=== PATIENT | male | born 1950 | race Caucasian/White ===

== ENCOUNTER 2018-10-03 08:20 | Inpatient (IN) ==
--- NOTE | 2018-09-03 09:55 | Anesthesiology Consultation ---
Date of Service September 03, 2018 Assessment & Plan (1) Encounter for pre-operative examination: Chart Review Chart Review: Acceptable Risk for Surgery and Patient seen in Pre Admission Testing Teaching & Discussion Instructed NPO after midnight before surgery, except medications with 15 cc of water. Medication instructions provided according to the PAT guidelines. History Surgery Operation Date: 10/03/18 09:10 Proposed Procedures p Right Total Shoulder Replacement - Lul Jordan, Height/Weight Height: 6 ft 5 in Weight: 131 kg Allergies Allergy/AdvReac Type Severity Reaction Status Date / Time ibuprofen AdvReac Mild NASAL Verified 09/02/18 08:51 STUFFINESS Medications Home Medications Medication Instructions Recorded Confirmed Last Taken acetaminophen [Tylenol Extra 1,000 mg PO BID PRN 09/02/18 09/02/18 Unknown Strength] atorvastatin 20 mg PO QAM 09/02/18 09/02/18 Unknown fluticasone-salmeterol [Advair 1 inh INHALATION BID 09/02/18 09/02/18 Unknown Diskus] losartan-hydrochlorothiazide 1 tab PO QAM 09/02/18 09/02/18 Unknown albuterol sulfate 1 puff INHALATION Q6H PRN 09/03/18 09/03/18 Unknown meloxicam 15 mg PO QAM 09/03/18 09/03/18 Unknown omeprazole 20 mg PO QAM 09/03/18 09/03/18 Unknown Past Medical History Medical History MRSA nasal colonization Pt tested + prior to lumbar surgery several years ago. Infection control made aware. Asthma Albuterol rescue ~ 1x per week GERD (gastroesophageal reflux disease) Gout Hyperlipidemia Hypertension Hyperuricemia PVC (premature ventricular contraction) PER 2015 HOLTER, "RARE" ECTOPY. BIGEMINY NOTED ON MONITOR ONCE-- EVALUATED BY DR YARBROUGH 2015. ECHO WNL. PT ASYMPTOMATIC. Restless legs Past Surgical History Surgical History History of adenoidectomy History of colonoscopy History of discectomy LUMBAR AREA (X3 SURGERIES WITHIN 21 DAYS) WITH REVISIONS DUE TO DURA BEING CUT DURING FIRST SURGERY History of endoscopic sinus surgery History of esophagogastroduodenoscopy (EGD) History of herniorrhaphy UMBILICAL History of tonsillectomy Past Anesthesia History No Hx of Anesthesia Complications and No Family Hx of Anesthesia Complications History of PONV No Motion Sickness Screening History of Motion Sickness: No Social History Smoking Status: Never smoker Do You Dip or Chew Tobacco: No Hx Alcohol Use: Yes Alcohol type: beer alcohol intake frequency: a few times a week Hx Substance Use: No substance use type: does not use Exercise / Class Metabolic Activity II 4-5 Yardwork/Stairs/Walk up hill Review of Systems Pt denies any recent chest pain, shortness of breath, palpitations, cough, fever or URI. Physical Exam Vital Signs BP: 124/75 P: 61 SPO2: 95% RA T: 98.1 R: 16 ENMT Mouth: + small oral opening; no dental restorations, no chipped teeth and no loose teeth Thyromental Distance: > or= 3.5 Finger Breadths (3.5) Mallampati Class: II Neck normal visual inspection and + thick neck; neck extension not limited Respiratory normal respiratory effort Auscultation: lungs clear to auscultation bilaterally Cardiovascular Rate/Rhythm: regular rate and regular rhythm Heart Sounds: no murmur Vessels: no carotid bruit Testing Electrocardiogram Date: 10/23/17 Findings: + SB @ (59) with frequent PVCs. Otherwise normal. Chest X-Ray Date: 09/03/18 Findings: + NAD Stress Test Date: 04/15/15 Resting EF: 55-59% The examination is adequate to evaluate the referral indication. The stress test was terminated due to fatigue No symptoms were noted. The stress EKG response showed no evidence of ischemia. The exercise echocardiographic examination is normal without resting left ventricular wall motion abnormalities or inducible ischemia. Laboratory Results 09/03/18 10:20 09/03/18 10:20 Blood Type O Positive 09/03/18 10:20 Antibody Screen NEGATIVE 09/03/18 10:20 PT 10.7 Seconds (9.0-12.0) 09/03/18 10:20 INR 1.0 (0.9-1.1) 09/03/18 10:20 APTT 29.3 Seconds (21.0-31.0) 09/03/18 10:20
--- NOTE | 2018-09-03 10:16 | PAT Medication Instructions ---
Medication Instructions Date of Service September 03, 2018 Home Medications acetaminophen [Tylenol Extra Strength] 1,000 mg PO BID PRN atorvastatin 20 mg PO QAM fluticasone-salmeterol [Advair Diskus] 1 inh INHALATION BID losartan-hydrochlorothiazide 1 tab PO QAM albuterol sulfate 1 puff INHALATION Q6H PRN meloxicam 15 mg PO QAM omeprazole 20 mg PO QAM ASK your surgeon for instructions meloxicam 15 mg PO QAM DO NOT take the morning of surgery losartan-hydrochlorothiazide 1 tab PO QAM Take morning of surgery With a small sip of water, OTHERWISE NOTHING TO EAT OR DRINK AFTER MIDNIGHT: acetaminophen [Tylenol Extra Strength] 1,000 mg PO BID PRN (if needed, may be taken up to four hours before surgery) atorvastatin 20 mg PO QAM fluticasone-salmeterol [Advair Diskus] 1 inh INHALATION BID albuterol sulfate 1 puff INHALATION Q6H PRN (if needed, and bring with you to the hospital) omeprazole 20 mg PO QAM Take evening before surgery acetaminophen [Tylenol Extra Strength] 1,000 mg PO BID PRN (if needed) fluticasone-salmeterol [Advair Diskus] 1 inh INHALATION BID albuterol sulfate 1 puff INHALATION Q6H PRN (if needed) Other Notes If you have any questions please call us at [phone] or [phone] or [phone] or [phone]
--- NOTE | 2018-09-03 10:45 | XRay Report ---
XR chest Pre-admission PA/Lat CLINICAL HISTORY: pat preoperative evaluation COMPARISON STUDY: 04/15/2016 FINDINGS: Minimal platelike atelectasis left base. Lungs otherwise appear clear. Diaphragms are destiny h. Moderate degenerative change thoracic spine. IMPRESSION: No acute process. The above report was generated using voice recognition software. It may contain grammatical, syntax or spelling errors. Electronically signed by: Christopher Garcia M.D. 09/03/2018 10:44 AM
[2018-09-03 11:05] LABS: Basophils # (auto) 0.03 K/uL (0-0.2); Basophils % (auto) 0.4 %; Eosinophils # (auto) 0.22 K/uL (0-0.5); Eosinophils % (auto) 2.8 %; Hematocrit (blood only) 42.4 % (42-52); Hemoglobin 14.9 g/dL (14.0-18.0); Immature Granulocytes # (auto) 0.01 K/uL (0.00-0.02); Immature Granulocytes % (auto) 0.1 %; Lymphocytes # (auto) 1.84 K/uL (1.2-3.4); Lymphocytes % (auto) 23.7 %; Mean Corpuscular Hgb Conc 35.1 g/dL (32-36); Mean Corpuscular Volume 90.2 fL (80-100); Mean Platelet Volume 11.6 fL (7.4-10.4); Monocytes # (auto) 0.98 K/uL (0.11-0.59); Monocytes % (auto) 12.6 %; Neutrophils % (auto) 60.4 %; Platelet Count 177 K/uL (130-400); RDW Coefficient of Variation 13.4 % (11.5-14.5); RDW Standard Deviation 43.9 fL (36.4-46.3); White Blood Count 7.78 K/uL (4.8-10.8)
[2018-09-03 11:29] LABS: Calcium 9.1 mg/dl (8.5-10.1); Creatinine Clr Calc Pharmacy 92.9 ml/min; Est GFR (African American) 76.2; Est GFR (Non-African American) 65.7; Potassium 3.9 mmol/L (3.5-5.1)
[2018-09-03 12:40] LABS: Partial Thromboplastin Ratio 1.1; Partial Thromboplastin Time 29.3 Seconds (21.0-31.0); Prothrombin Time 10.7 Seconds (9.0-12.0)
--- NOTE | 2018-10-02 15:50 | History & Physical Report ---
Date of Service October 02, 2018 Assessment & Plan (1) Primary osteoarthritis of right shoulder: We will proceed with a right total shoulder arthroplasty. Postoperatively he will be placed in the sling and kept overnight for postoperative medical management. He plans to use energy physical therapy upon discharge. Present on Admission?: Yes History of Present Illness Chief Complaint: Primary osteoarthritis of the right shoulder Primary Care Provider: Melquiades Persaud MD Dax is a pleasant 67-year-old male who is been having a year and a half history of right shoulder pain. X-rays, MRI, and clinical examination have been diagnostic for primary osteoarthritis of the right shoulder. After failing conservative treatment, he is elected proceed with a right total shoulder arthroplasty. Allergies Allergy/AdvReac Type Severity Reaction Status Date / Time ibuprofen AdvReac Mild NASAL Verified 09/02/18 08:51 STUFFINESS Home Medications Home Medications Medication Instructions Recorded Confirmed Type acetaminophen [Tylenol Extra 1,000 mg PO BID PRN 09/02/18 09/02/18 History Strength] atorvastatin 20 mg PO QAM 09/02/18 09/02/18 History fluticasone-salmeterol [Advair 1 inh INHALATION BID 09/02/18 09/02/18 History Diskus] losartan-hydrochlorothiazide 1 tab PO QAM 09/02/18 09/02/18 History albuterol sulfate 1 puff INHALATION Q6H PRN 09/03/18 09/03/18 History meloxicam 15 mg PO QAM 09/03/18 09/03/18 History omeprazole 20 mg PO QAM 09/03/18 09/03/18 History Past Med/Surg History Medical History Asthma Albuterol rescue ~ 1x per week GERD (gastroesophageal reflux disease) Gout Hyperlipidemia Hypertension Hyperuricemia MRSA nasal colonization Pt tested + prior to lumbar surgery several years ago. Infection control made aware. Patient had 2 negative MRSA nasal swabs 09/03/18 and 09/10/18. PVC (premature ventricular contraction) PER 2015 HOLTER, "RARE" ECTOPY. BIGEMINY NOTED ON MONITOR ONCE-- EVALUATED BY DR YARBROUGH 2015. ECHO WNL. PT ASYMPTOMATIC. Restless legs Surgical History History of adenoidectomy History of colonoscopy History of discectomy LUMBAR AREA (X3 SURGERIES WITHIN 21 DAYS) WITH REVISIONS DUE TO DURA BEING CUT DURING FIRST SURGERY History of endoscopic sinus surgery History of esophagogastroduodenoscopy (EGD) History of herniorrhaphy UMBILICAL History of tonsillectomy Social History Current Living Situation: Spouse Feels Safe at Home: Yes Smoking Status: Never smoker Second Hand Exposure: No Hx Alcohol Use: Yes Alcohol type: beer Alcohol Intake Frequency: a few times a week Hx Substance Use: No Beliefs That Will Affect Care: None Preferred Language: Danish Review of Systems All systems reviewed & are unremarkable except as noted in HPI & below Physical Exam 2 Constitutional: WD/WN, vitals as above Eyes: PERRL, conjunctivae normal, anicteric sclerae ENMT: external ear and nose normal, oropharynx normal Neck: trachea midline, no thyromegaly Respiratory: normal respiratory effort Cardiovascular: RRR, no murmur, no edema Gastrointestinal (Abdomen): normal bowel sounds, soft, nontender, no hepatosplenomegaly Musculoskeletal: Physical examination of the right shoulder reveals decreased range of motion and crepitis throughout. There is good strength with full can testing and external rotation. There is tenderness palpation along the anterior glenohumeral joint line. The right upper extremity is neurovascularly intact. Psychiatric: A+Ox3, euthymic affect Results & Data Diagnostic Findings Radiographs of the right shoulder show osteoarthritis of the glenohumeral joint. There is joint space narrowing, osteophyte formation, and [id number] articulation.
[~2018-10-03 08:20] MED LIST: ACETAMINOPHEN 500 MG TAB PO SCH; CEFAZOLIN 3000MG 65 ML IV SCH; FAMOTIDINE 20 MG TAB PO SCH; GABAPENTIN 300 MG PO SCH; LR 15ML/HR IV SCH; LR 60ML/HR IV SCH; MIDAZOLAM HCL 1 MG/ML 2ML VIAL ONE; ROPIVACAINE 0.5% 5 MG/ML 30 ML VIAL ONE; ROPIVACAINE 0.5% HCL/PF 150 MG, BUPIVACAINE 0.5% MPF 30 ML, EPINEPHrine 30MG/30ML (OR U... INFIL SCH; TRANEXAMIC ACID 1,000 MG **IV Intra-op IV SCH; TRANEXAMIC ACID 1,000 MG **IV Pre-op IV SCH; fentaNYL citrate 100 MCG/2 ML VIAL ONE
--- NOTE | 2018-10-03 09:12 | History & Physical Bridge Note ---
Date of Service October 03, 2018 History & Physical Bridge Note I have examined the patient, reviewed the History & Physical and in the interval since the performance of the History & Physical I have noted the following changes of clinical significance: no changes noted
[2018-10-03] MEDS ORDERED: POVIDONE-IODINE OP SOLN 30 ML BTL ONE (09:29)
[2018-10-03] MEDS ORDERED: ORTHO JOINT ANESTHETIC ONE (09:29)
[2018-10-03] MEDS ORDERED: ATROPINE SULFATE 0.1 MG/ML 10ML SYR IV PRN (09:59)
[2018-10-03] MEDS ORDERED: HYDROmorphone INJ 0.5 MG/0.5 ML SYR IV PRN (09:59)
[2018-10-03] MEDS ORDERED: ONDANSETRON INJ 2 MG/ML 2 ML VIAL IV PRN ×2 (09:59→14:15)
[2018-10-03] MEDS ORDERED: fentaNYL citrate 100 MCG/2 ML VIAL IV PRN (09:59)
[2018-10-03] MEDS ORDERED: ePHEDrine sulfate 50 MG/ML AMP IV PRN (09:59)
[2018-10-03] MEDS ORDERED: MIDAZOLAM HCL 1 MG/ML 2ML VIAL ONE (10:25)
[2018-10-03] MEDS ORDERED: ONDANSETRON INJ 2 MG/ML 2 ML VIAL ONE ×2 (10:25→11:22)
[2018-10-03] MEDS ORDERED: fentaNYL citrate 100 MCG/2 ML VIAL ONE ×3 (11:16→12:45)
[2018-10-03] MEDS ORDERED: HYDROmorphone INJ 2 MG/ML SYR/VIAL ONE ×2 (11:17→11:28)
[2018-10-03] MEDS ORDERED: DEXAMETHASONE SOD INJ 4 MG/ML VIAL ONE (11:22)
[2018-10-03] MEDS ORDERED: NEOSTIGMINE METHYLSULFATE 5 MG/5 ML SYR ONE (11:22)
[2018-10-03] MEDS ORDERED: GLYCOPYRROLATE 0.2 MG/ML VIAL ONE (11:22)
[2018-10-03] MEDS ORDERED: PROPOFOL IV EMULSION 10 MG/ML 20 ML VIAL IV ONE (11:22)
[2018-10-03] MEDS ORDERED: LIDOCAINE HCL 2% 2 ML VIAL/AMP(20MG/ML) INFIL ONE (11:22)
[2018-10-03] MEDS ORDERED: ROCURONIUM BROMIDE 10 MG/ML 5 ML VIAL ONE (12:22)
--- NOTE | 2018-10-03 12:29 | Operative Report ---
Post Operative Report Pre & Post Diagnosis Operation Date: 10/03/18 10:40 Pre-Op Diagnosis: Primary Osteoarthritis Right Shoulder Post-Op Diagnosis: Primary Osteoarthritis Right Shoulder Procedure Operation Date: 10/03/18 10:40 Actual Procedures p Right Total Shoulder Replacement(Right) - Lul Jordan DO Surgeon Lul Jordan DO Computer Builder Lul Gamino PAC Estimated Blood Loss 250 Findings Consistent with Post-Op Diagnosis Specimens None Complications none Disposition Disposition: Recovery Room Indications Dax is a pleasant 68-year-old male who presented my office with chronic increasing right shoulder pain. MRI and clinical examination were diagnostic for primary osteoarthritis of the right shoulder. After failing conservative treatment, he elected to proceed with a right total shoulder arthroplasty. Description of Procedure Implants used: I used a Biomet Comprehensive total shoulder arthroplasty system with a size 17 press fit mini humeral stem, a size 50 x 21 eccentric humeral head, and a large size glenoid with a Regenerex peg. The glenoid was cemented in place with Palacos G cement. The patient arrived at [facility] for the above procedure. There were seen in the preoperative holding area and the operative extremity was identified and signed. They were given a preoperative antibiotic and an interscalene nerve block. They were taken back to the operating room, laid on table in supine position, and put under general anesthesia. They were then put into the beachchair position. The shoulder was then prepped and draped in sterile fashion. A timeout was done and the patient in the operative extremity was properly identified. A deltopectoral approach was used. Dissection was taken down through the fascia and the deltoid was retracted laterally and the conjoined tendon was retracted medially. The anterior shoulder was exposed. The long head of the biceps tendon was tenodesed to the upper border of the pectoralis major. The subscapularis was then released off the lesser tuberosity with a centimeter of cuff tissue remaining. The inferior capsule was released and the humeral head was dislocated. The rotator cuff was inspected and intact. A canal finding reamer was sent down the center of the humeral canal. Sequential reaming up to a size 17 reamer was done. Offset reamer a proximal humeral resection guide was placed. The proximal humerus was resected at 135 of inclination and 30 of retroversion. Inferior osteophytes were then removed and the glenoid was exposed. Time was spent doing an appropriate labral release. A [employer] signature guide was then attached onto the anterior rim of the glenoid. A 3.2 mm Steinmann pin was then placed in the total shoulder arthroplasty hole. The glenoid was then reamed with a propeller reamer. The central post cutter was then used to prepare for the central boss. The cannulated peripheral peg drill guide was then placed and 3 peg holes were drilled. The final size large glenoid was then cemented in place with Palacos G cement. Surrounding soft tissues were then injected with 100 cc of an orthopedic pain control cocktail. Once cement had dried the proximal humerus was once again exposed. Sequential broaching of the humerus up to a size 17 broach was done. Off that broach a size 50 x 21 eccentric humeral head was trialed. The shoulder was then reduced , brought through a full range of motion and felt to be stable. The shoulder was then dislocated and the broach was removed. The final size 17 mini humeral stem implant was then impacted into place. A size 50 x 21 eccentric humeral head was then impacted onto the humeral stem. The shoulder was then reduced and once again brought through a full range of motion and felt to be stable. The subscapularis was then tenodesed back to the lesser tuberosity with transosseous FiberWire sutures and side to side sutures with the arm in 45 of external rotation. 2 sutures were placed in the lateral rotator interval. The wound was then irrigated with 3 L of normal saline solution with bacitracin. Hemostasis was obtained. The skin was then closed with 2-0 Vicryl, 3-0V lock suture, and edie. A soft dressing was placed as well as a regular arm sling. The patient was then extubated and transferred to a hospital bed. There were taken to the postanesthesia care unit in stable condition. The tolerated the procedure well. I attest to the content of the Intraoperative Record and any orders documented therein. Any exceptions are noted below.
--- NOTE | 2018-10-03 13:21 | XRay Report ---
XR shoulder RT min 2V routine CLINICAL HISTORY: Post shoulder surgery COMPARISON: Right shoulder radiographs and CT of the right shoulder September 03, 2018. FINDINGS: Alignment of the right shoulder arthroplasty is anatomic. There is no fracture or unexpect ed radiopaque foreign body. There are skin edie. IMPRESSION: Expected findings following right shoulder arthroplasty. Electronically signed by: Jose Alberto Hoang M.D. 10/03/2018 1:20 PM
--- NOTE | 2018-10-03 13:58 | Anesthesiology Progress Note ---
Date of Service October 03, 2018 Anesthesia Post Procedure Vital Signs Vital Signs: Temp Pulse Pulse Resp BP Pulse Ox 10/03/18 13:40 36.3 C L 59 L 21 150/94 H 94 10/03/18 13:30 56 L 12 150/84 H 96 10/03/18 13:20 60 14 161/88 H 98 10/03/18 13:10 61 18 177/94 H 98 10/03/18 13:04 36.1 C L 67 12 173/92 H 98 10/03/18 09:21 36.5 C 59 L 18 139/87 95 Notes Mental Status: alert / awake / arousable and participated in evaluation Patient Amnestic to Procedure: Yes Nausea / Vomiting: adequately controlled Pain: adequately controlled Airway Patency, RR, SpO2: stable & adequate BP & HR: stable & adequate Hydration State: stable & adequate Anesthetic Complications: no major complications apparent and Pt Satisfied with anesthetic care Notes: I did a preop nerve block and immediately took patient into the OR. He did not have any appreciable sensory or motor loss prior to induction and intubation. He required some intraoperative narcotic but remained hemodynamically stable throughout the procedure. In the PACU, patient had full distal motor (hand) but was unable to fully abduct his operative shoulder (with sling loosened). He stated he had NO pain and felt only pressure around the surgical incision (tested all around bandage). I debated doing a post-op rescue block but given that patient felt numbness at surgical site, his lack of pain and given that he did not desire additional block/numbing medicine, this was not done. Patient meeting discharge criteria and will be transferred to floor in stable condition. Patient agrees with plan.
[2018-10-03] MEDS ORDERED: OXYCODONE HCL IR 5 MG TAB (IMMEDIATE RELEASE) PO PRN (14:15)
[2018-10-03] MEDS ORDERED: POLYETHYLENE (MIRALAX) 17 GM PACK PO PRN (14:15)
[2018-10-03] MEDS ORDERED: ALBUTEROL HFA 8 GM INHALER INH PRN (14:15)
[2018-10-03] MEDS ORDERED: BISACODYL 10 MG SUPP PR PRN (14:15)
[2018-10-03] MEDS ORDERED: NALOXONE HCL 0.4 MG/1 ML VIAL/CARP IV PRN (14:15)
[2018-10-03] MEDS ORDERED: METOCLOPRAMIDE HCL INJ 5 MG/ML 2 ML VIAL IV PRN (14:15)
[2018-10-03] MEDS ORDERED: MoRPHine SULFATE 2 MG/ML CARP IV PRN (14:15)
[2018-10-03] MEDS ORDERED: MAGNESIUM HYDROXIDE SUSP 30 ML UDC PO PRN (14:15)
[2018-10-03] MEDS: POTASSIUM CHLORIDE 10 MEQ in SODIUM CHLORIDE 0.9% 1000ML 1,000 ML IV SCH (15:27)
[2018-10-03] MEDS: LOSARTAN/HCTZ 50/12.5MG TAB PO SCH (15:31)
[2018-10-03] MEDS: KETOROLAC TROMETHAMINE 15 MG/ML VIAL IV SCH ×2 (18:07→23:59)
[2018-10-03] MEDS: CEFAZOLIN 2000MG 2,000 MG/15 ML SYR IV SCH (18:08)
[2018-10-03] MEDS: ERYTHROMYCIN OP OINT 5 MG/GM 3.5 GM TUBE OPL SCH ×2 (18:08→20:58)
[2018-10-03] MEDS: DOCUSATE SODIUM 100 MG CAP PO SCH (20:58)
[2018-10-03] MEDS: ACETAMINOPHEN 500 MG TAB PO SCH (20:59)
[2018-10-03] MEDS ORDERED: SENNA 8.6 MG TAB PO SCH (21:00)
[2018-10-03] MEDS: FLUTICASONE/SALMETEROL 250/50 (ADVAIR) 14 PUFF/1 INHALER INH SCH (21:00)
[2018-10-04] MEDS: POTASSIUM CHLORIDE 10 MEQ in SODIUM CHLORIDE 0.9% 1000ML 1,000 ML IV SCH (02:03)
[2018-10-04] MEDS: CEFAZOLIN 2000MG 2,000 MG/15 ML SYR IV SCH (02:03)
[2018-10-04] MEDS: ACETAMINOPHEN 500 MG TAB PO SCH (05:50)
[2018-10-04 05:51] LABS: Basophils # (auto) 0.01 K/uL (0-0.2); Basophils % (auto) 0.1 %; Hematocrit (blood only) 35.8 % (42-52); Hemoglobin 12.4 g/dL (14.0-18.0); Immature Granulocytes # (auto) 0.03 K/uL (0.00-0.02); Immature Granulocytes % (auto) 0.2 %; Lymphocytes # (auto) 1.23 K/uL (1.2-3.4); Lymphocytes % (auto) 8.4 %; Mean Corpuscular Hgb Conc 34.6 g/dL (32-36); Mean Corpuscular Volume 89.9 fL (80-100); Mean Platelet Volume 11.5 fL (7.4-10.4); Monocytes # (auto) 1.55 K/uL (0.11-0.59); Monocytes % (auto) 10.6 %; Neutrophils # (auto) 11.74 K/uL (1.4-6.5); Neutrophils % (auto) 80.7 %; Platelet Count 155 K/uL (130-400); RDW Coefficient of Variation 13.5 % (11.5-14.5); RDW Standard Deviation 44.4 fL (36.4-46.3); Red Blood Count 3.98 M/uL (4.7-6.1); White Blood Count 14.56 K/uL (4.8-10.8)
[2018-10-04] MEDS: KETOROLAC TROMETHAMINE 15 MG/ML VIAL IV SCH (05:51)
[2018-10-04 06:25] LABS: BUN Creatinine Ratio 19.4 (10-20); Calcium 8.2 mg/dl (8.5-10.1); Creatinine Clr Calc Pharmacy 83.2 ml/min; Est GFR (Non-African American) 57.8; Potassium 3.9 mmol/L (3.5-5.1)
[2018-10-04] MEDS: ERYTHROMYCIN OP OINT 5 MG/GM 3.5 GM TUBE OPL SCH (08:24)
[2018-10-04] MEDS: LOSARTAN/HCTZ 50/12.5MG TAB PO SCH (08:24)
[2018-10-04] MEDS: DOCUSATE SODIUM 100 MG CAP PO SCH (08:24)
[2018-10-04] MEDS: FLUTICASONE/SALMETEROL 250/50 (ADVAIR) 14 PUFF/1 INHALER INH SCH (08:26)
--- NOTE | 2018-10-04 08:50 | Orthopedic Progress Note ---
Date of Service October 04, 2018 Assessment & Plan (1) Primary osteoarthritis of right shoulder: Overall he is doing very well. Is not having much pain in the right shoulder. He will be seen by physical therapy this morning. He can be discharged to home later this morning. He will get energy physical therapy. He will follow-up with orthopedics in 2 weeks. Present on Admission?: Yes Subjective Dax was seen and examined at bedside this morning. Overall he is doing very well. He is not having too much pain in the right shoulder. He was able to get some sleep last night. He has no complaints. Physical Exam 2 Vital Signs (Past 24 Hours): Last Vital Signs Temp 36.7 C 10/04/18 08:41 Pulse 62 10/04/18 08:41 Resp 18 10/04/18 08:41 BP 132/77 10/04/18 08:41 Pulse Ox 94 10/04/18 08:41 Musculoskeletal: On physical examination of the right shoulder, the dressing is clean and dry. His radial, median, and ulnar nerves are all checked and intact his wrist. He is wearing a sling as instructed. His axillary nerve was not checked yet. Results & Data Laboratory Results H & H 09/03/18 10/04/18 Range/Units 10:20 05:30 Hgb 14.9 12.4 L (14.0-18.0) g/dL Hct 42.4 35.8 L (42-52) % Coagulation 09/03/18 Range/Units 10:20 INR 1.0 (0.9-1.1) Diagnostic Findings Postoperative x-rays of the right shoulder show the prosthesis to be in anatomic alignment without any evidence of fracture, dislocation, or loosening.
--- NOTE | 2018-10-04 08:51 | Discharge Summary ---
Date of Service October 04, 2018 Admission HPI Per Admitting Provider Dax is a pleasant 67-year-old male who is been having a year and a half history of right shoulder pain. X-rays, MRI, and clinical examination have been diagnostic for primary osteoarthritis of the right shoulder. After failing conservative treatment, he is elected proceed with a right total shoulder arthroplasty. Specialty Data Orthopedic H & H 09/03/18 10/04/18 Range/Units 10:20 05:30 Hgb 14.9 12.4 L (14.0-18.0) g/dL Hct 42.4 35.8 L (42-52) % Coagulation 09/03/18 Range/Units 10:20 INR 1.0 (0.9-1.1) Discharge Data Consultations 10/03/18 14:15 Consult Case Management - Discharge Planning Routine Procedures Performed Operation Date: 10/03/18 10:40 Actual Procedures p Right Total Shoulder Replacement(Right) - Lul Jordan DO [facility] Course (1) Primary osteoarthritis of right shoulder: On October 03, 2018 Dax arrived at [facility] and underwent a right total shoulder arthroplasty without complication. He had a general anesthetic and a right interscalene nerve block. Postoperatively he was placed in an arm sling and discharged to general orthopedic floors. His hospital course was uneventful. On postop day #1 his H&H was stable and his pain was well controlled. He was able to participate well with physical therapy. He was discharged home with energy physical therapy. He will follow- up with orthopedics in 2 weeks.
[2018-10-04] MEDS ORDERED: PANTOprazole 40 MG TAB PO SCH (09:00)
[2018-10-04] MEDS ORDERED: ATORVASTATIN 20 MG TAB PO SCH (09:00)
--- NOTE | 2018-10-04 10:13 | Anesthesiology Progress Note ---
Date of Service October 04, 2018 Anesthesia Post Procedure Vital Signs Vital Signs: Temp Pulse Resp BP Pulse Ox 10/04/18 08:41 36.7 C 62 18 132/77 94 10/04/18 07:26 36.7 C 62 18 132/77 94 10/04/18 03:29 36.6 C 80 16 113/68 92 10/03/18 23:00 36.6 C 76 16 105/64 92 10/03/18 17:12 36.3 C L 73 18 142/91 H 94 10/03/18 16:03 36.3 C L 63 18 129/83 91 10/03/18 15:07 34.8 C L 68 16 136/85 92 10/03/18 14:43 63 18 145/91 H 97 10/03/18 14:25 36.5 C 60 16 147/94 H 95 10/03/18 13:55 57 L 12 146/85 H 92 10/03/18 13:40 36.3 C L 59 L 21 150/94 H 94 10/03/18 13:30 56 L 12 150/84 H 96 10/03/18 13:20 60 14 161/88 H 98 10/03/18 13:10 61 18 177/94 H 98 10/03/18 13:04 36.1 C L 67 12 173/92 H 98 Pain Intensity Right Shoulder: Pain Intensity: 1 Notes Mental Status: alert / awake / arousable Patient Amnestic to Procedure: Yes Nausea / Vomiting: adequately controlled Pain: adequately controlled Airway Patency, RR, SpO2: stable & adequate BP & HR: stable & adequate Hydration State: stable & adequate Anesthetic Complications: no major complications apparent
== END 2018-10-04 10:35 | disposition home or self-care (01) | DRG 483 ==
LOC: ASU 08:20 → 3E 12:34

== ENCOUNTER 2022-01-28 19:57 | Inpatient (IN) ==
[2022-01-28 20:28] LABS: Basophils # (auto) 0.04 K/uL (0-0.2); Basophils % (auto) 0.2 %; Eosinophils # (auto) 0.24 K/uL (0-0.5); Eosinophils % (auto) 1.4 %; Hematocrit (blood only) 40.8 % (42-52); Hemoglobin 13.5 g/dL (14.0-18.0); Immature Granulocytes # (auto) 0.04 K/uL (0.00-0.02); Immature Granulocytes % (auto) 0.2 %; Lymphocytes # (auto) 1.44 K/uL (1.2-3.4); Lymphocytes % (auto) 8.2 %; Mean Corpuscular Hemoglobin 30.4 pg (25-34); Mean Corpuscular Hgb Conc 33.1 g/dL (32-36); Mean Corpuscular Volume 91.9 fL (80-100); Monocytes # (auto) 2.33 K/uL (0.11-0.59); Monocytes % (auto) 13.3 %; Neutrophils # (auto) 13.39 K/uL (1.4-6.5); Neutrophils % (auto) 76.7 %; Platelet Count 280 K/uL (130-400); RDW Coefficient of Variation 13.3 % (11.5-14.5); RDW Standard Deviation 44.3 fL (36.4-46.3); Red Blood Count 4.44 M/uL (4.7-6.1); White Blood Count 17.48 K/uL (4.8-10.8)
[2022-01-28 20:43] LABS: Albumin Globulin Ratio 1.3 (0.9-2); Albumin Level 4.3 gm/dl (3.4-5.0); BUN Creatinine Ratio 20.7 (10-20); Bilirubin,Total 0.7 mg/dl (0.2-1.0); Calcium 9.5 mg/dl (8.5-10.1); Creatinine Clr Calc Pharmacy 84.7 ml/min; Est GFR (African American) 72.5 ml/min; Est GFR (Non-African American) 62.6 ml/min; Globulin 3.4 gm/dl (2.5-4.0); Total Protein 7.7 gm/dl (6.0-8.3)
[2022-01-28] MEDS ORDERED: ACETAMINOPHEN 500 MG TAB PO STA (21:19)
[2022-01-28] MEDS ORDERED: SODIUM CHLORIDE 0.9% 1000ML 500 ML IV ONE (22:26)
[2022-01-28] MEDS ORDERED: SODIUM CHLORIDE 0.9% 1000ML 1,000 ML IV SCH (22:30)
[2022-01-28] MEDS ORDERED: CEFEPIME 2,000 MG/20 ML VIAL IV STA (22:31)
[2022-01-28] MEDS ORDERED: VANCOMYCIN HCL 2,500 MG in SODIUM CHLORIDE 0.9% 500 ML IV ONE (22:31)
[2022-01-28] MEDS ORDERED: VANCOMYCIN CONSULT ACTIVE PRN (22:31)
[2022-01-29 00:19] LABS: Influenza A virus by PCR Negative (Neg); Influenza B virus by PCR Negative (Neg); RSV by PCR Negative (Neg); SARS CoV2 RNA(COVID-19) InHosp NEGATIVE (Negative)
[2022-01-29] MEDS: HYDROmorphone INJ 0.5 MG/0.5 ML SYR IV PRN ×2 (01:13→03:38)
[2022-01-29] MEDS ORDERED: ONDANSETRON INJ 2 MG/ML 2 ML VIAL IV PRN ×2 (02:52→16:24)
[2022-01-29] MEDS ORDERED: ALBUTEROL HFA 8 GM INHALER INH PRN (02:52)
[2022-01-29] MEDS ORDERED: PANTOprazole 40 MG TAB PO PRN (03:00)
[2022-01-29] MEDS: SODIUM CHLORIDE 0.9% 1000ML 1,000 ML IV SCH ×2 (05:33→22:04)
--- NOTE | 2022-01-29 06:43 | History & Physical Report ---
Date of Service January 29, 2022 Assessment & Plan (1) Status post left hip replacement: His incision actually does not look too bad. However, given the elevated sed rate and CRP, as well as the elevated white count, also considering the fact that he is having increased incisional pain and he was dealing with fevers yesterday, I think it is worth being aggressive with the hip and washout a possible small infected hematoma. He will be n.p.o. after midnight. We will plan to do the I&D tomorrow. History of Present Illness Chief Complaint: Possible superficial infection of the left hip. Primary Care Provider: Melquiades Persaud MD Dax is a pleasant 71-year-old male who I did a left anterior hip replacement on 3 weeks ago. He was initially doing very well. He came by our office last week and had edie removed. He then adds an episode where he had some bloody discharge while in the shower from the inferior aspect of his incision. After that he began having some incisional pain and discomfort. Yesterday, he began having fevers and chills. He came to the emergency room with his . His white count as well as a sed rate and CRP were elevated. His incision looked fully closed. I decided to admit him to the hospital for possible superficial I&D of the left hip the following day. Allergies Allergy/AdvReac Type Severity Reaction Status Date / Time ibuprofen AdvReac Mild NASAL Verified 01/28/22 21:51 STUFFINESS Home Medications Medication Instructions Recorded Confirmed Type losartan 50 mg-hydrochlorothiazide 1 tab PO QAM 09/02/18 01/28/22 History 12.5 mg tablet albuterol sulfate 90 mcg/actuation 1 puff INHALATION Q6H PRN 09/03/18 01/28/22 History aerosol inhaler omeprazole 20 mg capsule,delayed 20 mg PO QAM PRN 09/03/18 01/28/22 History release meloxicam 15 mg tablet 15 mg PO QAM 11/17/21 01/28/22 History oxycodone-acetaminophen 5 mg-325 1 tab PO Q6H PRN #30 tab 01/03/22 01/28/22 Rx mg tablet (Percocet) aspirin 81 mg tablet,delayed 81 mg PO BID #84 tab 01/05/22 01/28/22 Rx release (Adult Aspirin Regimen) atorvastatin 40 mg tablet 40 mg PO DAILY 01/28/22 01/28/22 History Past Med/Surg History Medical History Asthma Very well controlled > rare res inh use GERD (gastroesophageal reflux disease) Well controlled and stable Gout No recent issues Hyperlipidemia Hypertension 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 BIGEMINY NOTED ON MONITOR ONCE-- EVALUATED BY DR YARBROUGH 2014. ECHO WNL. PT ASYMPTOMATIC. Restless legs Stable Surgical History History of adenoidectomy History of cataract surgery RIGHT AND LEFT History of colonoscopy History of discectomy LUMBAR AREA (X3 SURGERIES WITHIN 21 DAYS) WITH REVISIONS DUE TO DURA BEING CUT DURING FIRST SURGERY L4-5 History of endoscopic sinus surgery History of esophagogastroduodenoscopy (EGD) History of herniorrhaphy UMBILICAL History of tonsillectomy History of tooth extraction History of total shoulder replacement RIGHT - [facility] Hx of thumb surgery right Social History Smoking Status: Former smoker Second Hand Exposure: No; Do You Dip or Chew Tobacco: No; Hx Alcohol Use: Yes Alcohol type: beer and wine Hx Substance Use: No Preferred Language: Persian Communication Ability: Effective 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 Physical Exam On physical examination of the left hip, the incision is fully closed. There is a little bit of induration in the area. There is a little bit of redness near the incision but there certainly does not appear to be any aggressive infections or signs of large abscess. The wound has not been draining. Constitutional WD/WN, vitals as above Eyes PERRL, conjunctivae normal, anicteric sclerae ENMT external ear and nose normal, oropharynx normal Neck trachea midline, no thyromegaly Respiratory normal respiratory effort Cardiovascular RRR, no murmur, no edema Gastrointestinal (Abdomen) normal bowel sounds, soft, nontender, no hepatosplenomegaly Psychiatric A+Ox3, euthymic affect Results & Data Results & Data Laboratory Results . Diagnostic Findings . PG Care Time/CCT Total # of Minutes Spent Total Time Spent with Patient: Total time spent is greater than 50% in coordination of care (as documented) at patient's floor/unit and/or counseling patient: Coding Level of Care Code 40466 Initial Inpt Care Lvl 2 (57 - DECISION FOR SURGERY) Diagnoses Status post left hip replacement Z96.642
[2022-01-29] MEDS: VANCOMYCIN HCL 1,250 MG in SODIUM CHLORIDE 0.9% 250 ML IV SCH ×2 (07:49→20:52)
[2022-01-29] MEDS: oxyCODONE/ACETAMINOPHEN 5mg/325mg TAB PO PRN ×2 (07:51→21:05)
[2022-01-29] MEDS: ATORVASTATIN 40 MG TAB PO SCH (07:52)
[2022-01-29] MEDS: ASPIRIN 81 MG ECTAB PO SCH ×2 (07:52→20:58)
[2022-01-29] MEDS: LOSARTAN/HCTZ 50/12.5MG TAB PO SCH (07:52)
--- NOTE | 2022-01-29 07:56 | XRay Report ---
XR hip LT min 2V CLINICAL HISTORY: L hip arthoplasty, fever COMPARISON STUDY: Left hip 01/05/2022. FINDINGS: There is a left total hip arthroplasty. The hardware is intact. No fracture or dislocation. No abnormal periprosthetic lucency. Soft tissues are unremarkable. IMPRESSION: Status post left total hip arthroplasty. No significant abnormality identified within th e left hip. ACT 112: Negative or not required by law. Electronically signed by: Aníbal Soares M.D. 01/29/2022 7:55 AM
--- NOTE | 2022-01-29 07:58 | XRay Report ---
XR chest 1V portable HISTORY: fever COMPARISON: Chest 11/22/2021. FINDINGS: The lungs are clear. Cardiac silhouette is normal in size. No pleural effusions. No pneumot horax. There is a right shoulder prosthesis. IMPRESSION: No acute process. ACT 112: Negative or not required by law. Electronically signed by: Aníbal Soares M.D. 01/29/2022 7:57 AM
--- NOTE | 2022-01-29 07:58 | XRay Report ---
XR chest 2V PA/lateral HISTORY: Fever. pre-op COMPARISON: Chest 01/28/2022. FINDINGS: The lungs are clear. Cardiac silhouette is normal in size. No pleural effusions. No pneumot horax. Right shoulder prosthesis. IMPRESSION: No acute process. ACT 112: Negative or not required by law. Electronically signed by: Aníbal Soares M.D. 01/29/2022 7:57 AM
--- NOTE | 2022-01-29 09:31 | Anesthesiology Consultation ---
Date of Service January 29, 2022 Assessment & Plan (1) Encounter for pre-operative examination: Chart Review Chart Review: Acceptable Risk for Surgery and Patient NOT seen in Pre Admission Testing Consults Requested none History Surgery Operation Date: 01/29/22 08:00 Proposed Procedures p Left Hip Superficial Incision and Drainage - Lul Jordan, Height/Weight Height: 6 ft 5 in Weight: 133.7 kg Allergies Allergy/AdvReac Type Severity Reaction Status Date / Time ibuprofen AdvReac Mild NASAL Verified 01/28/22 21:51 STUFFINESS Medications Home Medications Medication Instructions Recorded Confirmed Last Taken losartan 50 mg-hydrochlorothiazide 1 tab PO QAM 09/02/18 01/28/22 01/04/22 08:00 12.5 mg tablet albuterol sulfate 90 mcg/actuation 1 puff INHALATION Q6H PRN 09/03/18 01/28/22 01/05/22 04:30 aerosol inhaler omeprazole 20 mg capsule,delayed 20 mg PO QAM PRN 09/03/18 01/28/22 08/12/19 release meloxicam 15 mg tablet 15 mg PO QAM 11/17/21 01/28/22 12/29/21 08:00 oxycodone-acetaminophen 5 mg-325 1 tab PO Q6H PRN #30 tab 01/03/22 01/28/22 01/04/22 21:00 mg tablet (Percocet) aspirin 81 mg tablet,delayed 81 mg PO BID #84 tab 01/05/22 01/28/22 Unknown release (Adult Aspirin Regimen) atorvastatin 40 mg tablet 40 mg PO DAILY 01/28/22 01/28/22 Unknown Active Medications Generic Name Dose Route Start Last Admin Trade Name Freq PRN Reason Stop Dose Admin Aspirin 81 mg 01/29/22 09:00 01/29/22 07:52 Aspirin 81 Mg Ectab PO 02/28/22 08:59 81 mg BID BIENVENIDO Administration Atorvastatin Calcium 40 mg 01/29/22 09:00 01/29/22 07:52 Atorvastatin 40 Mg Tab PO 02/28/22 08:59 40 mg DAILY BIENVENIDO Administration HCTZ/Losartan Potassium 1 tab 01/29/22 09:00 01/29/22 07:52 Losartan/Hctz 50/12.5mg Tab PO 02/28/22 08:59 1 tab QAM BIENVENIDO Administration Sodium Chloride 1,000 mls @ 80 mls/hr 01/29/22 02:52 01/29/22 05:33 Nss 1000ml IV 02/28/22 02:51 80 mls/hr .[id number] BIENEVNIDO Administration Vancomycin HCl 1,250 mg/ 275 mls @ 200 mls/hr 01/29/22 08:00 01/29/22 09:25 Sodium Chloride IV 02/05/22 07:59 Infused Q12H BIENVENIDO Infusion Oxycodone/Acetaminophen 1 tab 01/29/22 02:52 01/29/22 07:51 Oxycodone/Acetaminophen 5mg/325mg Tab PO 02/12/22 02:51 1 tab Q6H PRN Administration pain Past Medical History Medical History Asthma Very well controlled > rare res inh use GERD (gastroesophageal reflux disease) Well controlled and stable Gout No recent issues Hyperlipidemia Hypertension 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 BIGEMINY NOTED ON MONITOR ONCE-- EVALUATED BY DR YARBROUGH 2015. ECHO WNL. PT ASYMPTOMATIC. Restless legs Stable Past Surgical History Surgical History History of adenoidectomy History of cataract surgery RIGHT AND LEFT History of colonoscopy History of discectomy LUMBAR AREA (X3 SURGERIES WITHIN 21 DAYS) WITH REVISIONS DUE TO DURA BEING CUT DURING FIRST SURGERY L4-5 History of endoscopic sinus surgery History of esophagogastroduodenoscopy (EGD) History of herniorrhaphy UMBILICAL History of tonsillectomy History of tooth extraction History of total shoulder replacement RIGHT - [facility] Hx of thumb surgery right Social History Smoking Status: Former smoker tobacco type: cigarettes Do You Dip or Chew Tobacco: No Hx Alcohol Use: Yes Alcohol type: beer and wine alcohol intake frequency: a few times a week Hx Substance Use: No substance use type: does not use Physical Exam Vital Signs Last Vital Signs Temp 99.9 F H 01/29/22 07:18 Pulse 87 01/29/22 07:18 Resp 16 01/29/22 07:18 BP 135/69 01/29/22 07:18 Pulse Ox 95 01/29/22 07:18 Testing Laboratory Results 01/28/22 20:16 Electrocardiogram Date: 01/29/22 Findings: + NSR @ Chest X-Ray Date: 01/29/22 Findings: + NAD
[2022-01-29 09:51] LABS: Creatinine Clr Calc Pharmacy 118.8 ml/min; Est GFR (African American) 100.9 ml/min; Est GFR (Non-African American) 87.1 ml/min
--- NOTE | 2022-01-29 12:29 | Pharmacy Report ---
Pharmacy Vanc AUC Short Note - Date of Service January 29, 2022 - Assessment & Plan Assessment 71 year old M receiving empiric vancomycin for treatment of possible superficial infection of left hip. Patient did have left anterior hip replacement ~3 weeks ago. Patient to have I&D today. Pertinent microbiologic data includes: blood cultures x 2 pending. Patient with leukocytosis and fevers. SCr decreased to 0.85 mg/dL today from 1.16 mg/dL, but baseline appears to be near 1.1 mg/dL. Plan Vancomycin * AUC/GARY is the preferred PK/PD target for vancomycin * AUC guided dosing is effective and associated with decreased risk of nephrotoxicity compared to traditional trough targets * Loading dose of 2500 mg IV x 1 (~20 mg/kg) * Current maintenance dose of 1250 mg IV q12h is predicted to achieve target AUC/GARY of 400-600 mg/L.hr and may be associated with a 11 % risk of nephrotoxicity * Will order trough/random level once at steady-state, or sooner if uncertainty in renal function Pharmacy will continue to follow and will adjust dose/frequency as necessary. Thank you.
[2022-01-29] MEDS ORDERED: MIDAZOLAM HCL 1 MG/ML 2ML VIAL ONE (13:36)
[2022-01-29] MEDS ORDERED: PROPOFOL IV EMULSION 10 MG/ML 20 ML VIAL IV ONE (13:36)
[2022-01-29] MEDS ORDERED: LIDOCAINE 2% 2 ML VIAL/AMP(20MG/ML) INFIL ONE (13:36)
[2022-01-29] MEDS ORDERED: fentaNYL citrate 100 MCG/2 ML VIAL ONE ×4 (13:36→16:17)
[2022-01-29] MEDS ORDERED: ACETAMINOPHEN 1000 MG/100 ML IV IV ONE (14:25)
[2022-01-29] MEDS ORDERED: DAKIN'S SOLN 0.25% HALF STRENGTH 473ML BTL EXT ONE (15:15)
--- NOTE | 2022-01-29 15:45 | Operative Report ---
PG Post Operative Report Pre & Post Diagnosis Operation Date: 01/29/22 08:00 Pre-Op Diagnosis: Superficial infected left hip replacement Post-Op Diagnosis: Deep periprosthetic joint infection left hip I identified the patient and participated in the time-out.: Yes Procedure Operation Date: 01/29/22 08:00 Actual Procedures p irrigation and debridement of deep infection of the left hip with femoral head and acetabular polyethylene exchange (Left) - Lul Jordan DO Surgeon Lul Jordan DO Irradiated Fuel Handler Lul Gamino PAC Estimated Blood Loss 200 Findings Consistent with Post-Op Diagnosis Specimens 2 cultures Complications none Disposition Disposition: Recovery Room Indications Dax is a pleasant 71-year-old male who underwent a left anterior hip replacement 3 weeks ago. He initially did well. He then had some bloody drainage at the inferior aspect of his incision. That only lasted for a few hours and then it closed. After that time he began having pain in his left hip. He began having fever and chills. He came to the emergency room last night. I admitted to my service for irrigation debridement of the left hip the following day. Description of Procedure On January 29, 2022 Dax was brought down from his hospital room to the preoperative holding area. The operative extremity identified and signed. He had already received some vancomycin. He was taken back the operating room and laid on the table in supine position. He was put under general anesthesia. The left leg was brought out to a purist leg positioner. The left hip was then prepped and draped in sterile fashion. A timeout was done. The patient and the operative extremity was properly identified. The previous anterior incision was opened back up. Initially I did not see any signs of infection. I extended the incision a little bit distally and there was a very large amount of purulent discharge. Unfortunately it tracked straight down to the hip joint. 2 swab cultures were taken. At this point I decided to open up the entire hip and do modular component exchange. The fascia was opened back up and the rectus was retracted medially and the tensor fascia was retracted laterally. The capsule was easily identified and the previous Vicryl sutures were removed. 3 L of normal saline solution was irrigated throughout the hip joint to remove the gross infection. The hip was then dislocated and th e femoral head was then removed. The acetabulum was then exposed. The acetabular liner was then removed. Time was then spent doing a debridement of all surrounding soft tissues. Once I was happy with the debridement the components were scrubbed with a chlorhexidine scrub brush. I then did a 3- minute Betadine lavage. That was followed by irrigation with 3 L of normal saline solution by pulse lavage. I then once again scrubbed the complements with a chlorhexidine scrub brush. I then did a 3-minute lavage with Dakin solution. That was followed by an additional irrigation with 3 L of normal saline solution by pulse lavage. The drapes were then changed. Cautery tips, suctions, and pulse lavage were completely changed. All surgical gloves were changed. I then used a clean table. The acetabulum was then exposed. A new polyethylene insert was snapped into place. The femoral neck was then exposed and a new femoral head was impacted into place. The hip was then reduced. The wound was once again irrigated with normal saline solution. Hemostasis was obtained. The capsule was closed with #0 PDS suture. 2 Hemovac drains were placed. The fascia was then closed with #0 PDS suture. Skin was closed with 2- 0 Vicryl and edie. He was then placed in a Silverlon dressing. He was then extubated and transferred to a hospital bed. He was taken to the postanesthesia care unit in stable condition. He tolerated the procedure well. Lul Gamino PA-C, was present for the entire procedure. He was critical for patient positioning, prepping, draping, retraction exposure, wound closure and application of sterile dressing. I attest to the content of the Intraoperative Record and any orders documented therein. Any exceptions are noted below.
[2022-01-29] MEDS ORDERED: ONDANSETRON INJ 2 MG/ML 2 ML VIAL ONE (16:17)
[2022-01-29] MEDS: fentaNYL citrate 100 MCG/2 ML VIAL IV PRN ×4 (16:19→16:34)
[2022-01-29] MEDS ORDERED: ePHEDrine sulfate 50 MG/ML AMP IV PRN (16:24)
[2022-01-29] MEDS ORDERED: ATROPINE SULFATE 0.1 MG/ML 10ML SYR IV PRN (16:24)
--- NOTE | 2022-01-29 16:44 | Anesthesiology Progress Note ---
Date of Service January 29, 2022 Anesthesia Post Procedure Vital Signs Vital Signs: Temp Pulse Pulse Resp BP BP Pulse Ox 01/29/22 16:35 91 H 17 110/71 98 01/29/22 16:25 91 H 18 111/69 98 01/29/22 16:15 93 H 18 127/74 99 01/29/22 16:09 100.0 F H 96 H 18 134/70 99 01/29/22 11:51 99.0 F 88 18 146/73 H 97 01/29/22 07:18 99.9 F H 87 16 135/69 95 01/29/22 02:40 98.4 F 87 16 150/78 H 98 01/29/22 01:30 79 16 94 01/29/22 01:20 79 15 94 01/29/22 01:10 84 18 93 01/29/22 01:00 87 80 15 150/80 H 93 01/29/22 00:50 83 21 01/29/22 00:40 83 20 01/29/22 00:30 81 22 97 01/29/22 00:20 87 20 01/29/22 00:10 90 17 01/29/22 00:00 82 23 01/28/22 23:50 83 21 01/28/22 23:40 89 24 01/28/22 23:30 86 19 01/28/22 23:20 89 29 H 95 01/28/22 23:10 85 30 H 95 01/28/22 23:00 100.4 F H 86 38 H 96 01/28/22 22:50 90 26 H 01/28/22 22:40 88 28 H 01/28/22 22:20 95 H 25 H 94 01/28/22 22:10 101 H 26 H 94 01/28/22 22:00 111 H 19 94 01/28/22 21:50 112 H 28 H 95 01/28/22 21:45 102 H 28 H 93 01/28/22 20:01 100.2 F H 108 H 20 146/80 H 98 Pain Intensity Left Hip: Pain Intensity: 4 Transfer of Care Handoff Completed per policy Notes Mental Status: alert / awake / arousable and participated in evaluation Patient Amnestic to Procedure: Yes Nausea / Vomiting: adequately controlled Pain: adequately controlled Airway Patency, RR, SpO2: stable & adequate BP & HR: stable & adequate Hydration State: stable & adequate Anesthetic Complications: no major complications apparent and Pt Satisfied with anesthetic care
[2022-01-29] MEDS ORDERED: HYDROmorphone INJ 0.5 MG/0.5 ML SYR IV PRN (17:28)
[2022-01-29] MEDS ORDERED: NALOXONE HCL 0.4 MG/1 ML VIAL/CARP IV PRN (17:28)
[2022-01-29] MEDS ORDERED: bisacodyL 10 MG SUPP PR PRN (17:28)
[2022-01-29] MEDS ORDERED: METOCLOPRAMIDE HCL INJ 5 MG/ML 2 ML VIAL IV PRN (17:28)
[2022-01-29] MEDS ORDERED: MAGNESIUM HYDROXIDE SUSP 30 ML UDC PO PRN (17:28)
[2022-01-29] MEDS: KETOROLAC TROMETHAMINE 15 MG/ML VIAL IV SCH (19:08)
--- NOTE | 2022-01-29 19:57 | Emergency Department Note ---
Impression & Plan S/P total hip arthroplasty, Fever, Postoperative wound infection of left hip ED Provider Note CHIEF COMPLAINT: Total hip arthroplasty, fever, pain across the back and into the hip. HISTORY OF PRESENT ILLNESS: This 71-year-old male patient presents to the emergency department with complaints of fever, left hip pain and swelling at the proximal thigh. Patient states he had difficulty with this area of the incision after accidentally catching one of the edie with his finger when in the shower. He removed one of the edie during this incident and states that there was a large amount of bloody drainage that "shot out of the side." This happened a few weeks ago. He was seen by orthopedics at that time and has since improved. Patient's fever developed over the last 24 hours. He contacted the orthopedic surgeon and reported to the emergency department for evaluation. 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 She reports she took a temperature of 103 degrees while in the lobby. He was given acetaminophen at that time. REVIEW OF SYSTEMS: A review of systems was performed with positives and pertinent negatives listed in the history of present illness. 10 systems were reviewed and are otherwise negative. ALLERGIES: see below MEDICATIONS: see below PMH: see below SOCIAL HISTORY: see below DDx: Viral syndrome, infected joint replacement, UTI, pharyngitis, pneumonia, influenza, sepsis, bacteremia, as well as other pathologies. PHYSICAL EXAM: Vital signs reviewed. Noted to be slightly febrile General: Well-appearing 71 yo male, in no significant distress. HEENT: No scleral icterus, PERRLA, neck supple. Atraumatic. Cardiovascular: Regular rate and rhythm, no extra sounds. Pulmonary: Clear to auscultation bilaterally, normal work of breathing. Abdomen: Soft, nontender, nondistended, positive bowel sounds. Musculoskeletal: Atraumatic, minimal LLE edema. Left distal hip incision is edematous, indurated and erythematous. The wound is closed without any drainage. Patient does have range of motion of the left hip. Neurologic: Patient awake alert and oriented x 3, speech is clear Skin: Warm, dry, no rash EMERGENCY DEPARTMENT COURSE/MDM: Patient was evaluated and appeared to be in some discomfort. Patient's physical exam is significant for a low-grade fever after Tylenol with a slight tachycardia. Patient was hydrated with normal saline solution. Blood cultures and lactate were obtained. Patient is noted to have a WBC that is elevated, elevated sed rate and CRP. Patient was medicated with IV cefepime and vancomycin. Case was discussed with the orthopedic surgeon, Dr. Jordan who agreed to evaluate the patient for admission and further management. Patient and were made aware of the plan and agreed. MONITORING: An order for cardiac monitoring was placed and the patient is noted to be in a sinus tachycardia at 102 beats per minute. RADIOLOGY: See below EKG: Normal sinus rhythm 82 bpm. QTc is 436. Normal ST segments. No PVC, no PAC. 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 BIGEMINY NOTED ON MONITOR ONCE-- EVALUATED BY DR YARBROUGH 2015. ECHO WNL. PT ASYMPTOMATIC. Restless legs Stable Surgical History History of adenoidectomy History of cataract surgery RIGHT AND LEFT History of colonoscopy History of discectomy LUMBAR AREA (X3 SURGERIES WITHIN 21 DAYS) WITH REVISIONS DUE TO DURA BEING CUT DURING FIRST SURGERY L4-5 History of endoscopic sinus surgery History of esophagogastroduodenoscopy (EGD) History of herniorrhaphy UMBILICAL History of tonsillectomy History of tooth extraction History of total shoulder replacement RIGHT - [facility] Hx of thumb surgery right Social History Smoking Status: Former smoker Second Hand Exposure: No; Hx Alcohol Use: Yes Alcohol type: beer and wine Hx Substance Use: No Preferred Language: Irish Communication Ability: Effective Architectural Associate Required: No Beliefs That Will Affect Care: None marital status: Current Living Situation: Spouse Feels Safe at Home: Yes Assistive Devices: None Allergies Allergies Allergy/AdvReac Type Severity Reaction Status Date / Time ibuprofen AdvReac Mild NASAL Verified 01/28/22 21:51 STUFFINESS Home Meds Home Medications Medication Instructions Recorded Confirmed losartan 50 mg-hydrochlorothiazide 1 tab PO QAM 09/02/18 01/28/22 12.5 mg tablet albuterol sulfate 90 mcg/actuation 1 puff INHALATION Q6H PRN 09/03/18 01/28/22 aerosol inhaler omeprazole 20 mg capsule,delayed 20 mg PO QAM PRN 09/03/18 01/28/22 release meloxicam 15 mg tablet 15 mg PO QAM 11/17/21 01/28/22 atorvastatin 40 mg tablet 40 mg PO DAILY 01/28/22 01/28/22 Previous Rx's Medication Instructions Recorded oxycodone-acetaminophen 5 mg-325 1 tab PO Q6H PRN #30 tab 01/03/22 mg tablet (Percocet) aspirin 81 mg tablet,delayed 81 mg PO BID #84 tab 01/05/22 release (Adult Aspirin Regimen) rifampin 300 mg capsule 300 mg PO Q12H #84 cap 02/02/22 Results & Data (ED) Vital Signs Vital Signs - 24 hr 01/28/22 20:01 01/28/22 21:45 01/28/22 21:50 Temperature 37.9 C H Temperature Source Temporal Artery Scan Pulse Rate 108 H 102 H 112 H Pulse Rate from SpO2 Sensor 102 H 110 H Respiratory Rate 20 28 H 28 H Respiratory Effort / Characteristics Non-Labored Spontaneous Respiratory Depth Normal Blood Pressure 146/80 H Blood Pressure Mean 102 Pulse Oximetry 98 93 95 Oxygen Delivery Method Room Air Sepsis Recent Fever Within 48 Hours Yes Sepsis New/Unexplained Change in Mental Status No Sepsis Action Taken by Nursing No Action Required 01/28/22 22:00 01/28/22 22:10 01/28/22 22:20 Temperature Temperature Source Pulse Rate 111 H 101 H 95 H Pulse Rate from SpO2 Sensor 99 H 102 H 94 H Respiratory Rate 19 26 H 25 H Respiratory Effort / Characteristics Respiratory Depth Blood Pressure Blood Pressure Mean Pulse Oximetry 94 94 94 Oxygen Delivery Method Sepsis Recent Fever Within 48 Hours Sepsis New/Unexplained Change in Mental Status Sepsis Action Taken by Nursing 01/28/22 22:40 01/28/22 22:50 01/28/22 23:00 Temperature 38.0 C H Temperature Source Oral Pulse Rate 88 90 86 Pulse Rate from SpO2 Sensor 81 Respiratory Rate 28 H 26 H 38 H Respiratory Effort / Characteristics Non-Labored Respiratory Depth Normal Blood Pressure Blood Pressure Mean Pulse Oximetry 96 Oxygen Delivery Method Room Air Sepsis Recent Fever Within 48 Hours Sepsis New/Unexplained Change in Mental Status Sepsis Action Taken by Nursing 01/28/22 23:10 01/28/22 23:20 01/28/22 23:30 Temperature Temperature Source Pulse Rate 85 89 86 Pulse Rate from SpO2 Sensor 84 90 Respiratory Rate 30 H 29 H 19 Respiratory Effort / Characteristics Respiratory Depth Blood Pressure Blood Pressure Mean Pulse Oximetry 95 95 Oxygen Delivery Method Sepsis Recent Fever Within 48 Hours Sepsis New/Unexplained Change in Mental Status Sepsis Action Taken by Nursing Laboratory Data Result diagrams: 02/02/22 06:39 02/02/22 06:39 Lab Results 01/28/22 01/28/22 01/28/22 Range/Units 20:16 20:16 20:16 WBC 17.48 H (4.8-10.8) K/uL RBC 4.44 L (4.7-6.1) M/uL Hgb 13.5 L (14.0-18.0) g/dL Hct 40.8 L (42-52) % MCV 91.9 (80-100) fL MCH 30.4 (25-34) pg MCHC 33.1 (32-36) g/dL RDW Std Deviation 44.3 (36.4-46.3) fL RDW Coeff of Melanie 13.3 (11.5-14.5) % Plt Count 280 (130-400) K/uL MPV 11.0 H (7.4-10.4) fL Immature Gran % (Auto) 0.2 % Neut % (Auto) 76.7 % Lymph % (Auto) 8.2 % [place] % (Auto) 13.3 % Eos % (Auto) 1.4 % Baso % (Auto) 0.2 % Neut # (Auto) 13.39 H (1.4-6.5) K/uL Lymph # (Auto) 1.44 (1.2-3.4) K/uL [place] # (Auto) 2.33 H (0.11-0.59) K/uL Eos # (Auto) 0.24 (0-0.5) K/uL Baso # (Auto) 0.04 (0-0.2) K/uL Immature Gran # (Auto) 0.04 H (0.00-0.02) K/uL ESR 67 H (0-20) mm/hr Sodium 137 (136-145) mmol/L Potassium 4.0 (3.5-5.1) mmol/L Chloride 100 (98-107) mmol/L Carbon Dioxide 26 (21-32) mmol/L Anion Gap 11 (3-11) BUN 24 H (6-23) mg/dl Creatinine 1.16 (0.6-1.4) mg/dl Est Cr Clr Drug Dosing 84.7 ml/min Est GFR ( Amer) 72.5 ml/min Est GFR (Non-Af Amer) 62.6 ml/min BUN/Creatinine Ratio 20.7 H (10-20) Glucose 99 (70-99(Fasting)) mg/dl Lactate (0.4-2.0) mmol/L Calcium 9.5 (8.5-10.1) mg/dl Total Bilirubin 0.7 (0.2-1.0) mg/dl AST 15 (13-39) U/L ALT 16 (7-52) U/L Alkaline Phosphatase 148 H (34-104) U/L C-Reactive Protein (0-0.5) mg/dl Total Protein 7.7 (6.0-8.3) gm/dl Albumin 4.3 (3.4-5.0) gm/dl Globulin 3.4 (2.5-4.0) gm/dl Albumin/Globulin Ratio 1.3 (0.9-2) SARS-CoV-2 (PCR) (Negative) Influenza Type A (PCR) (Neg) Influenza Type B (PCR) (Neg) RSV (RT-PCR) (Neg) Bld Cult Staph aureus PCR (Negative) Blood Culture MRSA PCR (Negative) 01/28/22 01/28/22 01/28/22 Range/Units 22:46 22:46 23:07 WBC (4.8-10.8) K/uL RBC (4.7-6.1) M/uL Hgb (14.0-18.0) g/dL Hct (42-52) % MCV (80-100) fL MCH (25-34) pg MCHC (32-36) g/dL RDW Std Deviation (36.4-46.3) fL RDW Coeff of Melanie (11.5-14.5) % Plt Count (130-400) K/uL MPV (7.4-10.4) fL Immature Gran % (Auto) % Neut % (Auto) % Lymph % (Auto) % [place] % (Auto) % Eos % (Auto) % Baso % (Auto) % Neut # (Auto) (1.4-6.5) K/uL Lymph # (Auto) (1.2-3.4) K/uL [place] # (Auto) (0.11-0.59) K/uL Eos # (Auto) (0-0.5) K/uL Baso # (Auto) (0-0.2) K/uL Immature Gran # (Auto) (0.00-0.02) K/uL ESR (0-20) mm/hr Sodium (136-145) mmol/L Potassium (3.5-5.1) mmol/L Chloride (98-107) mmol/L Carbon Dioxide (21-32) mmol/L Anion Gap (3-11) BUN (6-23) mg/dl Creatinine (0.6-1.4) mg/dl Est Cr Clr Drug Dosing ml/min Est GFR ( Amer) ml/min Est GFR (Non-Af Amer) ml/min BUN/Creatinine Ratio (10-20) Glucose (70-99(Fasting)) mg/dl Lactate 1.2 (0.4-2.0) mmol/L Calcium (8.5-10.1) mg/dl Total Bilirubin (0.2-1.0) mg/dl AST (13-39) U/L ALT (7-52) U/L Alkaline Phosphatase (34-104) U/L C-Reactive Protein 4.72 H (0-0.5) mg/dl Total Protein (6.0-8.3) gm/dl Albumin (3.4-5.0) gm/dl Globulin (2.5-4.0) gm/dl Albumin/Globulin Ratio (0.9-2) SARS-CoV-2 (PCR) (Negative) Influenza Type A (PCR) (Neg) Influenza Type B (PCR) (Neg) RSV (RT-PCR) (Neg) Bld Cult Staph aureus PCR Positive A (Negative) Blood Culture MRSA PCR Negative (Negative) 01/28/22 Range/Units 23:30 WBC (4.8-10.8) K/uL RBC (4.7-6.1) M/uL Hgb (14.0-18.0) g/dL Hct (42-52) % MCV (80-100) fL MCH (25-34) pg MCHC (32-36) g/dL RDW Std Deviation (36.4-46.3) fL RDW Coeff of Melanie (11.5-14.5) % Plt Count (130-400) K/uL MPV (7.4-10.4) fL Immature Gran % (Auto) % Neut % (Auto) % Lymph % (Auto) % [place] % (Auto) % Eos % (Auto) % Baso % (Auto) % Neut # (Auto) (1.4-6.5) K/uL Lymph # (Auto) (1.2-3.4) K/uL [place] # (Auto) (0.11-0.59) K/uL Eos # (Auto) (0-0.5) K/uL Baso # (Auto) (0-0.2) K/uL Immature Gran # (Auto) (0.00-0.02) K/uL ESR (0-20) mm/hr Sodium (136-145) mmol/L Potassium (3.5-5.1) mmol/L Chloride (98-107) mmol/L Carbon Dioxide (21-32) mmol/L Anion Gap (3-11) BUN (6-23) mg/dl Creatinine (0.6-1.4) mg/dl Est Cr Clr Drug Dosing ml/min Est GFR ( Amer) ml/min Est GFR (Non-Af Amer) ml/min BUN/Creatinine Ratio (10-20) Glucose (70-99(Fasting)) mg/dl Lactate (0.4-2.0) mmol/L Calcium (8.5-10.1) mg/dl Total Bilirubin (0.2-1.0) mg/dl AST (13-39) U/L ALT (7-52) U/L Alkaline Phosphatase (34-104) U/L C-Reactive Protein (0-0.5) mg/dl Total Protein (6.0-8.3) gm/dl Albumin (3.4-5.0) gm/dl Globulin (2.5-4.0) gm/dl Albumin/Globulin Ratio (0.9-2) SARS-CoV-2 (PCR) NEGATIVE (Negative) Influenza Type A (PCR) Negative (Neg) Influenza Type B (PCR) Negative (Neg) RSV (RT-PCR) Negative (Neg) Bld Cult Staph aureus PCR (Negative) Blood Culture MRSA PCR (Negative) Administered Medications Discontinued Medications Acetaminophen (Acetaminophen 500 Mg Tab) 1,000 mg PO NOW STA Stop: 01/28/22 21:20 Last Admin: 01/28/22 21:23 Dose: 1,000 mg Documented by: [id number] Acetaminophen (Acetaminophen 500 Mg Tab) 1,000 mg PO TID PRN PRN Reason: Pain Stop: 03/03/22 15:34 Last Admin: 02/02/22 06:25 Dose: 1,000 mg Documented by: [id number] Admin: 02/01/22 22:32 Dose: 1,000 mg Documented by: [id number] Admin: 02/01/22 15:42 Dose: 1,000 mg Documented by: [id number] Aspirin (Aspirin 81 Mg Ectab) 81 mg PO BID BIENV[facility]IDO Stop: 02/28/22 08:59 Last Admin: 02/02/22 08:02 Dose: 81 mg Documented by: [id number] Admin: 02/01/22 20:55 Dose: 81 mg Documented by: [id number] Admin: 02/01/22 09:12 Dose: 81 mg Documented by: [id number] Admin: 01/31/22 20:17 Dose: 81 mg Documented by: [id number] Admin: 01/31/22 10:34 Dose: 81 mg Documented by: [id number] Admin: 01/30/22 20:36 Dose: 81 mg Documented by: [id number] Admin: 01/30/22 08:21 Dose: 81 mg Documented by: [id number] Admin: 01/29/22 20:58 Dose: 81 mg Documented by: [id number] Admin: 01/29/22 07:52 Dose: 81 mg Documented by: [id number] Atorvastatin Calcium (Atorvastatin 40 Mg Tab) 40 mg PO DAILY BIENVENIDO Stop: 02/28/22 08:59 Last Admin: 02/02/22 08:03 Dose: 40 mg Documented by: [id number] Admin: 02/01/22 09:12 Dose: 40 mg Documented by: [id number] Admin: 01/31/22 10:34 Dose: 40 mg Documented by: [id number] Admin: 01/30/22 08:20 Dose: 40 mg Documented by: [id number] Admin: 01/29/22 07:52 Dose: 40 mg Documented by: [id number] Docusate Sodium (Docusate Sodium 100 Mg Cap) 100 mg PO BID BIENVENIDO Stop: 02/28/22 20:59 Last Admin: 02/02/22 08:03 Dose: 100 mg Documented by: [id number] Admin: 02/01/22 19:38 Dose: Not Given Documented by: [id number] Admin: 02/01/22 09:12 Dose: 100 mg Documented by: [id number] Admin: 01/31/22 20:17 Dose: 100 mg Documented by: [id number] Admin: 01/31/22 10:33 Dose: 100 mg Documented by: [id number] Admin: 01/30/22 20:36 Dose: 100 mg Documented by: [id number] Admin: 01/30/22 08:25 Dose: 100 mg Documented by: [id number] Admin: 01/29/22 20:59 Dose: 100 mg Documented by: [id number] Fentanyl Citrate (Fentanyl Citrate 100 Mcg/2 Ml Vial) Confirm Administered Dose 100 mcg .ROUTE .STK-MED ONE Stop: 01/29/22 16:18 Last Admin: 01/29/22 17:21 Dose: Not Given Documented by: [id number] Fentanyl Citrate (Fentanyl Citrate 100 Mcg/2 Ml Vial) 25 mcg IV Q5M PRN PRN Reason: PACU Use Only-Pain Stop: 01/30/22 00:24 Last Admin: 01/29/22 16:34 Dose: 25 mcg Documented by: [id number] Admin: 01/29/22 16:29 Dose: 25 mcg Documented by: [id number] Admin: 01/29/22 16:24 Dose: 25 mcg Documented by: [id number] Admin: 01/29/22 16:19 Dose: 25 mcg Documented by: [id number] HCTZ/Losartan Potassium (Losartan/Hctz 50/12.5mg Tab) 1 tab PO QAM [facility]ENIDO Stop: 02/28/22 08:59 Last Admin: 02/02/22 11:10 Dose: 1 tab Documented by: [id number] Admin: 01/29/22 07:52 Dose: 1 tab Documented by: [id number] Hydromorphone HCl (Hydromorphone Inj 0.5 Mg/0.5 Ml Syr) 0.5 mg IV Q1H PRN PRN Reason: Pain Stop: 02/12/22 00:44 Last Admin: 01/29/22 03:38 Dose: 0.5 mg Documented by: [id number] Admin: 01/29/22 01:13 Dose: 0.5 mg Documented by: [id number] Sodium Chloride (Nss 1000ml) 500 mls @ 999 mls/hr IV .Q31M ONE Stop: 01/28/22 22:56 Last Infusion: 01/29/22 04:20 Dose: 0 mls/hr Documented by: [id number] Admin: 01/28/22 22:54 Dose: 999 mls/hr Documented by: [id number] Sodium Chloride (Nss 1000ml) 1,000 mls @ 150 mls/hr IV .Q6H40M [facility]IDO Stop: 02/27/22 22:29 Last Infusion: 01/29/22 04:20 Dose: 0 mls/hr Documented by: [id number] Infusion: 01/29/22 04:20 Dose: 0 mls/hr Documented by: [id number] Admin: 01/29/22 00:12 Dose: 150 mls/hr Documented by: [id number] Vancomycin HCl 2,500 mg/ (Sodium Chloride) 550 mls @ 200 mls/hr IV NOW ONE Stop: 01/29/22 01:15 Last Infusion: 01/29/22 04:19 Dose: 0 mls/hr Documented by: [id number] Admin: 01/28/22 23:45 Dose: 200 mls/hr Documented by: [id number] Cefepime HCl (Maxipime) 2,000 mg in 20 mls @ 5 mls/min IV NOW STA; Protocol Stop: 01/28/22 22:34 Last Admin: 01/28/22 22:55 Dose: 5 mls/min Documented by: [id number] Sodium Chloride (Nss 1000ml) 1,000 mls @ 80 mls/hr IV .[id number] [facility] Stop: 02/28/22 02:51 Last Admin: 01/30/22 01:56 Dose: Not Given Documented by: [id number] Infusion: 01/29/22 22:05 Dose: 0 mls/hr Documented by: [id number] Infusion: 01/29/22 11:00 Dose: 0 mls/hr Documented by: [id number] Admin: 01/29/22 05:33 Dose: 80 mls/hr Documented by: [id number] Vancomycin HCl 1,250 mg/ (Sodium Chloride) 275 mls @ 200 mls/hr IV Q12H [facility] Stop: 02/05/22 07:59 Last Infusion: 01/30/22 09:51 Dose: 0 mls/hr Documented by: [id number] Admin: 01/30/22 08:19 Dose: 200 mls/hr Documented by: [id number] Infusion: 01/30/22 00:10 Dose: 0 mls/hr Documented by: [id number] Admin: 01/29/22 20:52 Dose: 200 mls/hr Documented by: [id number] Infusion: 01/29/22 09:25 Dose: 0 mls/hr Documented by: [id number] Admin: 01/29/22 07:49 Dose: 200 mls/hr Documented by: [id number] Sodium Chloride (Nss 1000ml) 1,000 mls @ 999 mls/hr IV .Q1H1M ONE Stop: 01/29/22 21:16 Last Infusion: 01/29/22 22:04 Dose: 0 mls/hr Documented by: [id number] Admin: 01/29/22 20:20 Dose: 999 mls/hr Documented by: [id number] Sodium Chloride (Nss 1000ml) 1,000 mls @ 125 mls/hr IV .Q8H [facility] Stop: 02/28/22 20:29 Last Admin: 02/01/22 18:20 Dose: Not Given Documented by: [id number] Infusion: 02/01/22 10:11 Dose: 0 mls/hr Documented by: [id number] Infusion: 02/01/22 10:11 Dose: 0 mls/hr Documented by: [id number] Admin: 02/01/22 04:18 Dose: 125 mls/hr Documented by: [id number] Infusion: 02/01/22 04:16 Dose: 125 mls/hr Documented by: [id number] Admin: 01/31/22 20:16 Dose: 125 mls/hr Documented by: [id number] Infusion: 01/31/22 20:16 Dose: 125 mls/hr Documented by: [id number] Admin: 01/31/22 12:16 Dose: 125 mls/hr Documented by: [id number] Infusion: 01/31/22 12:16 Dose: 125 mls/hr Documented by: [id number] Admin: 01/31/22 05:53 Dose: 125 mls/hr Documented by: [id number] Infusion: 01/31/22 05:53 Dose: 125 mls/hr Documented by: [id number] Admin: 01/30/22 23:39 Dose: 125 mls/hr Documented by: [id number] Infusion: 01/30/22 21:20 Dose: 125 mls/hr Documented by: [id number] Admin: 01/30/22 13:20 Dose: 125 mls/hr Documented by: [id number] Infusion: 01/30/22 13:20 Dose: 125 mls/hr Documented by: [id number] Admin: 01/30/22 05:24 Dose: 125 mls/hr Documented by: [id number] Infusion: 01/30/22 05:24 Dose: 125 mls/hr Documented by: [id number] Admin: 01/29/22 22:04 Dose: 125 mls/hr Documented by: [id number] Cefazolin Sodium (Ancef 2000mg) 2,000 mg in 15 mls @ 3.75 mls/min IV Q8 [facility] Stop: 03/13/22 19:59 Last Admin: 02/02/22 14:14 Dose: 3.75 mls/min Documented by: [id number] Admin: 02/02/22 06:25 Dose: 3.75 mls/min Documented by: [id number] Admin: 02/01/22 22:33 Dose: 3.75 mls/min Documented by: [id number] Admin: 02/01/22 14:54 Dose: 3.75 mls/min Documented by: [id number] Admin: 02/01/22 06:07 Dose: 3.75 mls/min Documented by: [id number] Admin: 01/31/22 23:00 Dose: 3.75 mls/min Documented by: [id number] Admin: 01/31/22 15:58 Dose: 3.75 mls/min Documented by: [id number] Admin: 01/31/22 05:45 Dose: 3.75 mls/min Documented by: [id number] Admin: 01/30/22 20:41 Dose: 3.75 mls/min Documented by: [id number] Ketorolac Tromethamine (Ketorolac Tromethamine 15 Mg/Ml Vial) 15 mg IV Q6H [facility] Stop: 01/31/22 12:01 Last Admin: 01/31/22 12:16 Dose: 15 mg Documented by: [id number] Admin: 01/31/22 05:44 Dose: 15 mg Documented by: [id number] Admin: 01/30/22 23:42 Dose: 15 mg Documented by: [id number] Admin: 01/30/22 18:08 Dose: 15 mg Documented by: [id number] Admin: 01/30/22 13:20 Dose: 15 mg Documented by: [id number] Admin: 01/30/22 05:27 Dose: 15 mg Documented by: [id number] Admin: 01/30/22 00:38 Dose: 15 mg Documented by: [id number] Admin: 01/29/22 19:08 Dose: Not Given Documented by: [id number] Multivitamins (Multivitamin Tab) 1 tab PO QAM [facility]O Stop: 03/01/22 08:59 Last Admin: 02/02/22 08:02 Dose: 1 tab Documented by: [id number] Admin: 02/01/22 09:12 Dose: 1 tab Documented by: [id number] Admin: 01/31/22 10:34 Dose: 1 tab Documented by: [id number] Admin: 01/30/22 08:20 Dose: 1 tab Documented by: [id number] Oxycodone/Acetaminophen (Oxycodone/Acetaminophen 5mg/325mg Tab) 1 tab PO Q6H PRN PRN Reason: pain Stop: 02/12/22 02:51 Last Admin: 01/31/22 20:14 Dose: 1 tab Documented by: [id number] Admin: 01/30/22 20:56 Dose: 1 tab Documented by: [id number] Admin: 01/29/22 21:05 Dose: 1 tab Documented by: [id number] Admin: 01/29/22 07:51 Dose: 1 tab Documented by: [id number] Sennosides (Senna 8.6 Mg Tab) 17.2 mg PO HS BI[facility]O Stop: 02/28/22 20:59 Last Admin: 02/01/22 19:38 Dose: Not Given Documented by: [id number] Admin: 01/31/22 20:19 Dose: 17.2 mg Documented by: [id number] Admin: 01/30/22 20:36 Dose: 17.2 mg Documented by: [id number] Admin: 01/29/22 20:59 Dose: 17.2 mg Documented by: [id number] Sodium Hypochlorite (Dakin's Soln 0.25% Half Strength 473ml Btl) 1 appln EXT ONE ONE Stop: 01/29/22 15:16 Last Admin: 01/29/22 15:30 Dose: 1 appln Documented by: [id number] Imaging Data Radiologist's Impression: Hip X-Ray 01/28/22 22:25 XR hip LT min 2V CLINICAL HISTORY: L hip arthoplasty, fever COMPARISON STUDY: Left hip 01/05/2022. FINDINGS: There is a left total hip arthroplasty. The hardware is intact. No fracture or dislocation. No abnormal periprosthetic lucency. Soft tissues are unremarkable. IMPRESSION: Status post left total hip arthroplasty. No significant abnormality identified within the left hip. ACT 112: Negative or not required by law. Electronically signed by: Aníbal Soares M.D. 01/29/2022 7:55 AM Chest X-Ray 01/28/22 23:23 XR chest 1V portable HISTORY: fever COMPARISON: Chest 11/22/2021. FINDINGS: The lungs are clear. Cardiac silhouette is normal in size. No pleural effusions. No pneumothorax. There is a right shoulder prosthesis. IMPRESSION: No acute process. ACT 112: Negative or not required by law. Electronically signed by: Aníbal Soares M.D. 01/29/2022 7:57 AM Blood Pressure Blood Pressure Findings: Elevated blood pressure Blood Pressure Disposition: further management by hospitalist Discharge Plan Visit Data Chief Complaint: Illness Stated Complaint: HIP REPLACEMENT A FEW WEEKS AGO, DR SHANNON SENT ED Provider: Flor Arreguin Discharge Problem: S/P total hip arthroplasty, Fever, Postoperative wound infection of left hip Patient Disposition: Admitted As Inpatient Discharge Instructions Interventions: ED Discharge Assessment Last Done: 01/29/22 02:24 Discharge Problem: S/P total hip arthroplasty Qualifiers: Laterality: left Qualified Code(s): Z96.642 - Presence of left artificial hip joint Fever Qualifiers: Fever type: unspecified Qualified Code(s): R50.9 - Fever, unspecified
[2022-01-29] MEDS ORDERED: SODIUM CHLORIDE 0.9% 1000ML 1,000 ML IV ONE (20:16)
[2022-01-29] MEDS: SENNA 8.6 MG TAB PO SCH (20:59)
[2022-01-29] MEDS: DOCUSATE SODIUM 100 MG CAP PO SCH (20:59)
[2022-01-30] MEDS: KETOROLAC TROMETHAMINE 15 MG/ML VIAL IV SCH ×5 (00:38→23:42)
[2022-01-30] MEDS: SODIUM CHLORIDE 0.9% 1000ML 1,000 ML IV SCH ×4 (01:56→23:39)
--- NOTE | 2022-01-30 02:10 | Consultation Report ---
DATE OF CONSULTATION: 01/29/2022. 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 HISTORY OF PRESENT ILLNESS: This is a 71-year-old male with past medical history significant for hyperlipidemia, asthma mildly persistent, hypertension, frequent PVCs, restless legs syndrome, generalized osteoarthritis, history of pseudomeningocele, who recently about 3 weeks ago had left hip replacement, was having fevers and chills, and also his sed rate and CRP are elevated. 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 Currently, resting comfortably. Denies any chest pain, no shortness of breath, no cough. Has some mild headache. No blurred visions, no nausea, no abdominal pain. Hemodynamically stable. ALLERGIES: IBUPROFEN. PAST MEDICAL HISTORY: As mentioned above. PAST SURGICAL HISTORY: Colonoscopies, decompressed lumbar spinal cord, exploration of maxillary sinus, microdiscectomy, right shoulder surgery, tonsillectomy, umbilical hernia repair. MEDICATIONS: The patient is on albuterol 1 puff inhalation q. 6 hours p.r.n., aspirin 81 mg p.o. b.i.d., atorvastatin 40 mg p.o. daily, losartan/hydrochlorothiazide 100/12.5 mg p.o. daily, meloxicam 15 mg p.o. a.m., omeprazole 20 mg p.o. a.m. p.r.n., oxycodone/acetaminophen 5/325 mg daily q. 6 hours p.r.n. FAMILY HISTORY: Significant for mother has heart disorder. SOCIAL HISTORY: , former smoker, quit in 1974, smoked 1 pack a day for 5 years. Alcohol, occasional beer. No drug use. REVIEW OF SYSTEMS: As per HPI. Rest of the review of systems is negative. PHYSICAL EXAMINATION: GENERAL: The patient is of moderate build, not in acute distress. VITAL SIGNS: Temperature 37.1, pulse 82, respiratory rate 18, blood pressure 120/72, oxygen 98% on room air. HEENT: Pupils equal, round and reactive to light. Atraumatic. NECK: No JVD. CARDIOVASCULAR: S1 and S2 heard. Regular rate and rhythm. No murmur, no gallop. RESPIRATORY SYSTEM: Normal AP diameter. No accessory muscle use. No wheezing, no crackles. ABDOMEN: Soft, bowel sounds present, nontender, no distention. CENTRAL NERVOUS SYSTEM: Alert and oriented. Speech is clear. No facial droop. Insight is good. Obeys simple commands. Moves extremities. EXTREMITIES: Status post left hip I and D, dressing and drain intact. No edema, no erythema seen. LABORATORY DATA: Creatinine 0.8. IMAGING DATA: Chest x-ray, no acute process. ASSESSMENT AND PLAN: This is a 71-year-old male status post left hip periprosthetic joint infection, status post I and D. On iv vancomycin. ID consulted.Management as per orthopedics. 1. Hypertension: Continue his home medication of losartan, hydrochlorothiazide. Will monitor the blood pressure. 2. Hyperlipidemia: Continue statin. 3. Asthma: Currently stable on albuterol p.r.n. 4. Deep venous thrombosis prophylaxis and disposition as per orthopedics. Job ID: [id number] MTDD
--- NOTE | 2022-01-30 06:39 | Orthopedic Progress Note ---
Date of Service January 30, 2022 Assessment & Plan (1) Prosthetic joint infection of left hip: Overall is doing about as well as expected. He is on vancomycin 1250 mg every 12 hours. This is being managed with pharmacy. He does have a positive blood culture with bacteremia and the hospitalist has been consulted for that. He had 175 cc of output into his Hemovac drain. He can be up and weightbearing as tolerated. He is on aspirin for DVT prophylaxis. He will be seen by physical therapy as well. We are currently awaiting hip cultures decide long- term antibiotic regimen. Infectious disease has been consulted. He will likely require 6 weeks of IV antibiotics, followed by oral antibiotics. I would also like to start rifampin per their recommendations. We will continue to follow him closely. Alba Verduzco was seen and examined at bedside this morning. Overall is doing well. He says a lot of the preoperative pain he was having is gone around his hip. He is a little bit of surgical pain. He still has some back pain. He was resting comfortably on his side when I entered the room. He has no new complaints. Review of Systems All systems reviewed & are unremarkable except as noted in HPI & below. Physical Exam On physical examination of the left hip, the dressing is clean and dry and the Hemovac drain is to suction. His leg lengths are equal. Results & Data Results & Data Laboratory Results . Diagnostic Findings . PG Care Time/CCT Total # of Minutes Spent Total Time Spent with Patient: Total time spent is greater than 50% in coordination of care (as documented) at patient's floor/unit and/or counseling patient: Coding Level of Care Code 24357 Post Operative Follow-Up Diagnoses Prosthetic joint infection of left hip T84.52XA
[2022-01-30 08:09] LABS: Hematocrit (blood only) 25.5 % (42-52); Hemoglobin 8.4 g/dL (14.0-18.0); Mean Corpuscular Hemoglobin 31.1 pg (25-34); Mean Corpuscular Hgb Conc 32.9 g/dL (32-36); Mean Corpuscular Volume 94.4 fL (80-100); Mean Platelet Volume 10.8 fL (7.4-10.4); Platelet Count 196 K/uL (130-400); RDW Coefficient of Variation 13.5 % (11.5-14.5); RDW Standard Deviation 46.4 fL (36.4-46.3); White Blood Count 12.69 K/uL (4.8-10.8)
[2022-01-30 08:11] LABS: Basophils # (auto) 0.02 K/uL (0-0.2); Basophils % (auto) 0.2 %; Eosinophils # (auto) 0.27 K/uL (0-0.5); Eosinophils % (auto) 2.1 %; Immature Granulocytes # (auto) 0.03 K/uL (0.00-0.02); Immature Granulocytes % (auto) 0.2 %; Lymphocytes # (auto) 1.11 K/uL (1.2-3.4); Lymphocytes % (auto) 8.7 %; Monocytes # (auto) 1.95 K/uL (0.11-0.59); Monocytes % (auto) 15.4 %; Neutrophils # (auto) 9.31 K/uL (1.4-6.5); Neutrophils % (auto) 73.4 %
[2022-01-30] MEDS: VANCOMYCIN HCL 1,250 MG in SODIUM CHLORIDE 0.9% 250 ML IV SCH (08:19)
[2022-01-30] MEDS: MULTIVITAMIN TAB PO SCH (08:20)
[2022-01-30] MEDS: ATORVASTATIN 40 MG TAB PO SCH (08:20)
[2022-01-30] MEDS: ASPIRIN 81 MG ECTAB PO SCH ×2 (08:21→20:36)
[2022-01-30] MEDS: DOCUSATE SODIUM 100 MG CAP PO SCH ×2 (08:25→20:36)
[2022-01-30 08:37] LABS: BUN Creatinine Ratio 21.2 (10-20); Calcium 7.6 mg/dl (8.5-10.1); Est GFR (African American) 87.8 ml/min; Est GFR (Non-African American) 75.8 ml/min; Potassium 3.6 mmol/L (3.5-5.1)
--- NOTE | 2022-01-30 12:11 | Hospitalist Progress Note ---
Date of Service January 30, 2022 Assessment & Plan (1) Prosthetic joint infection of left hip: (2) Staphylococcus aureus bacteremia: Plan: Periprosthetic infection of left hip s/p I&D yesterday- OR clx with Staph aureus- follow final clx results. further management per ortho, on hemovacc suction, on iv vanc- 6 weeks per ortho followed by chronic ABx suppreession. ID consulted by ortho. Staph aureus bacteremia- Blood clx 01/28 positive, will repeat blood clx daily unt il clearance of bacteremia. On IV Vanc pending final clx results. Echo pending. ID consulted. Acute blood loss anemia- Hb 8.4 today and 13.5 on 01/28. Baseline of 14. EBL 200 cc, hemovac drainage 200 cc. Likely related to blood loss during OR, currently asymptomatic. Check iron studies. Supplement iron if deficient once bacteremia under control. No other overt bleed. Recheck in am. Essential HTN- hold home losartan HCTZ as BP low. Resume as indicated H/o Asthma- stable, no exacerbation. On albuterol prn DVT ppx- on aspirin per primary team- recommend sc heparin or lovenox when stable- will defer to ortho Dispo- per primary team, Pending clearance of bacteremia. Will need IV ABx at discharge pending final clx results. ID eval pending. Admission and Anticipated Discharge Date Admission Date: January 28, 2022 Subjective No new issues, pain is improved after the procedure yesterday. Denies any fever, chills, chest pain, shortness of breath, nausea, vomiting. Discussed the plan in regards to his bacteremia and periprosthetic infection. Physical Exam Physical Exam: General: Sitting in chair, not in distress, on room air HEENT: EOMI, LIZETTE, MMM Chest: Clear breath sounds bilaterally, no wheezes or crackles CVS: Regular rate and rhythm, normal heart sounds, no murmur Abdomen: Soft, non tender, not distended, normal bowel sounds Neuro: Awake, alert, oriented, conversing well, non focal Extremities: Left hip with dressing and hemovac suction in place Results & Data Results & Data ([facility]) Vital Signs (Past 12 Hours) Vital Signs Temp Pulse Resp BP BP Pulse Ox 01/30/22 11:21 36.8 C 75 16 97/53 L 95 01/30/22 07:42 37.0 C 72 16 99/54 L 97 01/30/22 05:19 37 C 85 16 115/64 97 01/30/22 00:48 36.9 C 84 18 119/63 96 Laboratory Results Short CBC 01/30/22 Range/Units 06:27 WBC 12.69 H (4.8-10.8) K/uL Hgb 8.4 L D (14.0-18.0) g/dL Hct 25.5 L (42-52) % Plt Count 196 (130-400) K/uL BMP 01/30/22 06:27 Sodium 133 L Potassium 3.6 Chloride 103 Carbon Dioxide 26 BUN 21 Creatinine 0.99 Glucose 118 H Calcium 7.6 L Medications Administered Current Inpatient Medications Albuterol (Albuterol Hfa 8 Gm Inhaler) 1 puffs INH Q6H PRN PRN Reason: Wheezing Stop: 02/28/22 02:51 Aspirin (Aspirin 81 Mg Ectab) 81 mg PO BID [facility] Stop: 02/28/22 08:59 Last Admin: 01/30/22 08:21 Dose: 81 mg Documented by: Atorvastatin Calcium (Atorvastatin 40 Mg Tab) 40 mg PO DAILY [facility] Stop: 02/28/22 08:59 Last Admin: 01/30/22 08:20 Dose: 40 mg Documented by: Bisacodyl (Bisacodyl 10 Mg Supp) 10 mg MT DAILY PRN PRN Reason: Constipation Stop: 02/28/22 17:27 Docusate Sodium (Docusate Sodium 100 Mg Cap) 100 mg PO BID [facility] Stop: 02/28/22 20:59 Last Admin: 01/30/22 08:25 Dose: 100 mg Documented by: HCTZ/Losartan Potassium (Losartan/Hctz 50/12.5mg Tab) 1 tab PO QAM [facility] Stop: 02/28/22 08:59 Last Admin: 01/29/22 07:52 Dose: 1 tab Documented by: Hydromorphone HCl (Hydromorphone Inj 0.5 Mg/0.5 Ml Syr) 0.5 mg IV Q4H PRN PRN Reason: Pain or Pre PT Stop: 02/12/22 17:27 Vancomycin HCl 1,250 mg/ (Sodium Chloride) 275 mls @ 200 mls/hr IV Q12H [facility] Stop: 02/05/22 07:59 Last Infusion: 01/30/22 09:51 Dose: Infused Documented by: Sodium Chloride (Nss 1000ml) 1,000 mls @ 125 mls/hr IV .Q8H [facility] Stop: 02/28/22 20:29 Last Admin: 01/30/22 05:24 Dose: 125 mls/hr Documented by: Ketorolac Tromethamine (Ketorolac Tromethamine 15 Mg/Ml Vial) 15 mg IV Q6H [facility] Stop: 01/31/22 12:01 Last Admin: 01/30/22 05:27 Dose: 15 mg Documented by: Magnesium Hydroxide (Magnesium Hydroxide Susp 30 Ml Udc) 30 ml PO Q6H PRN PRN Reason: Constipation Stop: 02/28/22 17:27 Metoclopramide HCl (Metoclopramide Hcl Inj 5 Mg/Ml 2 Ml Vial) 10 mg IV Q6H PRN PRN Reason: Nausea And Vomiting Stop: 02/28/22 17:27 Miscellaneous Information (Vancomycin Consult Active) 1 ea N/A UD PRN PRN Reason: Consult Stop: 02/27/22 22:30 Multivitamins (Multivitamin Tab) 1 tab PO QAM [facility] Stop: 03/01/22 08:59 Last Admin: 01/30/22 08:20 Dose: 1 tab Documented by: Naloxone HCl (Naloxone Hcl 0.4 Mg/1 Ml Vial/Carp) 0.1 mg IV Q5M PRN PRN Reason: Oversedation/Resp Depression Stop: 02/28/22 17:27 Ondansetron HCl (Ondansetron Inj 2 Mg/Ml 2 Ml Vial) 4 mg IV Q6H PRN PRN Reason: Nausea/Vomiting Stop: 02/28/22 02:51 Oxycodone/Acetaminophen (Oxycodone/Acetaminophen 5mg/325mg Tab) 1 tab PO Q6H PRN PRN Reason: pain Stop: 02/12/22 02:51 Last Admin: 01/29/22 21:05 Dose: 1 tab Documented by: Pantoprazole Sodium (Pantoprazole 40 Mg Tab) 40 mg PO QAM PRN PRN Reason: Heartburn Stop: 02/28/22 02:59 Sennosides (Senna 8.6 Mg Tab) 17.2 mg PO HS [facility] Stop: 02/28/22 20:59 Last Admin: 01/29/22 20:59 Dose: 17.2 mg Documented by:
[2022-01-30 13:27] LABS: Ferritin 388.4 ng/ml (8-388)
[2022-01-30] MEDS: SENNA 8.6 MG TAB PO SCH (20:36)
[2022-01-30] MEDS: ceFAZolin 2000MG 2,000 MG/15 ML SYR IV SCH (20:41)
[2022-01-30] MEDS: oxyCODONE/ACETAMINOPHEN 5mg/325mg TAB PO PRN (20:56)
[2022-01-31] MEDS: KETOROLAC TROMETHAMINE 15 MG/ML VIAL IV SCH ×2 (05:44→12:16)
[2022-01-31] MEDS: ceFAZolin 2000MG 2,000 MG/15 ML SYR IV SCH ×3 (05:45→23:00)
[2022-01-31] MEDS: SODIUM CHLORIDE 0.9% 1000ML 1,000 ML IV SCH ×3 (05:53→20:16)
--- NOTE | 2022-01-31 06:49 | Orthopedic Progress Note ---
Date of Service January 31, 2022 Assessment & Plan (1) Prosthetic joint infection of left hip: Preliminary hip cultures have grown out a staph species. He is currently on IV Ancef. His H&H was a little low yesterday but he was asymptomatic. We will await H&H results today. We are also awaiting infectious disease consultation. He will likely require a PICC line and 6 weeks of IV antibiotics. I would also like to start rifampin per infectious disease recommendations. He is currently on aspirin for DVT prophylaxis. He can be up and weightbearing as tolerated. We will keep him on the ice and the Ancef until we get final cultures. Alba Verduzco was seen and examined at bedside this morning. Overall he is doing fairly well. He is not any much pain in his left hip. He has been up and ambulating. He has no complaints. Review of Systems All systems reviewed & are unremarkable except as noted in HPI & below. Physical Exam On physical examination of the left hip, there Hemovac drains were pulled. His dressing is clean and dry. His leg lengths are equal. Results & Data Results & Data Laboratory Results . Diagnostic Findings . PG Care Time/CCT Total # of Minutes Spent Total Time Spent with Patient: Total time spent is greater than 50% in coordination of care (as documented) at patient's floor/unit and/or counseling patient: Coding Level of Care Code 87091 Post Operative Follow-Up Diagnoses Prosthetic joint infection of left hip T84.52XA
[2022-01-31 08:13] LABS: Basophils # (auto) 0.02 K/uL (0-0.2); Basophils % (auto) 0.2 %; Eosinophils # (auto) 0.53 K/uL (0-0.5); Eosinophils % (auto) 5.7 %; Hematocrit (blood only) 23.6 % (42-52); Hemoglobin 7.9 g/dL (14.0-18.0); Immature Granulocytes # (auto) 0.01 K/uL (0.00-0.02); Immature Granulocytes % (auto) 0.1 %; Lymphocytes # (auto) 1.06 K/uL (1.2-3.4); Lymphocytes % (auto) 11.4 %; Mean Corpuscular Hemoglobin 31.1 pg (25-34); Mean Corpuscular Hgb Conc 33.5 g/dL (32-36); Mean Corpuscular Volume 92.9 fL (80-100); Mean Platelet Volume 10.3 fL (7.4-10.4); Monocytes # (auto) 0.92 K/uL (0.11-0.59); Monocytes % (auto) 9.9 %; Neutrophils # (auto) 6.77 K/uL (1.4-6.5); Neutrophils % (auto) 72.7 %; Platelet Count 190 K/uL (130-400); RDW Coefficient of Variation 13.2 % (11.5-14.5); RDW Standard Deviation 45.1 fL (36.4-46.3); Red Blood Count 2.54 M/uL (4.7-6.1); White Blood Count 9.31 K/uL (4.8-10.8)
[2022-01-31 08:34] LABS: BUN Creatinine Ratio 19.3 (10-20); Calcium 7.9 mg/dl (8.5-10.1); Creatinine Clr Calc Pharmacy 121.7 ml/min; Est GFR (African American) 101.9 ml/min; Est GFR (Non-African American) 87.9 ml/min; Potassium 3.8 mmol/L (3.5-5.1)
[2022-01-31 08:39] LABS: RBC Morphology Unremarkable
[2022-01-31] MEDS: DOCUSATE SODIUM 100 MG CAP PO SCH ×2 (10:33→20:17)
[2022-01-31] MEDS: MULTIVITAMIN TAB PO SCH (10:34)
[2022-01-31] MEDS: ATORVASTATIN 40 MG TAB PO SCH (10:34)
[2022-01-31] MEDS: ASPIRIN 81 MG ECTAB PO SCH ×2 (10:34→20:17)
--- NOTE | 2022-01-31 13:09 | Hospitalist Progress Note ---
Date of Service January 31, 2022 Assessment & Plan (1) Prosthetic joint infection of left hip: (2) Staphylococcus aureus bacteremia: Plan: Periprosthetic infection of left hip s/p I&D 01/29/22- Cultures Staph aureus- MSSA . , on hemovacc suction, on iv Ancef- 6 weeks per ortho followed by chronic ABx suppreession. Awaiting ID input. Staph aureus bacteremia- Blood clx 01/28 positive- MSSA , TO repeat blood clx daily until clearance of bacteremia. On IV ANcef. TTE no obvious vegetations. ID consulted. Acute blood loss anemia- Hb 7.9 today. Baseline of 14. EBL 200 cc, To Supplement iron if deficient once bacteremia under control. Will follow labs Essential HTN- holding home losartan HCTZ as BP low. Will resume when BP gets elevated. H/o Asthma- stable, no exacerbation. On albuterol prn DVT ppx- on aspirin per primary team- recommend sc heparin or lovenox when stable- will defer to ortho. Dispo- per primary team, Pending clearance of bacteremia. Will need IV ABx at discharge pending final clx results. ID eval pending. Admission and Anticipated Discharge Date Admission Date: January 28, 2022 Subjective Resting comfortably ambulated some afebrile denies any pain no chest pain or sob no nausea Review of Systems Review of Systems: All systems reviewed & are unremarkable except as noted in Subjective Physical Exam Neck: trachea midline, no thyromegaly Respiratory: normal respiratory effort, lungs clear to auscultation Cardiovascular: RRR, no murmur, no edema Gastrointestinal (Abdomen): normal bowel sounds, soft, nontender, no hepatosplenomegaly Musculoskeletal: Left hip dressing intact. No obvious drainage seen Neurologic: PERRL, EOMI, accommodation nl, no face palsy, no dysarthria Psychiatric: A+Ox3, euthymic affect Results & Data Results & Data ([facility]) Vital Signs (Past 12 Hours) Vital Signs Temp Pulse Resp BP BP Pulse Ox 01/31/22 07:18 37.0 C 73 16 124/67 124/67 94
--- NOTE | 2022-01-31 13:36 | Electrocardiogram Report ---
Test Reason : Blood Pressure : / mmHG Vent. Rate : 082 BPM Atrial Rate : 082 BPM P-R Int : 164 ms QRS Dur : 104 ms QT Int : 374 ms P-R-T Axes : -04 -16 036 degrees QTc Int : 436 ms Normal sinus rhythm Normal ECG When compared with ECG of 22-NOV-2021 12:24, No significant change was found Confirmed by Casper Issa ([id number]) on 01/31/2022 1:35:58 PM Referred By: Lul Jordan Confirmed By:Casper Issa
[2022-01-31] MEDS: oxyCODONE/ACETAMINOPHEN 5mg/325mg TAB PO PRN (20:14)
[2022-01-31] MEDS: SENNA 8.6 MG TAB PO SCH (20:19)
[2022-02-01] MEDS: SODIUM CHLORIDE 0.9% 1000ML 1,000 ML IV SCH ×2 (04:18→18:20)
[2022-02-01] MEDS: ceFAZolin 2000MG 2,000 MG/15 ML SYR IV SCH ×3 (06:07→22:33)
[2022-02-01 06:46] LABS: Basophils # (auto) 0.03 K/uL (0-0.2); Basophils % (auto) 0.3 %; Eosinophils % (auto) 8.9 %; Hematocrit (blood only) 25.8 % (42-52); Hemoglobin 8.5 g/dL (14.0-18.0); Immature Granulocytes # (auto) 0.01 K/uL (0.00-0.02); Immature Granulocytes % (auto) 0.1 %; Lymphocytes # (auto) 1.41 K/uL (1.2-3.4); Lymphocytes % (auto) 15.6 %; Mean Corpuscular Hemoglobin 30.5 pg (25-34); Mean Corpuscular Hgb Conc 32.9 g/dL (32-36); Mean Corpuscular Volume 92.5 fL (80-100); Mean Platelet Volume 10.5 fL (7.4-10.4); Monocytes # (auto) 0.88 K/uL (0.11-0.59); Monocytes % (auto) 9.8 %; Neutrophils # (auto) 5.89 K/uL (1.4-6.5); Neutrophils % (auto) 65.3 %; Platelet Count 250 K/uL (130-400); RDW Coefficient of Variation 13.2 % (11.5-14.5); RDW Standard Deviation 44.9 fL (36.4-46.3); Red Blood Count 2.79 M/uL (4.7-6.1); White Blood Count 9.02 K/uL (4.8-10.8)
[2022-02-01 07:09] LABS: Creatinine Clr Calc Pharmacy 109.8 ml/min; Est GFR (Non-African American) 82.8 ml/min
--- NOTE | 2022-02-01 07:20 | Orthopedic Progress Note ---
Date of Service February 01, 2022 Assessment & Plan (1) Prosthetic joint infection of left hip: With regards to his hip he is doing fairly well. He will continue the IV Ancef. We are awaiting for final blood cultures to place a PICC line. He will likely be on the Ancef for 6 weeks and then placed on oral antibiotics. We will add rifampin once the blood cultures are negative. I am also going to give him 1 unit of packed red blood cells today. He is starting to become a little bit more symptomatic with his anemia. His H&H was a little bit better today but I think a unit of blood can make him feel a lot better. He will likely remain in the hospital today and plan for discharge tomorrow. Alba Verduzco was seen and examined at bedside this morning. Overall is doing fairly well. Is not having much pain in the right hip. His back pain is also a little bit improved. He has been ambulating some but he says he feels sluggish. He said he started to feel little bit washed out. He states he feels like he is becoming a little bit more symptomatic with his anemia. Review of Systems All systems reviewed & are unremarkable except as noted in HPI & below. Physical Exam On physical examination of the left hip, the dressing is clean and dry. His ligaments are equal. There is no redness in the area. Results & Data Results & Data Laboratory Results . Diagnostic Findings . PG Care Time/CCT Total # of Minutes Spent Total Time Spent with Patient: Total time spent is greater than 50% in coordination of care (as documented) at patient's floor/unit and/or counseling patient: Coding Level of Care Code 83605 Post Operative Follow-Up Diagnoses Prosthetic joint infection of left hip T84.52XA
[2022-02-01] MEDS ORDERED: SODIUM CHLORIDE 0.9% 250 ML IV PRN ×2 (07:21)
[2022-02-01] MEDS: ATORVASTATIN 40 MG TAB PO SCH (09:12)
[2022-02-01] MEDS: ASPIRIN 81 MG ECTAB PO SCH ×2 (09:12→20:55)
[2022-02-01] MEDS: MULTIVITAMIN TAB PO SCH (09:12)
[2022-02-01] MEDS: DOCUSATE SODIUM 100 MG CAP PO SCH ×2 (09:12→19:38)
--- NOTE | 2022-02-01 13:43 | Hospitalist Progress Note ---
Date of Service February 01, 2022 Assessment & Plan (1) Prosthetic joint infection of left hip: (2) Staphylococcus aureus bacteremia: Plan: Periprosthetic infection of left hip s/p I&D 01/29/22- Cultures Staph aureus- MSSA . , on hemovacc suction, plan for iv Ancef- 6 weeks per ortho followed by chronic ABx suppression. ID recommends iv ancef for 6 weeks, rifampin after blood cx negative and po keflex for chronic suppression 3 months to [facility]. Staph aureus bacteremia- Blood clx 01/28 positive- MSSA , Repeat blood cx negative so far.. On IV ANcef. TTE no obvious vegetations. ID consulted. Acute blood loss anemia- Hb 8.5 today. Baseline of 14. EBL 200 cc, Getting one unit of prbc today. clemente fu labs. Essential HTN- holding home losartan HCTZ as BP low. Will resume his BP meds as it started to get elevated. H/o Asthma- stable, no exacerbation. On albuterol prn DVT ppx- on aspirin per primary team- recommend sc heparin or lovenox when stable- will defer to ortho. Dispo- per primary team, Will need IV ABx at discharge . Admission and Anticipated Discharge Date Admission Date: January 28, 2022 Subjective resting comfortably ambulated in hallway denies pain no sob no chest pain afebrile getting prbc transfusion Review of Systems Review of Systems: All systems reviewed & are unremarkable except as noted in Subjective Physical Exam Constitutional: WD/WN, vitals as above Neck: trachea midline, no thyromegaly Respiratory: normal respiratory effort, lungs clear to auscultation Cardiovascular: RRR, no murmur, no edema Gastrointestinal (Abdomen): normal bowel sounds, soft, nontender, no hepatosplenomegaly Neurologic: alert and oriented, no facial palsy, no dysarthria, moves extremities Psychiatric: A+Ox3, euthymic affect Results & Data Results & Data ([facility]) Vital Signs (Past 12 Hours) Vital Signs Temp Pulse Pulse Resp BP BP Pulse Ox 02/01/22 13:10 37 C 71 16 155/82 H 97 02/01/22 12:10 36.6 C 77 16 156/77 H 97 02/01/22 11:10 36.9 C 79 16 149/75 H 96 02/01/22 10:40 36.7 C 84 16 157/79 H 97 02/01/22 10:25 36.8 C 78 16 160/77 H 96 02/01/22 10:11 37.0 C 76 16 152/76 H 97 02/01/22 07:15 37.1 C 84 16 144/74 H 96
[2022-02-01] MEDS ORDERED: hydrALAZINE HCL 20 MG/ML VIAL IV PRN (13:48)
[2022-02-01] MEDS ORDERED: oxyCODONE HCL IR 5 MG TAB (IMMEDIATE RELEASE) PO PRN (15:36)
[2022-02-01] MEDS: ACETAMINOPHEN 500 MG TAB PO PRN ×2 (15:42→22:32)
[2022-02-01 16:39] LABS: Appearance Urine Clear (Clear); Bilirubin Urine Negative (Negative); Blood Urine Negative (Negative); Color Urine Yellow; Glucose Urine UA Negative (Negative); Ketones Urine Negative (Negative); Leukocyte Esterase Urine Negative (Negative); Nitrite Urine Negative (Negative); Protein Urine Negative (Negative); Specific Gravity Urine 1.009 (1.000-1.030); Urobilinogen Urine Negative (Negative)
[2022-02-01] MEDS: SENNA 8.6 MG TAB PO SCH (19:38)
[2022-02-02] MEDS: ACETAMINOPHEN 500 MG TAB PO PRN (06:25)
[2022-02-02] MEDS: ceFAZolin 2000MG 2,000 MG/15 ML SYR IV SCH ×2 (06:25→14:14)
[2022-02-02 07:23] LABS: Basophils # (auto) 0.04 K/uL (0-0.2); Basophils % (auto) 0.5 %; Eosinophils # (auto) 0.64 K/uL (0-0.5); Eosinophils % (auto) 8.1 %; Hematocrit (blood only) 26.6 % (42-52); Hemoglobin 8.9 g/dL (14.0-18.0); Immature Granulocytes # (auto) 0.02 K/uL (0.00-0.02); Immature Granulocytes % (auto) 0.3 %; Lymphocytes # (auto) 1.34 K/uL (1.2-3.4); Lymphocytes % (auto) 16.9 %; Mean Corpuscular Hemoglobin 30.5 pg (25-34); Mean Corpuscular Hgb Conc 33.5 g/dL (32-36); Mean Corpuscular Volume 91.1 fL (80-100); Monocytes % (auto) 12.6 %; Neutrophils # (auto) 4.87 K/uL (1.4-6.5); Neutrophils % (auto) 61.6 %; Platelet Count 258 K/uL (130-400); RDW Coefficient of Variation 13.3 % (11.5-14.5); RDW Standard Deviation 44.2 fL (36.4-46.3); Red Blood Count 2.92 M/uL (4.7-6.1); White Blood Count 7.91 K/uL (4.8-10.8)
[2022-02-02] MEDS: ASPIRIN 81 MG ECTAB PO SCH (08:02)
[2022-02-02] MEDS: MULTIVITAMIN TAB PO SCH (08:02)
[2022-02-02] MEDS: DOCUSATE SODIUM 100 MG CAP PO SCH (08:03)
[2022-02-02] MEDS: ATORVASTATIN 40 MG TAB PO SCH (08:03)
[2022-02-02 08:06] LABS: Creatinine Clr Calc Pharmacy 118.8 ml/min; Est GFR (African American) 100.9 ml/min; Est GFR (Non-African American) 87.1 ml/min
--- NOTE | 2022-02-02 10:11 | XRay Report ---
XR chest 2V PA/lateral HISTORY: shortness of breath COMPARISON: Chest 01/29/2022. FINDINGS: No pneumothorax. No pleural effusions. The cardiac silhouette is top normal in size. No new focal lung consolidations to suggest pneumonia. No evidence for pulmonary edema. There is a right sh oulder prosthesis again noted. [id number] degenerative changes within the thoracic spine. IMPRESSION: No significant change compared to the prior study. No acute process. ACT 112: Negative or not required by law. Electronically signed by: Aníbal Soares M.D. 02/02/2022 10:10 AM
--- NOTE | 2022-02-02 10:52 | Orthopedic Progress Note ---
Date of Service February 02, 2022 Assessment & Plan (1) Prosthetic joint infection of left hip: He said he is ready for discharge today. His blood cultures have shown no growth at [address] a PICC line. The consent was signed. He is currently getting Ancef 2 g IV every 8 hours. He will continue this regimen for 6 weeks. We will get weekly CBCs and LFTs to monitor. We are also going to start him on rifampin. He is on aspirin for DVT prophylaxis. The nursing staff will show him and his how to administer the antibiotics. Once everything is set up, he can be discharged home. He will follow-up with orthopedics in 2 weeks for staple removal. Alba Verduzco was seen and examined at bedside this morning. Overall he is doing fairly well. He was having a little trouble breathing last night. The hospitalist is ordering a chest x-ray. He feels better now. He has had a little bit of drainage from his hip wound but not much. He is not having much hip pain. He has no new complaints. Review of Systems All systems reviewed & are unremarkable except as noted in HPI & below. Physical Exam On physical examination of the left hip the dressing looks okay. The Silverlon still intact. He sitting in chair at bedside. He has active dorsiflexion plantarflexion of his left ankle.. Results & Data Results & Data Laboratory Results . Diagnostic Findings . PG Care Time/CCT Total # of Minutes Spent Total Time Spent with Patient: Total time spent is greater than 50% in coordination of care (as documented) at patient's floor/unit and/or counseling patient: Coding Level of Care Code 16463 Post Operative Follow-Up Diagnoses Prosthetic joint infection of left hip T84.52XA
--- NOTE | 2022-02-02 11:04 | Discharge Summary ---
Date of Service February 02, 2022 Admission HPI (Per Admitting) Dax is a pleasant 71-year-old male who I did a left anterior hip replacement on 3 weeks ago. He was initially doing very well. He came by our office last week and had edie removed. He then adds an episode where he had some bloody discharge while in the shower from the inferior aspect of his incision. After that he began having some incisional pain and discomfort. Yesterday, he began having fevers and chills. He came to the emergency room with his . His white count as well as a sed rate and CRP were elevated. His incision looked fully closed. I decided to admit him to the hospital for possible superficial I&D of the left hip the following day. Admission Exam (Per Admitting) On physical examination of the left hip, the incision is fully closed. There is a little bit of induration in the area. There is a little bit of redness near the incision but there certainly does not appear to be any aggressive infections or signs of large abscess. The wound has not been draining. Principal Diagnosis Same as "Discharge Diagnosis" noted below under Discharge Instructions. Discharge Exam On physical examination of the left hip the dressing looks okay. The Silverlon still intact. He sitting in chair at bedside. He has active dorsiflexion plantarflexion of his left ankle.. Discharge Data Consultations 01/28/22 23:27 ED Decision to Admit Stat 01/29/22 17:28 Consult Infectious Diseases Routine 01/29/22 17:38 Consult Hospitalist Routine Procedures Performed Operation Date: 01/29/22 08:00 Actual Procedures p Irrigation and debridement of deep infection of the left hip with femoral head and acetabular polyethylene exchange-left(Left) - Lul Jordan DO Hospital Course (1) Prosthetic joint infection of left hip: On January 28, 2022 Dax went to the emergency room for fevers chills and increased pain of his right hip. He was admitted immediately to my service. On examination, there was concerns for a deep periprosthetic hip infection. The following day, he underwent open I&D with modular component exchange of the left hip. There was a deep periprosthetic joint infection cultures were obtained. Postoperatively he was placed on vancomycin. He was given aspirin for DVT prophylaxis. Cultures began growing staph and he was then switched from vancomycin to Ancef 2 g IV every 8 hours. He was followed by the hospitalist for some bacteremia and repeat blood cultures were obtained. He was also seen in consultation by infectious disease. Infectious disease recommended continue the IV Ancef for 6 weeks and adding oral rifampin once blood cultures were negative. He was not having much pain in his hip. He was able to participate well with physical therapy. He was eating well. He was then starting to feel a little bit symptomatic with anemia. He was given a unit of packed red blood cells and that seemed to help him feel a lot better. On postop day #4 the final hip cultures grew out staph. It was sensitive to the Ancef. The follow-up blood cultures were negative. A PICC line was placed. He and his were shown how to deliver antibiotics with a PICC line. He was then discharged to home with detailed instructions. He will follow-up with orthopedics in 2 weeks. PG Care Time/CCT Total # of Minutes Spent Total Time Spent with Patient: Total time spent is greater than 50% in coordination of care (as documented) at patient's floor/unit and/or counseling patient: Discharge Plan Discharge Items Reason For Visit: STATUS POST HIP REPLACEMENT Discharge Diagnosis: Left hip infection Activity: As commented below Non-emergency contact: Surgeon Call non-emergency contact if: your wound has increased redness and your wound has increased drainage Follow-up/Referrals: Melquiades Persaud MD [Primary Care Provider] - Diet: Regular Addtl Attending Provider Instructions: Activity and Therapy Recommendations: * If you are using [facility] then therapy will be provided at your home until they feel you have accomplished all of your goals. * If you are using [facility] then Physical Therapy will be provided until they feel you are ready to start Outpatient Physical Therapy. * If you are not using home therapy then Outpatient Physical Therapy should start about 3-5 days from your day of surgery. Therapy will last about 6-10 weeks * You were shown a series of exercises in the hospital. Do these exercises three times each day including the exercises you were shown in physical therapy. * Get up and walk several times each day.~ For the first four weeks, try not to stand or walk for more than one hour at a time. If you do stand or walk for more than one hour, you will not hurt anything, but your leg will likely swell .~~ * As you feel comfortable, you may change from the walker or crutches to a cane and~then to independent walking. Medications: * Narcotic: You can continue your narcotics as needed. If you need a refill of the narcotics please feel free to contact the office. * Aspirin: Continue the aspirin twice a day for 6 weeks from your second surgery. This is to prevent blood clots. * Take the Ancef 2 g IV every 8 hours for 6 weeks. * Take the rifampin as prescribed. * Obtain the blood work including CBC and LFTs weekly. * Other medications may be prescribed for specific circumstances. If you have any questions, please call the office at . * Resume previous home medications unless otherwise instructed TEDs/Elastic Stockings: The white elastic stockings help limit swelling and prevent blood clots from forming in your legs. The more you wear them, the more they work. Wear them for six weeks. Dressing Care: Leave the Silverlon dressing in place for 7 days. After 7 days you may remove the dressing. If the incision is not draining then you may leave the edie open to air. If there is a little bit of drainage or if the edie are getting stuck on your clothing then cover the incision with a dry dressing. The edie will be removed at your 2 week follow-up appointment. Showering: You may shower with the Silverlon dressing in place. Do not let the shower spray hit the dressing directly. Pat the Silverlon dressing dry. If the dressing becomes wet underneath, then simply remove the dressing. Keep the incision dry until you are 7 days out from the day of surgery. After 7 days you may remove the Silverlon dressing and shower with the edie exposed. Let soapy water run over the edie and pat them dry. Do not scrub or soak the incision. Things To Watch For: * Drainage from the incision site that occurs more than one week after your surgery. * Increased redness at the incision site. * Fever above 102 degrees Fahrenheit. * Unusual chest pain or shortness of breath. * Call [facility] at with any of the above problems Follow-Up Visit: Follow-up with Dr. Jordan 2-3 weeks after your day of surgery. He will remove your edie and answer any questions. Please call the office to make an appointment for a time that works for you. Pending Studies at Discharge: No Stand-Alone Forms: My [facility], Smoking Cessation Medications and DC Order Prescriptions: New rifampin 300 mg capsule 300 mg PO Q12H Qty: 84 RF: 0 Continued oxycodone-acetaminophen [Percocet] 5-325 mg tablet 1 tab PO Q6H PRN (Reason: pain) Qty: 30 RF: 0 losartan-hydrochlorothiazide 50-12.5 mg Tablet 1 tab PO QAM RF: 0 omeprazole 20 mg Capsule,Delayed Release(Dr/Ec) 20 mg PO QAM PRN (Reason: Heartburn) RF: 0 albuterol sulfate 90 mcg/actuation Hfa Aerosol Inhaler 1 puff INHALATION Q6H PRN (Reason: Wheezing) RF: 0 meloxicam 15 mg Tablet 15 mg PO QAM RF: 0 aspirin [Adult Aspirin Regimen] 81 mg tablet,delayed release (DR/EC) 81 mg PO BID Qty: 84 RF: 0 atorvastatin 40 mg tablet 40 mg PO DAILY RF: 0 Admission Data Admit Date/Time: 01/28/22 23:32 Attending Provider: Lul Jordan Admit Provider: Lul Jrodan Primary Care Provider: Melquiades Persaud Other Providers: Benny Elizabeth ; Bunny Edgar ; Caleb Grande I. ; Gennaro Kelley II ; Leilani Guerrero ; Christopher Bella ; Dwight De La Fuente ; Riky Barton Lauren ; Bruce Singh Robert R. ; Kiran Collins ; Max Verdugo ; True Shelton ; Isabella Farris ; Julio Cesar Breen ; Patricia Grande ; Piotr Powers ; Isac Qureshi ; Gabriela Wynn ; Nicky Farley ; Cedric Sierra ; Phoebe Esposito ; Garland Milian ; Rubin Ware ; Rod Escalante ; Bruce Pat ; Jody Blank ; Leelee Brewster ; Rhys Smith ; Zainab Saucedo ; Constantine Mae ; Loki Hoang ; Haider Henderson ; Antonina Shahid ; João Galvan ; Jerome Morrison. ; [facility]
[2022-02-02] MEDS: LOSARTAN/HCTZ 50/12.5MG TAB PO SCH (11:10)
--- NOTE | 2022-02-02 12:49 | Hospitalist Progress Note ---
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 Acute blood loss anemia Hb was 13.5 preop and 8.9 today. Baseline of 14. EBL 200 cc Got 1 PRBC. Hypertension Resume home losartan HCTZ H/o Asthma Continue albuterol prn Episodes of waking up 'gasping for breath' CXR today did not show acute abnormality Discussed with patient about need to discuss sleep study with PCP to rule out FRANK Admission and Anticipated Discharge Date Admission Date: January 28, 2022 Subjective Patient seen and examined. Reports surgical site pain is well controlled. Ambulating without difficulty. Reported waking up at night gasping for breath. Patient reported to me that he has history of this in the past and it happens occasionally. He believes this is related to his asthma. He stated his has not noted he chokes/snores Reported that this usually subsides once he wakes up and walks around. Denies any chest pain, cough, shortness of breath Denies any wheezing. Denies any nausea, vomiting, abdominal pain, diarrhea Denies dysuria, frequency or urgency Physical Exam Constitutional: + well hydrated; no acute distress Eyes: PERRL, conjunctivae normal, anicteric sclerae ENMT: external ear and nose normal, oropharynx normal Respiratory: normal respiratory effort, lungs clear to auscultation Cardiovascular: Rate/Rhythm: regular rate and regular rhythm S1 S2 Gastrointestinal (Abdomen): normal bowel sounds, soft, nontender, no hepatosplenomegaly Musculoskeletal: Clean dressing over left hip surgical site Neurologic: PERRL, EOMI, accommodation nl, no face palsy, no dysarthria Psychiatric: A+Ox3, euthymic affect Results & Data Results & Data ([facility]) Vital Signs (Past 12 Hours) Vital Signs Temp Pulse Pulse Resp BP BP Pulse Ox 02/02/22 07:14 37.2 C 66 18 149/74 H 96 02/02/22 07:04 36.7 C 71 16 155/82 H 98 Laboratory Results Abnormal lab results 02/01/22 02/02/22 Range/Units 08:08 06:39 RBC 2.92 L (4.7-6.1) M/uL Hgb 8.9 L (14.0-18.0) g/dL Hct 26.6 L (42-52) % [place] # (Auto) 1.00 H (0.11-0.59) K/uL Eos # (Auto) 0.64 H (0-0.5) K/uL Crossmatch See Detail
== END 2022-02-02 14:38 | disposition home health service (06) | DRG 467 ==
LOC: ED 19:57 → 3N 23:32

== ENCOUNTER 2022-02-21 01:38 | Observation (INO) ==
[2022-02-21] MEDS ORDERED: HYDROmorphone INJ 1 MG/ML SYRINGE IV STA ×2 (02:16→04:24)
[2022-02-21 02:34] LABS: Hematocrit (blood only) 31.3 % (42-52); Hemoglobin 10.3 g/dL (14.0-18.0); Mean Corpuscular Hemoglobin 30.3 pg (25-34); Mean Corpuscular Hgb Conc 32.9 g/dL (32-36); Mean Corpuscular Volume 92.1 fL (80-100); Mean Platelet Volume 9.8 fL (7.4-10.4); Platelet Count 364 K/uL (130-400); RDW Coefficient of Variation 13.3 % (11.5-14.5); RDW Standard Deviation 44.7 fL (36.4-46.3); White Blood Count 10.37 K/uL (4.8-10.8)
--- NOTE | 2022-02-21 02:36 | Emergency Department Note ---
Impression & Plan Bilateral foot pain, Right [facility]illes tend[facility] NAME: JACOB BELL AGE: 71 SEX: M ARRIVES VIA: Walk-In INFORMANT: Patient and his ED PROVIDER(S): Kezia Zavaleta DO CHIEF COMPLAINT: Bilateral feet pain PLAN: Disposition: Evaluation by the [facility] Condition: Stable MEDICAL DECISION MAKING: This is a 71-year-old male patient with a history of postsurgical left hip infection who is receiving IV Ancef and IV rifampin through a PICC line who presents to the emergency department with 36-hour history of bilateral foot pain. The patient has no leukocytosis but does have an increased neutrophil count. C-reactive protein is slightly elevated. The patient is afebrile. There is no erythema or warmth noted to either foot, especially over the great toe. The patient has exquisite tenderness to palpation over the right Achilles tendon. However, the entire right foot seems to be painful to palpation including the plantar aspect and dorsal aspect of the midfoot. The actual ankle itself does not seem to be tender. I do not suspect gout. I could not elicit a specific joint as being the source of the patient's pain the patient has extreme pain with both dorsiflexion and plantarflexion at the ankle. He did get moderate leaf of his discomfort with IV Dilaudid but will require admission to the hospital for intractable pain and further evaluation by orthopedics. This may be a side effect of the rifampin. The patient had similar pain in the left foot but that pain seems to have subsided yesterday. Triage Nursing notes reviewed and agree with them. Additional history obtained from his is at the bedside Prior medical records reviewed Vital Signs: reviewed and unremarkable Differential diagnosis: Gout, migratory arthritis, septic joint, medication side effects ER treatment provided: IV Dilaudid Diagnostics interpreted by me: Laboratory studies: See below HPI: 71/M arrives for evaluation of bilateral foot pain. The patient has developed pain in both of his feet over the past 3 days. The left foot seems to have improved yesterday but the right foot now is exquisitely tender, most specifically over the Achilles tendon and now in the midfoot. There is exq uisite pain with plantarflexion dorsiflexion. There is no erythema or warmth noted to any specific joint. There is some overall edema to the right foot. ROS: See above HPI for pertinent positives & negatives. A total of 10 systems reviewed and were otherwise negative. PAST MEDICAL HISTORY:See Below PAST SURGICAL HISTORY:See Below FAMILY HISTORY:See Below SOCIAL HISTORY:See Below HOME MEDICATIONS: See list ALLERGIES: See list VITALS:See Below PHYSICAL EXAMINATION: HEENT: Head - normocephalic and atraumatic. Pupils are equal, round, and reactive to light. Extraocular eye muscles are intact, and sclera are anicteric. Nose - moist nasal mucosa without discharge. Mouth - moist buccal mucosa. Oropharynx is nonerythematous and there is no tonsillar exudate or edema noted. Neck: Supple; no lymphadenopathy Heart: Regular rate and rhythm. There is a normal S1 and S2 with no murmurs, clicks, or gallops appreciated. Lungs: Clear to auscultation bilaterally with no wheezes, rales, or rhonchi. Abdomen: Soft, completely nontender, nondistended, with good bowel sounds. There are no palpable pulsatile masses or hepatosplenomegaly. There is no guarding, rigidity, or rebound noted. Extremities: The patient has exquisite tenderness to palpation over the right Achilles tendon and throughout the right midfoot no warmth or redness noted about the foot. There is some edema noted to the right foot. She has very minimal discomfort with palpation of the left midfoot. Skin: warm and dry with good turgor and no rashes. ED COURSE: Times/Reassessments: 150: Patient was evaluated in room B4. A complete history and physical was performed. Labs were drawn as above. The patient was given 1 mg of IV Dilaudid for the pain in his feet. The patient got significant relief of his discomfort with the initial dose of Dilaudid but that started to wear off and he required a second dose. I discussed the case with the [facility] hospitalist and they will evaluate for further management. 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 BIGEMINY NOTED ON MONITOR ONCE-- EVALUATED BY DR YARBROUGH 2015. ECHO WNL. PT ASYMPTOMATIC. Restless legs Stable Surgical History History of adenoidectomy History of cataract surgery RIGHT AND LEFT History of colonoscopy History of discectomy LUMBAR AREA (X3 SURGERIES WITHIN 21 DAYS) WITH REVISIONS DUE TO DURA BEING CUT DURING FIRST SURGERY L4-5 History of endoscopic sinus surgery History of esophagogastroduodenoscopy (EGD) History of herniorrhaphy UMBILICAL History of tonsillectomy History of tooth extraction History of total shoulder replacement RIGHT - [facility] Hx of thumb surgery right Social History Smoking Status: Never smoker Second Hand Exposure: No; Hx Alcohol Use: Yes Alcohol type: beer Hx Substance Use: No Preferred Language: Uzbek Communication Ability: Effective 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 Beliefs That Will Affect Care: None marital status: Current Living Situation: Spouse Feels Safe at Home: Yes Assistive Devices: Walker Allergies Allergies Allergy/AdvReac Type Severity Reaction Status Date / Time ibuprofen AdvReac Mild NASAL Verified 02/21/22 02:23 STUFFINESS Home Meds Home Medications Medication Instructions Recorded Confirmed losartan 50 mg-hydrochlorothiazide 1 tab PO QAM 09/02/18 02/21/22 12.5 mg tablet albuterol sulfate 90 mcg/actuation 1 puff INHALATION Q6H PRN 09/03/18 02/21/22 aerosol inhaler omeprazole 20 mg capsule,delayed 20 mg PO QAM PRN 09/03/18 02/21/22 release meloxicam 15 mg tablet 15 mg PO QAM 11/17/21 02/21/22 atorvastatin 40 mg tablet 40 mg PO DAILY 01/28/22 02/21/22 Lactobacillus acidophilus 10 20,000 mmu cells PO DAILY 02/21/22 02/21/22 billion cell capsule (Probiotic) cefazolin 1 gram/50 mL in dextrose 0 ml IV Q8H 02/21/22 02/21/22 (iso-osmotic) intravenous piggyback multivitamin with iron 1 tab PO DAILY 02/21/22 02/21/22 Previous Rx's Medication Instructions Recorded aspirin 81 mg tablet,delayed 81 mg PO BID #84 tab 01/05/22 release (Adult Aspirin Regimen) rifampin 300 mg capsule 300 mg PO Q12H #84 cap 02/02/22 Results & Data (ED) Vital Signs Vital Signs - 24 hr 02/21/22 01:42 02/21/22 02:36 02/21/22 04:11 Temperature 36.6 C Temperature Source Temporal Artery Scan Pulse Rate 61 Pulse Rate [Right] 88 72 Respiratory Rate 18 18 14 Respiratory Effort / Characteristics Non-Labored Respiratory Depth Normal Blood Pressure 145/71 H Blood Pressure [Right Arm] 150/77 H 146/71 H Blood Pressure Mean 95 Blood Pressure Mean [Right Arm] 101 96 Pulse Oximetry 99 96 97 Oxygen Delivery Method Room Air Room Air Room Air Sepsis Recent Fever Within 48 Hours No Sepsis New/Unexplained Change in Mental Status No Sepsis Action Taken by Nursing No Action Required 02/21/22 04:52 Temperature Temperature Source Pulse Rate Pulse Rate [Right] Respiratory Rate 16 Respiratory Effort / Characteristics Respiratory Depth Blood Pressure Blood Pressure [Right Arm] Blood Pressure Mean Blood Pressure Mean [Right Arm] Pulse Oximetry 95 Oxygen Delivery Method Room Air Sepsis Recent Fever Within 48 Hours Sepsis New/Unexplained Change in Mental Status Sepsis Action Taken by Nursing Laboratory Data Result diagrams: 02/21/22 02:20 02/21/22 02:20 Lab Results 02/21/22 02/21/22 02/21/22 Range/Units 02:20 02:20 02:20 WBC 10.37 (4.8-10.8) K/uL RBC 3.40 L (4.7-6.1) M/uL Hgb 10.3 L (14.0-18.0) g/dL Hct 31.3 L (42-52) % MCV 92.1 (80-100) fL MCH 30.3 (25-34) pg MCHC 32.9 (32-36) g/dL RDW Std Deviation 44.7 (36.4-46.3) fL RDW Coeff of Melanie 13.3 (11.5-14.5) % Plt Count 364 (130-400) K/uL MPV 9.8 (7.4-10.4) fL Immature Gran % (Auto) 0.2 % Neut % (Auto) 64.1 % Lymph % (Auto) 16.5 % [place] % (Auto) 13.5 % Eos % (Auto) 5.3 % Baso % (Auto) 0.4 % Neut # (Auto) 6.65 H (1.4-6.5) K/uL Lymph # (Auto) 1.71 (1.2-3.4) K/uL [place] # (Auto) 1.40 H (0.11-0.59) K/uL Eos # (Auto) 0.55 H (0-0.5) K/uL Baso # (Auto) 0.04 (0-0.2) K/uL Immature Gran # (Auto) 0.02 (0.00-0.02) K/uL Rouleaux 1+ Sodium 135 L (136-145) mmol/L Potassium 3.9 (3.5-5.1) mmol/L Chloride 101 (98-107) mmol/L Carbon Dioxide 27 (21-32) mmol/L Anion Gap 7 (3-11) BUN 19 (6-23) mg/dl Creatinine 0.89 (0.6-1.4) mg/dl Est Cr Clr Drug Dosing 109.8 ml/min Est GFR ( Amer) 99.0 ml/min Est GFR (Non-Af Amer) 85.4 ml/min BUN/Creatinine Ratio 21.3 H (10-20) Glucose 113 H (70-99(Fasting)) mg/dl Estimat Average Glucose mg/dl Hemoglobin A1c (4.5-5.6) % Uric Acid 4.9 (2.6-7.2) mg/dl Calcium 9.3 (8.5-10.1) mg/dl Total Bilirubin 0.3 (0.2-1.0) mg/dl AST 11 L (13-39) U/L ALT < 3 L (7-52) U/L Alkaline Phosphatase 110 H (34-104) U/L Total Creatine Kinase 54 (30-223) U/L C-Reactive Protein 4.55 H (0-0.5) mg/dl Total Protein 8.0 (6.0-8.3) gm/dl Albumin 3.7 (3.4-5.0) gm/dl Globulin 4.3 H (2.5-4.0) gm/dl Albumin/Globulin Ratio 0.9 (0.9-2) SARS-CoV-2, RNA, NAAT (NEGATIVE) 02/21/22 02/21/22 Range/Units 02:20 04:30 WBC (4.8-10.8) K/uL RBC (4.7-6.1) M/uL Hgb (14.0-18.0) g/dL Hct (42-52) % MCV (80-100) fL MCH (25-34) pg MCHC (32-36) g/dL RDW Std Deviation (36.4-46.3) fL RDW Coeff of Melanie (11.5-14.5) % Plt Count (130-400) K/uL MPV (7.4-10.4) fL Immature Gran % (Auto) % Neut % (Auto) % Lymph % (Auto) % [place] % (Auto) % Eos % (Auto) % Baso % (Auto) % Neut # (Auto) (1.4-6.5) K/uL Lymph # (Auto) (1.2-3.4) K/uL [place] # (Auto) (0.11-0.59) K/uL Eos # (Auto) (0-0.5) K/uL Baso # (Auto) (0-0.2) K/uL Immature Gran # (Auto) (0.00-0.02) K/uL Rouleaux Sodium (136-145) mmol/L Potassium (3.5-5.1) mmol/L Chloride (98-107) mmol/L Carbon Dioxide (21-32) mmol/L Anion Gap (3-11) BUN (6-23) mg/dl Creatinine (0.6-1.4) mg/dl Est Cr Clr Drug Dosing ml/min Est GFR ( Amer) ml/min Est GFR (Non-Af Amer) ml/min BUN/Creatinine Ratio (10-20) Glucose (70-99(Fasting)) mg/dl Estimat Average Glucose 114 mg/dl Hemoglobin A1c 5.6 (4.5-5.6) % Uric Acid (2.6-7.2) mg/dl Calcium (8.5-10.1) mg/dl Total Bilirubin (0.2-1.0) mg/dl AST (13-39) U/L ALT (7-52) U/L Alkaline Phosphatase (34-104) U/L Total Creatine Kinase (30-223) U/L C-Reactive Protein (0-0.5) mg/dl Total Protein (6.0-8.3) gm/dl Albumin (3.4-5.0) gm/dl Globulin (2.5-4.0) gm/dl Albumin/Globulin Ratio (0.9-2) SARS-CoV-2, RNA, NAAT NEGATIVE (NEGATIVE) Administered Medications Aspirin (Aspirin 81 Mg Ectab) 81 mg PO BID BIENVENIDO Stop: 03/23/22 08:59 Last Admin: 02/21/22 08:50 Dose: 81 mg Documented by: [id number] Atorvastatin Calcium (Atorvastatin 40 Mg Tab) 40 mg PO DAILY BIENVENIDO Stop: 03/23/22 08:59 Last Admin: 02/21/22 08:50 Dose: 40 mg Documented by: [id number] Lactated Ringer's (Lr) 1,000 mls @ 50 mls/hr IV .Q20H ONE Stop: 02/22/22 01:22 Last Admin: 02/21/22 06:40 Dose: 50 mls/hr Documented by: [id number] Cefazolin Sodium (Ancef 2000mg) 2,000 mg in 15 mls @ 3.75 mls/min IV Q8H BIENVENIDO Stop: 04/04/22 07:29 Last Admin: 02/21/22 16:25 Dose: 3.75 mls/min Documented by: [id number] Admin: 02/21/22 07:39 Dose: 3.75 mls/min Documented by: [id number] Lactobacillus Acidophilus (Advanced Probiotic 1250 Mg Capsule) 2 cap PO DAILY BIENVENIDO Stop: 03/23/22 08:59 Last Admin: 02/21/22 09:31 Dose: 2 cap Documented by: [id number] Losartan Potassium (Losartan Potassium 50 Mg Tab) 50 mg PO QAM BIENVENIDO Stop: 03/23/22 08:59 Last Admin: 02/21/22 09:31 Dose: 50 mg Documented by: [id number] Multivitamins/Minerals (Cerovite Adv Formula Tab) 1 tab PO DAILY BIENVENIDO Stop: 03/23/22 08:59 Last Admin: 02/21/22 08:50 Dose: 1 tab Documented by: [id number] Oxycodone HCl (Oxycodone Hcl Ir 5 Mg Tab (Immediate Release)) 5 - 10 mg PO QID PRN PRN Reason: Pain Stop: 03/07/22 06:38 Last Admin: 02/21/22 07:26 Dose: 10 mg Documented by: [id number] Rifampin (Rifampin 300 Mg Capsule) 300 mg PO Q12 BIENVENIDO Stop: 04/04/22 08:59 Last Admin: 02/21/22 09:31 Dose: 300 mg Documented by: [id number] Discontinued Medications Bupivacaine HCl (Bupivacaine 0.5 % 5 Mg/1 Ml Mpf 30ml Vial) 2 ml INFIL ONCE ONE Stop: 02/21/22 09:01 Last Admin: 02/21/22 11:57 Dose: Not Given Documented by: [id number] Bupivacaine HCl/Epinephrine Bitart (Bupivacaine/Epinephrine 0.25% 1:200,000 30 Ml Vial) 30 ml INFIL NOW ONE Stop: 02/21/22 06:47 Last Admin: 02/21/22 11:57 Dose: Not Given Documented by: [id number] Hydromorphone HCl (Hydromorphone Inj 1 Mg/Ml Syringe) 1 mg IV NOW STA Stop: 02/21/22 02:17 Last Admin: 02/21/22 02:30 Dose: 1 mg Documented by: [id number] Hydromorphone HCl (Hydromorphone Inj 1 Mg/Ml Syringe) 1 mg IV NOW STA Stop: 02/21/22 04:25 Last Admin: 02/21/22 04:32 Dose: 1 mg Documented by: [id number] Prednisone (Prednisone 20 Mg Tab) 40 mg PO NOW STA Stop: 02/21/22 05:28 Last Admin: 02/21/22 06:00 Dose: 40 mg Documented by: [id number] Triamcinolone Acetonide (Triamcinolone Acet 40 Mg/Ml Vial) 40 mg IA NOW ONE Stop: 02/21/22 06:47 Last Admin: 02/21/22 11:57 Dose: Not Given Documented by: [id number] Imaging Data Radiologist's Impression: Foot X-Ray 02/21/22 05:12 XR foot RT min 3V routine CLINICAL HISTORY: swelling. No history of injury COMPARISON STUDY: No previous studies for comparison. TECHNIQUE: 4 right foot views FINDINGS: Bones: There is no evidence for an acute fracture or dislocation. There is no lytic or blastic lesion. Joints: The joint spaces are maintained. The bones are in anatomic alignment. Soft tissues: There is mild diffuse soft tissue swelling. There is no radiopaque foreign body. IMPRESSION: 1. No acute osseous pathology. 2. Mild diffuse soft tissue swelling. ACT 112: Negative or not required by law. Electronically signed by: Sean Reed M.D. 02/21/2022 8:07 AM Discharge Plan Visit Data Chief Complaint: Foot Injury/Pain Stated Complaint: SHARP SHOOTING PAIN IN R. FOOT/ANKLE ED Provider: Kezia Zavaleta Discharge Problem: Bilateral foot pain, Right Achilles tendinitis Patient Disposition: Admitted As Inpatient Discharge Instructions Interventions: ED Discharge Assessment Last Done: 02/21/22 05:58
[2022-02-21 02:54] LABS: Basophils # (auto) 0.04 K/uL (0-0.2); Basophils % (auto) 0.4 %; Eosinophils # (auto) 0.55 K/uL (0-0.5); Eosinophils % (auto) 5.3 %; Immature Granulocytes # (auto) 0.02 K/uL (0.00-0.02); Immature Granulocytes % (auto) 0.2 %; Lymphocytes # (auto) 1.71 K/uL (1.2-3.4); Lymphocytes % (auto) 16.5 %; Monocytes % (auto) 13.5 %; Neutrophils # (auto) 6.65 K/uL (1.4-6.5); Neutrophils % (auto) 64.1 %; Rouleaux 1+
[2022-02-21 03:02] LABS: Anion Gap 7 (3-11); BUN Creatinine Ratio 21.3 (10-20); Blood Urea Nitrogen 19 mg/dl (6-23); C Reactive Protein 4.55 mg/dl (0-0.5); Calcium 9.3 mg/dl (8.5-10.1); Carbon Dioxide 27 mmol/L (21-32); Chloride 101 mmol/L (98-107); Creatinine Clr Calc Pharmacy 109.8 ml/min; Est GFR (Non-African American) 85.4 ml/min; Glucose 113 mg/dl (70-99(Fasting)); Potassium 3.9 mmol/L (3.5-5.1); Sodium 135 mmol/L (136-145)
[2022-02-21 03:12] LABS: Alanine Aminotransferase < 3 U/L (7-52); Albumin Globulin Ratio 0.9 (0.9-2); Albumin Level 3.7 gm/dl (3.4-5.0); Alkaline Phosphatase 110 U/L (34-104); Aspartate Aminotransferase 11 U/L (13-39); Bilirubin,Total 0.3 mg/dl (0.2-1.0); Globulin 4.3 gm/dl (2.5-4.0)
[2022-02-21] MEDS ORDERED: LACTATED RINGER'S 1,000 ML IV ONE (05:23)
[2022-02-21] MEDS ORDERED: predniSONE 20 MG TAB PO STA (05:27)
--- NOTE | 2022-02-21 05:28 | History & Physical Report ---
Date of Service February 21, 2022 Assessment & Plan (1) Right ankle swelling: Plan: With secondary right foot swelling ? Gout attack with enthesopathy Rule out occult bony injury chronic diastolic heart failure (EF 55 to 60%, TTE 2021), patient euvolemic to dry hypertension, slight elevated secondary discomfort hyperlipidemia on statin Rx asthma, patient currently without pulmonary symptoms prosthetic joint infection left hip status post recent surgery, ongoing Ancef and rifampin Rx, Postop anemia, hemoglobin better than baseline Hyperglycemia rule out DM past tobacco abuse OBS GMF Prednisone 1 dose now for possible gouty attack Plain x-rays of the right ankle and right foot Orthopedics consult Re: Right ankle/right foot swelling May benefit from Rheumatology consultation Check hemoglobin A1c DVT prophylaxis. Aspirin twice daily as per orthopedics postop discharge orders, SCDs Full code Patient requests for his to be updated of plan of care. Ms. Kisha Fontana, contact #[phone]. Text document was generated using Voxound voice recognition software. It may contain grammatical or spelling errors. Kindly contact undersigned for clarification of any documentation item in question. History of Present Illness Chief Complaint: Right foot/ankle pain/swelling Primary Care Provider: Melquiades Persaud MD History obtained from patient and records. Medical history significant for chronic diastolic heart failure (EF 55 to 60%, TTE 2021), hypertension, hyperlipidemia, asthma, gout, pseudomeningocele as per records, prosthetic joint infection left hip ongoing Ancef and rifampin Rx, past tobacco abuse. Last confinement 2 weeks ago under Orthopedics service for prosthetic joint infection left hip status post surgery. Methicillin sensitive staph aureus on CS. Patient discharged on Ancef and rifampin course as per [facility] recommendations. 2 days ago, patient noted tingling pain at his left Achilles heel. No recollection of trauma. Yesterday, pain and swelling develop over right Achilles heel spreading to the foot. No fever, no chills, no chest pain, no SOB. Episode somewhat different from his usual gout attack. Patient brought to ER by for evaluation. 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 Allergies Allergy/AdvReac Type Severity Reaction Status Date / Time ibuprofen AdvReac Mild NASAL Verified 02/21/22 02:23 STUFFINESS Home Medications Medication Instructions Recorded Confirmed Type losartan 50 mg-hydrochlorothiazide 1 tab PO QAM 09/02/18 02/21/22 History 12.5 mg tablet albuterol sulfate 90 mcg/actuation 1 puff INHALATION Q6H PRN 09/03/18 02/21/22 History aerosol inhaler omeprazole 20 mg capsule,delayed 20 mg PO QAM PRN 09/03/18 02/21/22 History release meloxicam 15 mg tablet 15 mg PO QAM 11/17/21 02/21/22 History aspirin 81 mg tablet,delayed 81 mg PO BID #84 tab 01/05/22 02/21/22 Rx release (Adult Aspirin Regimen) atorvastatin 40 mg tablet 40 mg PO DAILY 01/28/22 02/21/22 History rifampin 300 mg capsule 300 mg PO Q12H #84 cap 02/02/22 02/21/22 Rx Lactobacillus acidophilus 10 20,000 mmu cells PO DAILY 02/21/22 02/21/22 History billion cell capsule (Probiotic) cefazolin 1 gram/50 mL in dextrose 0 ml IV Q8H 02/21/22 02/21/22 History (iso-osmotic) intravenous piggyback multivitamin with iron 1 tab PO DAILY 02/21/22 02/21/22 History Past Med/Surg History Medical History Asthma Very well controlled > rare res inh use GERD (gastroesophageal reflux disease) Well controlled and stable Gout No recent issues Hyperlipidemia Hypertension 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 BIGEMINY NOTED ON MONITOR ONCE-- EVALUATED BY DR YARBROUGH 2015. ECHO WNL. PT ASYMPTOMATIC. Restless legs Stable Surgical History History of adenoidectomy History of cataract surgery RIGHT AND LEFT History of colonoscopy History of discectomy LUMBAR AREA (X3 SURGERIES WITHIN 21 DAYS) WITH REVISIONS DUE TO DURA BEING CUT DURING FIRST SURGERY L4-5 History of endoscopic sinus surgery History of esophagogastroduodenoscopy (EGD) History of herniorrhaphy UMBILICAL History of tonsillectomy History of tooth extraction History of total shoulder replacement RIGHT - [facility] Hx of thumb surgery right Social History Smoking Status: Never smoker Second Hand Exposure: No; Hx Alcohol Use: Yes Alcohol type: beer Hx Substance Use: No Preferred Language: Kazakh Communication Ability: Effective Bullet Maker Required: No Beliefs That Will Affect Care: None marital status: Current Living Situation: Spouse Other Information That Helps Us Care for You: No Feels Safe at Home: Yes Safety Concerns: Feels Safe At This Time Assistive Devices: Glasses Review of Systems Review of Systems: As per HPI, all other systems reviewed and negative Physical Exam Physical Exam: GENERAL: Comfortable, obese, pleasant, no respiratory distress SKIN: Pallor, warm HEENT: Pale palpebral conjunctivae, no ptosis, dry buccal mucosa NECK : Supple, no tenderness CHEST : CTA, no tenderness HEART : RRR, no obvious murmurs ABDOMEN: Some distention, nontender EXTREMITIES : Minimal left hip tenderness, minimal left posterior ankle tenderness, right ankle swelling extending to the midfoot with minimal tenderness NEUROLOGIC : Coherent, no facial asymmetry, gait and stance not assessed Results & Data Results & Data ([facility]) Vital Signs (Past 12 Hours) Vital Signs Temp Pulse Pulse Resp BP BP Pulse Ox 02/21/22 04:52 16 95 02/21/22 04:11 72 14 146/71 H 97 02/21/22 02:36 88 18 150/77 H 96 02/21/22 01:42 36.6 C 61 18 145/71 H 99 Laboratory Results Laboratory Results WBC 10.37 K/uL (4.8-10.8) 02/21/22 02:20 RBC 3.40 M/uL (4.7-6.1) L 02/21/22 02:20 Hgb 10.3 g/dL (14.0-18.0) L 02/21/22 02:20 Hct 31.3 % (42-52) L 02/21/22 02:20 MCV 92.1 fL (80-100) 02/21/22 02:20 MCH 30.3 pg (25-34) 02/21/22 02:20 MCHC 32.9 g/dL (32-36) 02/21/22 02:20 RDW Std Deviation 44.7 fL (36.4-46.3) 02/21/22 02:20 RDW Coeff of Melanie 13.3 % (11.5-14.5) 02/21/22 02:20 Plt Count 364 K/uL (130-400) 02/21/22 02:20 MPV 9.8 fL (7.4-10.4) 02/21/22 02:20 Immature Gran % (Auto) 0.2 % 02/21/22 02:20 Neut % (Auto) 64.1 % 02/21/22 02:20 Lymph % (Auto) 16.5 % 02/21/22 02:20 [place] % (Auto) 13.5 % 02/21/22 02:20 Eos % (Auto) 5.3 % 02/21/22 02:20 Baso % (Auto) 0.4 % 02/21/22 02:20 Neut # (Auto) 6.65 K/uL (1.4-6.5) H 02/21/22 02:20 Lymph # (Auto) 1.71 K/uL (1.2-3.4) 02/21/22 02:20 [place] # (Auto) 1.40 K/uL (0.11-0.59) H 02/21/22 02:20 Eos # (Auto) 0.55 K/uL (0-0.5) H 02/21/22 02:20 Baso # (Auto) 0.04 K/uL (0-0.2) 02/21/22 02:20 Immature Gran # (Auto) 0.02 K/uL (0.00-0.02) 02/21/22 02:20 Rouleaux 1+ 02/21/22 02:20 Sodium 135 mmol/L (136-145) L 02/21/22 02:20 Potassium 3.9 mmol/L (3.5-5.1) 02/21/22 02:20 Chloride 101 mmol/L (98-107) 02/21/22 02:20 Carbon Dioxide 27 mmol/L (21-32) 02/21/22 02:20 Anion Gap 7 (3-11) 02/21/22 02:20 BUN 19 mg/dl (6-23) 02/21/22 02:20 Creatinine 0.89 mg/dl (0.6-1.4) 02/21/22 02:20 Est Cr Clr Drug Dosing 109.8 ml/min 02/21/22 02:20 Est GFR ( Amer) 99.0 ml/min 02/21/22 02:20 Est GFR (Non-Af Amer) 85.4 ml/min 02/21/22 02:20 BUN/Creatinine Ratio 21.3 (10-20) H 02/21/22 02:20 Glucose 113 mg/dl (70-99(Fasting)) H 02/21/22 02:20 Calcium 9.3 mg/dl (8.5-10.1) 02/21/22 02:20 Total Bilirubin 0.3 mg/dl (0.2-1.0) 02/21/22 02:20 AST 11 U/L (13-39) L 02/21/22 02:20 ALT < 3 U/L (7-52) L 02/21/22 02:20 Alkaline Phosphatase 110 U/L (34-104) H 02/21/22 02:20 C-Reactive Protein 4.55 mg/dl (0-0.5) H 02/21/22 02:20 Total Protein 8.0 gm/dl (6.0-8.3) 02/21/22 02:20 Albumin 3.7 gm/dl (3.4-5.0) 02/21/22 02:20 Globulin 4.3 gm/dl (2.5-4.0) H 02/21/22 02:20 Albumin/Globulin Ratio 0.9 (0.9-2) 02/21/22 02:20 SARS-CoV-2, RNA, NAAT NEGATIVE (NEGATIVE) 02/21/22 04:30 Code Status & VTE Plan VTE Prophylaxis Plan VTE Prophylaxis will be ordered: Yes
--- NOTE | 2022-02-21 06:36 | XRay Report ---
XR ankle RT min 3V routine CLINICAL HISTORY: with pain. COMPARISON: None FINDINGS: Alignment of the right ankle is anatomic. There is no acute fracture. Talar dome is intact . Irregularity of the medial condyle is chronic. Vascular calcification is incidentally noted. There is mild tibiotalar joint osteoarthritis. IMPRESSION: 1. No acute fracture or dislocation within the right ankle. 2. Mild tibiotalar joint osteoarthritis. ACT 112: Negative or not required by law. Electronically signed by: Jose Alberto Hoang M.D. 02/21/2022 6:34 AM
[2022-02-21 06:39] LABS: Uric Acid 4.9 mg/dl (2.6-7.2)
[2022-02-21] MEDS ORDERED: PROMETHAZINE HCL 12.5 MG in SODIUM CHLORIDE 0.9% 50 ML IV PRN (06:39)
[2022-02-21] MEDS ORDERED: ACETAMINOPHEN 325 MG TAB PO PRN (06:39)
[2022-02-21] MEDS ORDERED: MoRPHine SULFATE 4 MG/ML 1 ML CARP\\VIAL IV PRN (06:39)
[2022-02-21] MEDS ORDERED: TRIAMCINOLONE ACET 40 MG/ML VIAL IA ONE (06:46)
[2022-02-21] MEDS ORDERED: BUPIVACAINE/EPINEPHRINE 0.25% 1:200,000 30 ML VIAL INFIL ONE (06:46)
[2022-02-21] MEDS ORDERED: PANTOprazole 40 MG TAB PO PRN (06:47)
--- NOTE | 2022-02-21 06:55 | Orthopedic Consultation ---
Date of Service February 21, 2022 Assessment & Plan (1) Gout of right ankle: It appears to be a gouty attack to the right ankle. We are still awaiting uric acid levels which are pending. He is on his rifampin. I restart his Ancef. I do not want him to miss any of his Ancef dosing. I ordered up a cortisone injection for his right ankle. My PA will give him a right ankle cortisone injection sometime this morning. He can be weightbearing as tolerated. When his ankle is feeling better he is orthopedically stable for discharge to home. However, I did notice his abnormal liver function test. He is on the rifampin. I am hoping that the medical team is able to give some advice, versus reconnecting with infectious disease regarding his abnormal liver function tests and the fact he is on the rifampin. I would like to continue the rifampin if possible but I would like some guidance from infectious disease on how long the rifampin should be continued. History of Present Illness Reason for Consultation: Gout attack right ankle. Requesting Physician: . Attending Physician: Jerome Morrison MD Dax is a 71-year-old male who underwent an open I&D of his left hip about 3 weeks ago. He is doing fairly well with his left hip. He is on IV Ancef and oral rifampin. He is not having much left hip pain. Unfortunately, yesterday began having right ankle pain. It became quite severe and he was unable to ambulate. He has a history of gout in the right ankle in the past. He came to the hospital and was admitted for observation. Orthopedics was consulted to evaluate and treat. Allergies Allergy/AdvReac Type Severity Reaction Status Date / Time ibuprofen AdvReac Mild NASAL Verified 02/21/22 02:23 STUFFINESS Home Medications Medication Instructions Recorded Confirmed Type losartan 50 mg-hydrochlorothiazide 1 tab PO QAM 09/02/18 02/21/22 History 12.5 mg tablet albuterol sulfate 90 mcg/actuation 1 puff INHALATION Q6H PRN 09/03/18 02/21/22 History aerosol inhaler omeprazole 20 mg capsule,delayed 20 mg PO QAM PRN 09/03/18 02/21/22 History release meloxicam 15 mg tablet 15 mg PO QAM 11/17/21 02/21/22 History aspirin 81 mg tablet,delayed 81 mg PO BID #84 tab 01/05/22 02/21/22 Rx release (Adult Aspirin Regimen) atorvastatin 40 mg tablet 40 mg PO DAILY 01/28/22 02/21/22 History rifampin 300 mg capsule 300 mg PO Q12H #84 cap 02/02/22 02/21/22 Rx Lactobacillus acidophilus 10 20,000 mmu cells PO DAILY 02/21/22 02/21/22 History billion cell capsule (Probiotic) cefazolin 1 gram/50 mL in dextrose 0 ml IV Q8H 02/21/22 02/21/22 History (iso-osmotic) intravenous piggyback multivitamin with iron 1 tab PO DAILY 02/21/22 02/21/22 History Past Med/Surg History Medical History Asthma Very well controlled > rare res inh use GERD (gastroesophageal reflux disease) Well controlled and stable Gout No recent issues Hyperlipidemia Hypertension 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 BIGEMINY NOTED ON MONITOR ONCE-- EVALUATED BY DR YARBROUGH 2015. ECHO WNL. PT ASYMPTOMATIC. Restless legs Stable Surgical History History of adenoidectomy History of cataract surgery RIGHT AND LEFT History of colonoscopy History of discectomy LUMBAR AREA (X3 SURGERIES WITHIN 21 DAYS) WITH REVISIONS DUE TO DURA BEING CUT DURING FIRST SURGERY L4-5 History of endoscopic sinus surgery History of esophagogastroduodenoscopy (EGD) History of herniorrhaphy UMBILICAL History of tonsillectomy History of tooth extraction History of total shoulder replacement RIGHT - [facility] Hx of thumb surgery right Social History Smoking Status: Never smoker Second Hand Exposure: No; Hx Alcohol Use: Yes Alcohol type: beer Hx Substance Use: No Preferred Language: Polish Communication Ability: Effective [employer] Architect Required: No Beliefs That Will Affect Care: None marital status: Current Living Situation: Spouse Other Information That Helps Us Care for You: No Feels Safe at Home: Yes Safety Concerns: Feels Safe At This Time Assistive Devices: Glasses Review of Systems All systems reviewed & are unremarkable except as noted in HPI & below. Physical Exam On physical examination of the right ankle, there is a lot of swelling. There are no abrasions, lesions, or lacerations of the skin. He has minimal range of motion of the ankle mostly secondary to pain. Constitutional WD/WN, vitals as above Eyes PERRL, conjunctivae normal, anicteric sclerae ENMT external ear and nose normal, oropharynx normal Neck trachea midline, no thyromegaly Respiratory normal respiratory effort Cardiovascular RRR, no murmur, no edema Gastrointestinal (Abdomen) normal bowel sounds, soft, nontender, no hepatosplenomegaly Psychiatric A+Ox3, euthymic affect Results & Data Results & Data Laboratory Results . Diagnostic Findings X-rays of the right ankle show very mild arthritis. There is no evidence of fracture. PG Care Time/CCT Total # of Minutes Spent Total Time Spent with Patient: Total time spent is greater than 50% in coordination of care (as documented) at patient's floor/unit and/or counseling patient: Coding Level of Care Code 62120 Inpt Consult Level 4 (25 - SIGNIFICANT, SEPARATELY IDENTIFIABLE ) Diagnoses Gout of right ankle M10.9
[2022-02-21] MEDS ORDERED: ceFAZolin 1000MG 1,000 MG/7.5 ML SYR IV SCH (07:00)
[2022-02-21] MEDS: oxyCODONE HCL IR 5 MG TAB (IMMEDIATE RELEASE) PO PRN (07:26)
[2022-02-21 07:36] LABS: Estimated Average Glucose 114 mg/dl; Hemoglobin A1C 5.6 % (4.5-5.6)
[2022-02-21] MEDS: ceFAZolin 2000MG 2,000 MG/15 ML SYR IV SCH ×3 (07:39→23:32)
--- NOTE | 2022-02-21 08:09 | XRay Report ---
XR foot RT min 3V routine CLINICAL HISTORY: swelling. No history of injury COMPARISON STUDY: No previous studies for comparison. TECHNIQUE: 4 right foot views FINDINGS: Bones: There is no evidence for an acute fracture or dislocation. There is no lytic or blastic lesion . Joints: The joint spaces are maintained. The bones are in anatomic alignment. Soft tissues: There is mild diffuse soft tissue swelling. There is no radiopaque foreign body. IMPRESSION: 1. No acute osseous pathology. 2. Mild diffuse soft tissue swelling. ACT 112: Negative or not required by law. Electronically signed by: Sean Reed M.D. 02/21/2022 8:07 AM
[2022-02-21] MEDS: ATORVASTATIN 40 MG TAB PO SCH (08:50)
[2022-02-21] MEDS: CEROVITE ADV FORMULA TAB PO SCH (08:50)
[2022-02-21] MEDS: ASPIRIN 81 MG ECTAB PO SCH ×2 (08:50→20:47)
[2022-02-21] MEDS ORDERED: BUPIVACAINE 0.5 % 5 MG/1 ML MPF 30ML VIAL INFIL ONE (09:00)
[2022-02-21] MEDS ORDERED: CONSULT PHARMACY PRN (09:00)
[2022-02-21] MEDS: rifAMPin 300 MG CAPSULE PO SCH ×2 (09:31→20:47)
[2022-02-21] MEDS: LOSARTAN POTASSIUM 50 MG TAB PO SCH (09:31)
[2022-02-21] MEDS: ADVANCED PROBIOTIC 1250 MG CAPSULE PO SCH (09:31)
--- NOTE | 2022-02-21 17:45 | Communication Note ---
Date of Service: February 21, 2022 Patient seen and examined at bedside. Admitted earlier this morning (see H&P note for details). 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 Has h/o gout x1 in the past but not on any maintenance meds- does take NSAIDs (meloxicam) daily. Seen by ortho and his right ankle was injected with steroids. Uric acid normal. Also received prednisone on admission. Still complaining of significant pain. Will monitor for improvement. Might need steroid course and PT eval. Check labs in am. Will follow.
[2022-02-22] MEDS: oxyCODONE HCL IR 5 MG TAB (IMMEDIATE RELEASE) PO PRN (00:26)
[2022-02-22 06:00] LABS: Basophils # (auto) 0.01 K/uL (0-0.2); Basophils % (auto) 0.1 %; Eosinophils # (auto) 0.09 K/uL (0-0.5); Eosinophils % (auto) 0.8 %; Hematocrit (blood only) 32.2 % (42-52); Hemoglobin 10.3 g/dL (14.0-18.0); Immature Granulocytes # (auto) 0.02 K/uL (0.00-0.02); Immature Granulocytes % (auto) 0.2 %; Lymphocytes # (auto) 1.36 K/uL (1.2-3.4); Lymphocytes % (auto) 11.8 %; Mean Corpuscular Hemoglobin 29.1 pg (25-34); Mean Platelet Volume 10.1 fL (7.4-10.4); Monocytes # (auto) 1.25 K/uL (0.11-0.59); Monocytes % (auto) 10.8 %; Neutrophils % (auto) 76.3 %; Platelet Count 383 K/uL (130-400); RDW Coefficient of Variation 13.2 % (11.5-14.5); RDW Standard Deviation 44.1 fL (36.4-46.3); Red Blood Count 3.54 M/uL (4.7-6.1); White Blood Count 11.53 K/uL (4.8-10.8)
[2022-02-22 06:29] LABS: Anion Gap 8 (3-11); Blood Urea Nitrogen 17 mg/dl (6-23); Calcium 9.2 mg/dl (8.5-10.1); Carbon Dioxide 27 mmol/L (21-32); Chloride 102 mmol/L (98-107); Creatinine Clr Calc Pharmacy 120.4 ml/min; Est GFR (African American) 102.9 ml/min; Est GFR (Non-African American) 88.8 ml/min; Glucose 110 mg/dl (70-99(Fasting)); Potassium 4.1 mmol/L (3.5-5.1); Sodium 137 mmol/L (136-145)
[2022-02-22 06:31] LABS: Alanine Aminotransferase < 3 U/L (7-52); Albumin Level 3.8 gm/dl (3.4-5.0); Alkaline Phosphatase 89 U/L (34-104); Aspartate Aminotransferase 10 U/L (13-39); Bilirubin,Total 0.3 mg/dl (0.2-1.0); Total Protein 8.1 gm/dl (6.0-8.3)
--- NOTE | 2022-02-22 06:59 | Orthopedic Progress Note ---
Date of Service February 22, 2022 Assessment & Plan (1) Gout of right ankle: Dax has a history of gout in his ankle before. Clinically this appears to be a gout attack. His uric acid levels were normal. I do not see any signs of infection around the right ankle and that would be exceedingly rare. His white blood cell count is a little bit elevated. His sed rate and CRP are elevated which would be expected in the setting of a gout attack. He is also dealing with the infection of his left hip. He has been on rifampin and IV Ancef for that. Fortunately his ankle is starting to feel little bit better. He is on Mobic as an anti-inflammatory. We have been holding off on any oral st eroids due to the infection around his left hip. I think he is orthopedically stable for discharge when medically ready. I am hopeful the medicine team can comment on his liver function tests with regards to his rifampin. Subjective Dax was seen and examined at bedside this morning. Overall he is doing a little bit better. He still has some swelling and pain in the ankle but it is not a constant pain. He is able to put a little bit of weight on it. Review of Systems All systems reviewed & are unremarkable except as noted in HPI & below. Physical Exam On physical examination of the right ankle, there is still some swelling in the area. There is no signs of infection. He does have a little bit of nonpainful motion of the ankle with dorsiflexion plantarflexion but he certainly does not have full range. Results & Data Results & Data Laboratory Results . Diagnostic Findings . PG Care Time/CCT Total # of Minutes Spent Total Time Spent with Patient: Total time spent is greater than 50% in coordination of care (as documented) at patient's floor/unit and/or counseling patient: Coding Level of Care Code 63167 Subseq Hosp Care Lvl 2 (25 - SIGNIFICANT, SEPARATELY IDENTIFIABLE ) Diagnoses Gout of right ankle M10.9
[2022-02-22 07:37] VITALS: BP 131/77; TEMP 97.5; O2SAT 95
[2022-02-22] MEDS: ceFAZolin 2000MG 2,000 MG/15 ML SYR IV SCH ×2 (08:38→15:24)
[2022-02-22] MEDS: LOSARTAN POTASSIUM 50 MG TAB PO SCH (08:38)
[2022-02-22] MEDS: rifAMPin 300 MG CAPSULE PO SCH (08:38)
[2022-02-22] MEDS: ADVANCED PROBIOTIC 1250 MG CAPSULE PO SCH (08:38)
[2022-02-22] MEDS: ASPIRIN 81 MG ECTAB PO SCH (08:39)
[2022-02-22] MEDS: ATORVASTATIN 40 MG TAB PO SCH (08:39)
[2022-02-22] MEDS: CEROVITE ADV FORMULA TAB PO SCH (08:39)
[2022-02-22] MEDS ORDERED: MELOXICAM 7.5 MG TAB PO SCH (09:00)
--- NOTE | 2022-02-22 12:38 | Discharge Summary ---
Date of Service February 22, 2022 Admission HPI Per Admitting Provider History obtained from patient and records. Medical history significant for chronic diastolic heart failure (EF 55 to 60%, TTE 2021), hypertension, hyperlipidemia, asthma, gout, pseudomeningocele as per records, prosthetic joint infection left hip ongoing Ancef and rifampin Rx, past tobacco abuse. Last confinement 2 weeks ago under Orthopedics service for prosthetic joint infection left hip status post surgery. Methicillin sensitive staph aureus on CS. Patient discharged on Ancef and rifampin course as per [facility] [place]. 2 days ago, patient noted tingling pain at his left Achilles heel. No recollection of trauma. Yesterday, pain and swelling develop over right Achilles heel spreading to the foot. No fever, no chills, no chest pain, no SOB. Episode somewhat different from his usual gout attack. Patient brought to ER by for evaluation. 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 Admission Exam Per Admitting Provider GENERAL: Comfortable, obese, pleasant, no respiratory distress SKIN: Pallor, warm HEENT: Pale palpebral conjunctivae, no ptosis, dry buccal mucosa NECK : Supple, no tenderness CHEST : CTA, no tenderness HEART : RRR, no obvious murmurs ABDOMEN: Some distention, nontender EXTREMITIES : Minimal left hip tenderness, minimal left posterior ankle tenderness, right ankle swelling extending to the midfoot with minimal tenderness NEUROLOGIC : Coherent, no facial asymmetry, gait and stance not assessed Principal Diagnosis Suspected right ankle gout Discharge Exam General: Lying comfortably in bed, not in distress, on room air HEENT: EOMI, LIZETTE, MMM Chest: Clear breath sounds bilaterally, no wheezes or crackles CVS: Regular rate and rhythm, normal heart sounds, no murmur Abdomen: Soft, non tender, not distended, normal bowel sounds Neuro: Awake, alert, oriented, conversing well, non focal Extremities: Right ankle tenderness improved from yesterday, minimal warmth, no erythema. Discharge Data Allergies Allergy/AdvReac Type Severity Reaction Status Date / Time ibuprofen AdvReac Mild NASAL Verified 02/21/22 02:23 STUFFINESS Consultations 02/21/22 04:25 ED Decision to Admit Stat 02/21/22 05:26 Consult Orthopedic Surgery Routine Ordered Studies Laboratory Results WBC 11.53 K/uL (4.8-10.8) H 02/22/22 05:12 RBC 3.54 M/uL (4.7-6.1) L 02/22/22 05:12 Hgb 10.3 g/dL (14.0-18.0) L 02/22/22 05:12 Hct 32.2 % (42-52) L 02/22/22 05:12 MCV 91.0 fL (80-100) 02/22/22 05:12 MCH 29.1 pg (25-34) 02/22/22 05:12 MCHC 32.0 g/dL (32-36) 02/22/22 05:12 RDW Std Deviation 44.1 fL (36.4-46.3) 02/22/22 05:12 RDW Coeff of Melanie 13.2 % (11.5-14.5) 02/22/22 05:12 Plt Count 383 K/uL (130-400) 02/22/22 05:12 MPV 10.1 fL (7.4-10.4) 02/22/22 05:12 Immature Gran % (Auto) 0.2 % 02/22/22 05:12 Neut % (Auto) 76.3 % 02/22/22 05:12 Lymph % (Auto) 11.8 % 02/22/22 05:12 [place] % (Auto) 10.8 % 02/22/22 05:12 Eos % (Auto) 0.8 % 02/22/22 05:12 Baso % (Auto) 0.1 % 02/22/22 05:12 Neut # (Auto) 8.80 K/uL (1.4-6.5) H 02/22/22 05:12 Lymph # (Auto) 1.36 K/uL (1.2-3.4) 02/22/22 05:12 [place] # (Auto) 1.25 K/uL (0.11-0.59) H 02/22/22 05:12 Eos # (Auto) 0.09 K/uL (0-0.5) 02/22/22 05:12 Baso # (Auto) 0.01 K/uL (0-0.2) 02/22/22 05:12 Immature Gran # (Auto) 0.02 K/uL (0.00-0.02) 02/22/22 05:12 Rouleaux 1+ 02/21/22 02:20 ESR 79 mm/hr (0-20) H 02/22/22 05:12 Sodium 137 mmol/L (136-145) 02/22/22 05:12 Potassium 4.1 mmol/L (3.5-5.1) 02/22/22 05:12 Chloride 102 mmol/L (98-107) 02/22/22 05:12 Carbon Dioxide 27 mmol/L (21-32) 02/22/22 05:12 Anion Gap 8 (3-11) 02/22/22 05:12 BUN 17 mg/dl (6-23) 02/22/22 05:12 Creatinine 0.81 mg/dl (0.6-1.4) 02/22/22 05:12 Est Cr Clr Drug Dosing 120.4 ml/min 02/22/22 05:12 Est GFR ( Amer) 102.9 ml/min 02/22/22 05:12 Est GFR (Non-Af Amer) 88.8 ml/min 02/22/22 05:12 BUN/Creatinine Ratio 21.0 (10-20) H 02/22/22 05:12 Glucose 110 mg/dl (70-99(Fasting)) H 02/22/22 05:12 Estimat Average Glucose 114 mg/dl 02/21/22 02:20 Hemoglobin A1c 5.6 % (4.5-5.6) 02/21/22 02:20 Uric Acid 4.9 mg/dl (2.6-7.2) 02/21/22 02:20 Calcium 9.2 mg/dl (8.5-10.1) 02/22/22 05:12 Total Bilirubin 0.3 mg/dl (0.2-1.0) 02/22/22 05:12 Direct Bilirubin 0.0 mg/dl (0-0.2) 02/22/22 05:12 AST 10 U/L (13-39) L 02/22/22 05:12 ALT < 3 U/L (7-52) L 02/22/22 05:12 Alkaline Phosphatase 89 U/L (34-104) 02/22/22 05:12 Total Creatine Kinase 54 U/L (30-223) 02/21/22 02:20 C-Reactive Protein 9.30 mg/dl (0-0.5) H 02/22/22 05:12 Total Protein 8.1 gm/dl (6.0-8.3) 02/22/22 05:12 Albumin 3.8 gm/dl (3.4-5.0) 02/22/22 05:12 Globulin 4.3 gm/dl (2.5-4.0) H 02/21/22 02:20 Albumin/Globulin Ratio 0.9 (0.9-2) 02/21/22 02:20 SARS-CoV-2, RNA, NAAT NEGATIVE (NEGATIVE) 02/21/22 04:30 Impressions Ankle X-Ray 02/21/22 05:12 XR ankle RT min 3V routine CLINICAL HISTORY: with pain. COMPARISON: None FINDINGS: Alignment of the right ankle is anatomic. There is no acute fracture. Talar dome is intact. Irregularity of the medial condyle is chronic. Vascular calcification is incidentally noted. There is mild tibiotalar joint osteoarthritis. IMPRESSION: 1. No acute fracture or dislocation within the right ankle. 2. Mild tibiotalar joint osteoarthritis. ACT 112: Negative or not required by law. Electronically signed by: Jose Alberto Hoang M.D. 02/21/2022 6:34 AM Foot X-Ray 02/21/22 05:12 XR foot RT min 3V routine CLINICAL HISTORY: swelling. No history of injury COMPARISON STUDY: No previous studies for comparison. TECHNIQUE: 4 right foot views FINDINGS: Bones: There is no evidence for an acute fracture or dislocation. There is no lytic or blastic lesion. Joints: The joint spaces are maintained. The bones are in anatomic alignment. Soft tissues: There is mild diffuse soft tissue swelling. There is no radiopaque foreign body. IMPRESSION: 1. No acute osseous pathology. 2. Mild diffuse soft tissue swelling. ACT 112: Negative or not required by law. Electronically signed by: Sean Reed M.D. 02/21/2022 8:07 AM Hospital Course (1) Gout of right ankle: (2) Prosthetic joint infection of left hip: Suspected acute gout right ankle- seen by ortho and s/p steroid injection right ankle yesterday. Some improvement in pain today. Per ortho, avoiding oral steroids due to his infection. Patient takes Mobic daily at home. Uric acid normal. Inflammatory markers elevated. Discharging on some percocet for pain- PDMP reviewed- no red flag signs identified. 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 Also on rifampin. - LFTs not elevated. Continue iv ancef and rifampin to complete the antibiotic course along with weekly labs- will need chronic ABx suppression after IV ABx done. - Further management per ID and ortho. Essential HTN- continue losartan HCTZ H/o Asthma- stable, no exacerbation. On albuterol prn Cleared for discharge home by ortho. Seen by PT. Alessio renee. He wanted me to call his son Dr Fontana [phone] (called x2 and was disconnected). He would like to go home. He is stable for discharge. Total Time Total Time Spent Total Time Spent (In Minutes): 40 Discharge Plan Discharge Items Patient Disposition: Home - Home Health Services Reason For Visit: R ANKLE/FOOT PAIN Discharge Diagnosis: Suspected right ankle gout Activity: Per Instructions section Non-emergency contact: Primary Care Provider Call non-emergency contact if: you have any medication questions, your symptoms worsen, your pain is not controlled and you have a fever Follow-up/Referrals: Melquiades Persaud MD [Primary Care Provider] - (Date & Time 02/27/2022 10:20 AM Provider Phoebe Kelley MD Department General Internal Medicine [facility] ) Diet: Regular Addtl Attending Provider Instructions: You had steroid injection of the right ankle. You can take oxycodone as needed for pain. If the pain does not improve in the next few days or you have fever or redness, call your orthopedic doctor or come to the emergency Continue the antibiotics ancef and rifampin along with weekly blood work Pending Studies at Discharge: No Stand-Alone Forms: My [employer], Smoking Cessation Medications and DC Order Prescriptions: New oxycodone-acetaminophen [Percocet] 5-325 mg tablet 1 tab PO Q8H PRN (Reason: pain) 7 Days Qty: 20 RF: 0 Continued losartan-hydrochlorothiazide 50-12.5 mg Tablet 1 tab PO QAM RF: 0 omeprazole 20 mg Capsule,Delayed Release(Dr/Ec) 20 mg PO QAM PRN (Reason: Heartburn) RF: 0 albuterol sulfate 90 mcg/actuation Hfa Aerosol Inhaler 1 puff INHALATION Q6H PRN (Reason: Wheezing) RF: 0 cefazolin in dextrose (iso-os) [Ancef in dextrose (iso-osm)] 1 gram/50 mL Piggyback 0 ml IV Q8H RF: 0 multivitamin with iron Tablet 1 tab PO DAILY RF: 0 Probiotic 10 billion cell Capsule 20,000 mmu cells PO DAILY RF: 0 meloxicam 15 mg Tablet 15 mg PO QAM RF: 0 aspirin [Adult Aspirin Regimen] 81 mg tablet,delayed release (DR/EC) 81 mg PO BID Qty: 84 RF: 0 atorvastatin 40 mg tablet 40 mg PO DAILY RF: 0 rifampin 300 mg capsule 300 mg PO Q12H Qty: 84 RF: 0 Discharge Orders: Discharge Order (Routine); Ordered 02/22/22 Ordered By: Jerome Morrison Admission Data Admit Date/Time: 02/21/22 05:21 Attending Provider: Jerome Morrison Admit Provider: Sergio Arellano Primary Care Provider: Melquiades Persaud Other Providers: Sergio Arellano ; Lul Jordan
[2022-02-22 14:38] VITALS: PULSE 82
== END 2022-02-22 16:12 | disposition home health service (06) ==
LOC: 1E 01:38 → ED 01:38 → 1E 05:58 → 3W 02-22 00:22

== ENCOUNTER 2023-04-13 13:37 | Inpatient (IN) ==
[2023-04-13 14:39] LABS: Basophils # (auto) 0.05 K/uL (0-0.2); Basophils % (auto) 0.6 %; Eosinophils # (auto) 0.36 K/uL (0-0.50); Eosinophils % (auto) 4.4 %; Hematocrit (blood only) 34.2 % (42.0-52.0); Hemoglobin 11.9 g/dl (14.0-18.0); Immature Granulocytes # (auto) 0.04 K/uL (0.01-0.20); Immature Granulocytes % (auto) 0.5 %; Lymphocytes # (auto) 1.92 K/uL (1.2-3.4); Lymphocytes % (auto) 23.2 %; Mean Corpuscular Hemoglobin 31.6 pg (25.0-34.0); Mean Corpuscular Hgb Conc 34.8 g/dL (32.0-36.0); Mean Corpuscular Volume 90.7 fL (80.0-100.0); Monocytes # (auto) 0.75 K/uL (0.11-0.59); Monocytes % (auto) 9.1 %; Neutrophils # (auto) 5.14 K/uL (1.40-6.50); Neutrophils % (auto) 62.2 %; Platelet Count 231 K/uL (130-400); RDW Coefficient of Variation 12.7 % (11.5-14.5); RDW Standard Deviation 41.6 fL (36.4-46.3); Red Blood Count 3.77 M/uL (4.70-6.10); White Blood Count 8.26 K/ul (4.8-10.8)
[2023-04-13 14:55] LABS: Albumin Level 4.2 gm/dl (3.4-5.0); Calcium 9.8 mg/dl (8.6-10.3); Creatinine Clr Calc Pharmacy 97.4 ml/min; Potassium 3.8 mmol/L (3.5-5.1)
[2023-04-13] MEDS ORDERED: SODIUM CHLORIDE 0.9% 1000ML 1,000 ML IV ONE (14:59)
[2023-04-13] MEDS ORDERED: PANTOprazole 80 MG in DEXTROSE 5% 100 ML IV STA (15:01)
[2023-04-13 15:03] LABS: Albumin Globulin Ratio 1.5 (0.9-2); BUN Creatinine Ratio 67.7 (10-20); Bilirubin,Total 0.5 mg/dl (0.2-1.0); Est GFR (African American) 90.5 ml/min; Est GFR (Non-African American) 78.1 ml/min; Globulin 2.8 gm/dl (2.5-4.0); Magnesium 1.7 mg/dl (1.7-2.4)
[2023-04-13 15:10] LABS: Troponin I High Sensitivity 7.3 pg/ml (0-20)
--- NOTE | 2023-04-13 15:31 | XRay Report ---
XR chest 1V portable HISTORY: Chest pain, nonspecific COMPARISON: Chest 02/02/2022. FINDINGS: No pneumothorax. No pleural effusions. The cardiac silhouette is borderline enlarged. No ev idence for pulmonary edema. A right shoulder prosthesis. Questionable 9 mm nodular density within the right midlung zone. IMPRESSION: 1. No acute process within the chest. 2. Questionable 9 mm nodule within the right midlung zone. This could represent a nipple shadow. Foll ow-up nonemergent PA and lateral views of the chest are recommended for further evaluation. ACT 112: Positive. There are findings on this exam that require communication between the performing entity and the patient following Patient Test Result Information Act ([place] Act 112) guidelines. Electronically signed by: Aníbal Soares M.D. 04/13/2023 3:30 PM
--- NOTE | 2023-04-13 15:38 | Emergency Department Note ---
Impression & Plan SOB (shortness of breath), History of GI bleed, Near syncope, Tachycardia, Anemia, Elevated BUN ED Provider Note NAME: JACOB BELL AGE: 72 SEX: M : 1950 ARRIVES VIA: Walk-In INFORMANT: [Patient][] ED PROVIDER(S): [True Hogan MD] CHIEF COMPLAINT: Shortness of breath HISTORY OF PRESENT ILLNESS: The patient is a 72-year-old male who states that he has a previous GI bleed history. He is currently on meloxicam and takes nothing for his stomach. A few days ago he was quite sweaty when he was outside but that seemed to resolve with rest and he felt better the next day. Today, he felt very dizzy to stand and short of breath. He feels bloated. The bloating actually started last night and continued into today. The patient states that he has been sweating with all of this. No fever. He does have a slight cough. No chest pain. As per the patient's , the patient's heart rate increased and his blood pressure decreased when he stood. The patient states his symptoms of shortness of breath and dizziness are only present with standing. He feels fine at rest. The patient has not noticed any black or bloody stool. He has no appetite. He has not vomited. He did attempt to induce vomiting but was unsuccessful. PMHx/PSHx: See Below SOCIAL HISTORY: See Below. PHYSICAL EXAM: GENERAL: Patient is in no acute distress. HEENT: No acute trauma, normocephalic atraumatic, mucous membranes moist, no nasal congestion. NECK: No stridor, no adenopathy, no meningismus, trachea is midline. LUNGS: Clear to auscultation bilaterally, no wheeze, no rhonchi, breath sounds equal. HEART: Mildly tachycardic with occasional extra beats, no murmurs. ABDOMEN: Soft, nontender, bowel sounds positive, no peritonitis. EXTREMITIES: No cyanosis, mild bilateral pedal edema, full range of motion of all the joints without pain or difficulty, no signs for acute trauma. NEUROLOGIC: Oriented x 3, no acute motor or sensory deficits, no focal weakness. SKIN: No rash, no jaundice, mild diaphoresis. Rectal: Brown stool, heme-negative. DIFFERENTIAL DIAGNOSIS: GI bleeding, dehydration, bowel obstruction, dysrhythmia, OH, anemia, electrolyte imbalance, viral illness, UTI, among others. EMERGENCY DEPARTMENT COURSE/PROCEDURES: Prior/Outside records reviewed: None. ECG per my interpretation: Indication was shortness of breath. The ECG shows a sinus tachycardia with frequent PVCs. The rate is 108. There is no ST elevation. There is some poor R wave progression. The QTc is 452. Continuous Cardiac Monitoring per my interpretation: An order was placed for continuous cardiac monitoring. The monitor shows a rate of 84 with normal sinus rhythm. Critical Care Note: I have personally spent 52 minutes of critical care time in the direct management of this patient. This includes bedside care, interpretation of diagnostic studies, and testing, discussion with consultants, patient, and family members, and other required patient management activities. This 52 minutes is in excess of all separately billable procedures. MEDICAL DECISION MAKING: There is no leukocytosis. The patient is anemic with a hemoglobin of 11.9. As per his , his hemoglobin had been running in the 14-15 range, thus, this is a significant drop for him. There was a normal platelet count. No coagulopathy. No renal failure. BUN was high consistent with potential upper GI bleeding. No renal failure. No concerning liver enzyme elevation. COVID test returned negative. ECG showed a sinus tachycardia, no ischemia. Cardiac enzyme testing x1 is not consistent with acute cardiac injury. Chest film did not show mediastinal widening, pneumonia or pneumothorax per my review. Abdominal and pelvis CT showed some esophagitis, no source for intra-abdominal bleeding. There was no findings of bowel obstruction. The patient received IV saline, 1 L. He received IV Protonix for the possibility of upper GI bleeding. The patient is resting comfortably and feeling improved. He does still feel symptoms though when he stands. I do believe the patient requires a hospital stay. He needs his hemoglobin trended. I am concerned about upper GI bleeding as noted above. I did speak with case management, the on-call hospitalist was consulted. I spoke with the patient and his . They are aware of my concerns and share the same concern. The patient's son is a compensation and benefits administrator and he did review the laboratory testing and also, has concerns for GI bleeding. DISPOSITION: Patient's presentation and findings warrant a hospital stay and further work-up. 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 BIGEMINY NOTED ON MONITOR ONCE-- EVALUATED BY DR YARBROUGH 2014. ECHO WNL. PT ASYMPTOMATIC. Restless legs Stable Symptomatic anemia Surgical History History of adenoidectomy History of cataract surgery RIGHT AND LEFT History of colonoscopy History of discectomy LUMBAR AREA (X3 SURGERIES WITHIN 21 DAYS) WITH REVISIONS DUE TO DURA BEING CUT DURING FIRST SURGERY L4-5 History of endoscopic sinus surgery History of esophagogastroduodenoscopy (EGD) History of herniorrhaphy UMBILICAL History of tonsillectomy History of tooth extraction History of total shoulder replacement RIGHT - [facility] Hx of thumb surgery right Social History Smoking Status: Former smoker Second Hand Exposure: No; Do You Dip or Chew Tobacco: No; Hx Alcohol Use: Yes Alcohol type: beer Hx Substance Use: No Preferred Language: Monegasque Communication Ability: Effective Promotions Team Leader Required: No Beliefs That Will Affect Care: None marital status: Current Living Situation: Spouse Feels Safe at Home: Yes Assistive Devices: Walker Allergies Allergies Allergy/AdvReac Type Severity Reaction Status Date / Time ibuprofen AdvReac Mild NASAL Verified 04/13/23 17:03 STUFFINESS Home Meds Home Medications Medication Instructions Recorded Confirmed albuterol sulfate 90 mcg/actuation 1 puff inhalation Q6H PRN Wheezing 09/03/18 04/13/23 aerosol inhaler meloxicam 15 mg tablet 15 mg PO QAM 11/17/21 04/13/23 atorvastatin 40 mg tablet 40 mg PO DAILY 01/28/22 04/13/23 acetaminophen 500 mg tablet 500 mg PO BID PRN Pain 04/13/23 04/13/23 losartan 100 1 tab PO QAM 04/13/23 04/13/23 mg-hydrochlorothiazide 12.5 mg tablet Results & Data (ED) Vital Signs Vital Signs - 24 hr 04/13/23 14:02 04/13/23 14:06 04/13/23 14:56 Temperature 37.0 C Temperature Source Skin Pulse Rate 130 H 92 H Pulse Rate [Finger] Pulse Rate from SpO2 Sensor Respiratory Rate 20 Respiratory Effort / Characteristics Non-Labored Spontaneous Labored Respiratory Depth Normal Retractive Respiratory Pattern Regular Tachypnea Blood Pressure 100/65 Blood Pressure [Right Arm] Blood Pressure Mean 76 Blood Pressure Mean [Right Arm] Pulse Oximetry 99 Oxygen Delivery Method Room Air Sepsis Recent Fever Within 48 Hours No Sepsis New/Unexplained Change in Mental Status N/A Sepsis Action Taken by Nursing No Action Required 04/13/23 15:34 04/13/23 15:34 04/13/23 15:34 Temperature Temperature Source Pulse Rate Pulse Rate [Finger] 84 Pulse Rate from SpO2 Sensor Respiratory Rate 16 Respiratory Effort / Characteristics Respiratory Depth Respiratory Pattern Blood Pressure Blood Pressure [Right Arm] 132/83 Blood Pressure Mean Blood Pressure Mean [Right Arm] 99 Pulse Oximetry 93 Oxygen Delivery Method Room Air Room Air Sepsis Recent Fever Within 48 Hours Sepsis New/Unexplained Change in Mental Status Sepsis Action Taken by Nursing 04/13/23 16:14 04/13/23 19:13 04/13/23 19:00 Temperature Temperature Source Pulse Rate 80 85 Pulse Rate [Finger] 81 Pulse Rate from SpO2 Sensor 66 Respiratory Rate 18 23 Respiratory Effort / Characteristics Respiratory Depth Respiratory Pattern Blood Pressure 133/76 Blood Pressure [Right Arm] 150/97 H Blood Pressure Mean 95 Blood Pressure Mean [Right Arm] 114 Pulse Oximetry 98 99 Oxygen Delivery Method Room Air Sepsis Recent Fever Within 48 Hours Sepsis New/Unexplained Change in Mental Status Sepsis Action Taken by Nursing 04/13/23 19:30 04/13/23 20:00 04/13/23 20:30 Temperature Temperature Source Pulse Rate 76 76 77 Pulse Rate [Finger] Pulse Rate from SpO2 Sensor 75 63 77 Respiratory Rate 20 19 21 Respiratory Effort / Characteristics Respiratory Depth Respiratory Pattern Blood Pressure 124/73 142/79 H 141/79 H Blood Pressure [Right Arm] Blood Pressure Mean 90 100 99 Blood Pressure Mean [Right Arm] Pulse Oximetry 97 97 98 Oxygen Delivery Method Sepsis Recent Fever Within 48 Hours Sepsis New/Unexplained Change in Mental Status Sepsis Action Taken by Group Home Medications Current Medication List: was personally reviewed by me Laboratory Data Attestation: I reviewed the patient's lab results. 04/13/23 14:16 04/13/23 14:16 Lab Results 04/13/23 04/13/23 04/13/23 Range/Units 14:16 14:16 14:16 WBC 8.26 (4.8-10.8) K/ul RBC 3.77 L (4.70-6.10) M/uL Hgb 11.9 L (14.0-18.0) g/dl Hct 34.2 L (42.0-52.0) % MCV 90.7 (80.0-100.0) fL MCH 31.6 (25.0-34.0) pg MCHC 34.8 (32.0-36.0) g/dL RDW Std Deviation 41.6 (36.4-46.3) fL RDW Coeff of Melanie 12.7 (11.5-14.5) % Plt Count 231 (130-400) K/uL MPV 12.0 (9.4-12.4) fL Immature Gran % (Auto) 0.5 % Neut % (Auto) 62.2 % Lymph % (Auto) 23.2 % Holt % (Auto) 9.1 % Eos % (Auto) 4.4 % Baso % (Auto) 0.6 % Neut # (Auto) 5.14 (1.40-6.50) K/uL Lymph # (Auto) 1.92 (1.2-3.4) K/uL Holt # (Auto) 0.75 H (0.11-0.59) K/uL Eos # (Auto) 0.36 (0-0.50) K/uL Baso # (Auto) 0.05 (0-0.2) K/uL Immature Gran # (Auto) 0.04 (0.01-0.20) K/uL PT 11.5 (9.0-12.0) Seconds INR 1.1 (0.9-1.1) APTT 23.9 (21.0-31.0) Seconds PTT Ratio 0.8 D-Dimer (0-500) ug/L FEU Sodium 136 (136-145) mmol/L Potassium 3.8 (3.5-5.1) mmol/L Chloride 103 (98-107) mmol/L Carbon Dioxide 24 (21-32) mmol/L Anion Gap 9 (3-11) BUN 65 H (6-23) mg/dl Creatinine 0.96 (0.6-1.4) mg/dl Est Cr Clr Drug Dosing 97.4 ml/min Est GFR ( Amer) 90.5 ml/min Est GFR (Non-Af Amer) 78.1 ml/min BUN/Creatinine Ratio 67.7 H (10-20) Glucose 141 H (70-99(Fasting)) mg/dl POC Glucose (70-99) mg/dl Calcium 9.8 (8.6-10.3) mg/dl Magnesium 1.7 (1.7-2.4) mg/dl Total Bilirubin 0.5 (0.2-1.0) mg/dl AST 17 (13-39) U/L ALT 22 (7-52) U/L Alkaline Phosphatase 96 (34-104) U/L Troponin I High Sens 7.3 (0-20) pg/ml Total Protein 7.0 (6.0-8.3) gm/dl Albumin 4.2 (3.4-5.0) gm/dl Globulin 2.8 (2.5-4.0) gm/dl Albumin/Globulin Ratio 1.5 (0.9-2) SARS-CoV-2, RNA, NAAT (NEGATIVE) Blood Type Antibody Screen Antibody Identification Antibody ID Comment Crossmatch 04/13/23 04/13/23 04/13/23 Range/Units 14:16 14:39 16:46 WBC (4.8-10.8) K/ul RBC (4.70-6.10) M/uL Hgb (14.0-18.0) g/dl Hct (42.0-52.0) % MCV (80.0-100.0) fL MCH (25.0-34.0) pg MCHC (32.0-36.0) g/dL RDW Std Deviation (36.4-46.3) fL RDW Coeff of Melanie (11.5-14.5) % Plt Count (130-400) K/uL MPV (9.4-12.4) fL Immature Gran % (Auto) % Neut % (Auto) % Lymph % (Auto) % Holt % (Auto) % Eos % (Auto) % Baso % (Auto) % Neut # (Auto) (1.40-6.50) K/uL Lymph # (Auto) (1.2-3.4) K/uL Holt # (Auto) (0.11-0.59) K/uL Eos # (Auto) (0-0.50) K/uL Baso # (Auto) (0-0.2) K/uL Immature Gran # (Auto) (0.01-0.20) K/uL PT (9.0-12.0) Seconds INR (0.9-1.1) APTT (21.0-31.0) Seconds PTT Ratio D-Dimer (0-500) ug/L FEU Sodium (136-145) mmol/L Potassium (3.5-5.1) mmol/L Chloride (98-107) mmol/L Carbon Dioxide (21-32) mmol/L Anion Gap (3-11) BUN (6-23) mg/dl Creatinine (0.6-1.4) mg/dl Est Cr Clr Drug Dosing ml/min Est GFR ( Amer) ml/min Est GFR (Non-Af Amer) ml/min BUN/Creatinine Ratio (10-20) Glucose (70-99(Fasting)) mg/dl POC Glucose 146 H (70-99) mg/dl Calcium (8.6-10.3) mg/dl Magnesium (1.7-2.4) mg/dl Total Bilirubin (0.2-1.0) mg/dl AST (13-39) U/L ALT (7-52) U/L Alkaline Phosphatase (34-104) U/L Troponin I High Sens (0-20) pg/ml Total Protein (6.0-8.3) gm/dl Albumin (3.4-5.0) gm/dl Globulin (2.5-4.0) gm/dl Albumin/Globulin Ratio (0.9-2) SARS-CoV-2, RNA, NAAT NEGATIVE (NEGATIVE) Blood Type O Positive Antibody Screen NEGATIVE Antibody Identification Cancelled Antibody ID Comment Cancelled Crossmatch See Detail 04/13/23 04/13/23 04/13/23 Range/Units 19:28 19:28 19:51 WBC (4.8-10.8) K/ul RBC (4.70-6.10) M/uL Hgb 10.1 L (14.0-18.0) g/dl Hct 29.4 L (42.0-52.0) % MCV (80.0-100.0) fL MCH (25.0-34.0) pg MCHC (32.0-36.0) g/dL RDW Std Deviation (36.4-46.3) fL RDW Coeff of Melanie (11.5-14.5) % Plt Count (130-400) K/uL MPV (9.4-12.4) fL Immature Gran % (Auto) % Neut % (Auto) % Lymph % (Auto) % Holt % (Auto) % Eos % (Auto) % Baso % (Auto) % Neut # (Auto) (1.40-6.50) K/uL Lymph # (Auto) (1.2-3.4) K/uL Holt # (Auto) (0.11-0.59) K/uL Eos # (Auto) (0-0.50) K/uL Baso # (Auto) (0-0.2) K/uL Immature Gran # (Auto) (0.01-0.20) K/uL PT (9.0-12.0) Seconds INR (0.9-1.1) APTT (21.0-31.0) Seconds PTT Ratio D-Dimer 540 H* (0-500) ug/L FEU Sodium 138 (136-145) mmol/L Potassium 3.9 (3.5-5.1) mmol/L Chloride 107 (98-107) mmol/L Carbon Dioxide 26 (21-32) mmol/L Anion Gap 5 (3-11) BUN 59 H (6-23) mg/dl Creatinine 0.93 (0.6-1.4) mg/dl Est Cr Clr Drug Dosing 102.6 ml/min Est GFR ( Amer) 94.1 ml/min Est GFR (Non-Af Amer) 81.2 ml/min BUN/Creatinine Ratio 63.4 H (10-20) Glucose 96 (70-99(Fasting)) mg/dl POC Glucose (70-99) mg/dl Calcium 9.0 (8.6-10.3) mg/dl Magnesium (1.7-2.4) mg/dl Total Bilirubin (0.2-1.0) mg/dl AST (13-39) U/L ALT (7-52) U/L Alkaline Phosphatase (34-104) U/L Troponin I High Sens (0-20) pg/ml Total Protein (6.0-8.3) gm/dl Albumin (3.4-5.0) gm/dl Globulin (2.5-4.0) gm/dl Albumin/Globulin Ratio (0.9-2) SARS-CoV-2, RNA, NAAT (NEGATIVE) Blood Type Antibody Screen Antibody Identification Antibody ID Comment Crossmatch Administered Medications Pantoprazole Sodium 40 mg/ (Dextrose) 100 mls @ 20 mls/hr IV Q5H BIENVENIDO Stop: 05/13/23 19:59 Last Admin: 04/13/23 20:43 Dose: 8 mg/hr, 20 mls/hr Documented By: KELECHI Discontinued Medications Sodium Chloride (Nss 1000ml) 1,000 mls @ 999 mls/hr IV .Q1H1M ONE Stop: 04/13/23 15:59 Last Infusion: 04/13/23 16:24 Dose: 0 mls/hr Documented By: Admin: 04/13/23 15:24 Dose: 999 mls/hr Documented By: NIHARIKA Pantoprazole Sodium 80 mg/ (Dextrose) 120 mls @ 480 mls/hr IV ONE STA Stop: 04/13/23 15:15 Last Infusion: 04/13/23 16:27 Dose: 0 mls/hr Documented By: Admin: 04/13/23 16:12 Dose: 480 mls/hr Documented By: NIHARIKA Ioversol (Optiray 320 100ml) 92 ml IV ONCE ONE Stop: 04/13/23 16:08 Last Admin: 04/13/23 16:07 Dose: 92 ml Documented By: ISSAC Imaging Data Radiologist's Impression: Chest X-Ray 04/13/23 14:10 XR chest 1V portable HISTORY: Chest pain, nonspecific COMPARISON: Chest 02/02/2022. FINDINGS: No pneumothorax. No pleural effusions. The cardiac silhouette is borderline enlarged. No evidence for pulmonary edema. A right shoulder prosthesis. Questionable 9 mm nodular density within the right midlung zone. IMPRESSION: 1. No acute process within the chest. 2. Questionable 9 mm nodule within the right midlung zone. This could represent a nipple shadow. Follow-up nonemergent PA and lateral views of the chest are recommended for further evaluation. ACT 112: Positive. There are findings on this exam that require communication between the performing entity and the patient following Patient Test Result Information Act ([place] Act 112) guidelines. Electronically signed by: Aníbal Soares M.D. 04/13/2023 3:30 PM Abdomen/Pelvis CT 04/13/23 14:[address] WITH IV CONTRAST CT DOSE: 1549.61 mGy.cm HISTORY: bloated, lower abdominal pain, hist gI bleed TECHNIQUE: Multiaxial CT images of the abdomen and pelvis were performed following the use of intravenous contrast. A dose lowering technique was utilized adhering to the principles of ALARA. COMPARISON STUDY: Lumbar spine MRI 07/30/2022. FINDINGS: There are few punctate calcified granulomas within the right lower lobe. The left lung base is clear. There is a left total hip arthroplasty. Severe degenerative changes noted within the right hip. Stable 4.2 cm hypodense collection at the right L4-L5 hemilaminectomy site. This is better appreciated on the prior lumbar spine MRI. No acute fractures identified. Mild circumferential thickening of the distal esophagus and a small hiatus hernia. Coronary artery calcifications are noted. Dextroscoliosis of the lumbar spine. The liver, gallbladder, spleen, and adrenal glands unremarkable. There are few scattered punctate calcifications within the pancreas. No evidence for acute pancreatitis. The kidneys enhance normally. No hydronephrosis. No retroperitoneal lymphadenopathy. The main portal vein is patent. Normal caliber abdominal aorta with mild calcified plaque. No pelvic free fluid or pelvic lymphadenopathy. The prostate gland is mildly enlarged. Normal bladder. Colonic diverticulosis. No evidence for acute diverticulitis. Moderate fecal retention. No bowel wall thickening or obstruction. Normal appendix. IMPRESSION: 1. Mild circumferential thickening of the distal esophagus with a small hiatus hernia. This favors a mild esophagitis. 2. Otherwise, no bowel wall thickening or obstruction. 3. Colonic diverticulosis. No evidence for acute diverticulitis. 4. Moderate fecal retention. 5. Normal appendix. 6. Additional findings as described above. ACT 112: Negative or not required by law. Electronically signed by: Aníbal Soares M.D. 04/13/2023 5:11 PM Discharge Plan Visit Data Chief Complaint: Shortness of Breath/Dyspnea Stated Complaint: LIGHT HEADED, SOB, ED Provider: True Hogan Discharge Problem: SOB (shortness of breath), History of GI bleed, Near syncope, Tachycardia, Anemia, Elevated BUN Patient Disposition: Admitted As Inpatient Condition: Fair Discharge Instructions Interventions: ED Discharge Assessment Last Done: 04/13/23 21:11
[2023-04-13 16:03] LABS: INR 1.1 (0.9-1.1); Partial Thromboplastin Ratio 0.8; Partial Thromboplastin Time 23.9 Seconds (21.0-31.0); Prothrombin Time 11.5 Seconds (9.0-12.0)
[2023-04-13] MEDS ORDERED: OPTIRAY 320 100ml IV ONE (16:07)
--- NOTE | 2023-04-13 17:14 | CT Scan Report ---
ABDOMEN AND PELVIS CT WITH IV CONTRAST CT DOSE: 1549.61 mGy.cm HISTORY: bloated, lower abdominal pain, hist gI bleed TECHNIQUE: Multiaxial CT images of the abdomen and pelvis were performed following the use of intrave nous contrast. A dose lowering technique was utilized adhering to the principles of ALARA. COMPARISON STUDY: Lumbar spine MRI 07/30/2022. FINDINGS: There are few punctate calcified granulomas within the right lower lobe. The left lung base is clear. There is a left total hip arthroplasty. Severe degenerative changes noted within the right hip. Stable 4.2 cm hypodense collection at the right L4-L5 hemilaminectomy site. This is better appr eciated on the prior lumbar spine MRI. No acute fractures identified. Mild circumferential thickening of the distal esophagus and a small hiatus hernia. Coronary artery calcifications are noted. Dextros coliosis of the lumbar spine. The liver, gallbladder, spleen, and adrenal glands unremarkable. There are few scattered punctate calcifications within the pancreas. No evidence for acute pancreatitis. Th e kidneys enhance normally. No hydronephrosis. No retroperitoneal lymphadenopathy. The main portal ve in is patent. Normal caliber abdominal aorta with mild calcified plaque. No pelvic free fluid or pelv ic lymphadenopathy. The prostate gland is mildly enlarged. Normal bladder. Colonic diverticulosis. No evidence for acute diverticulitis. Moderate fecal retention. No bowel wall thickening or obstruction . Normal appendix. IMPRESSION: 1. Mild circumferential thickening of the distal esophagus with a small hiatus hernia. This favors a mild esophagitis. 2. Otherwise, no bowel wall thickening or obstruction. 3. Colonic diverticulosis. No evidence for acute diverticulitis. 4. Moderate fecal retention. 5. Normal appendix. 6. Additional findings as described above. ACT 112: Negative or not required by law. Electronically signed by: Aníbal Soares M.D. 04/13/2023 5:11 PM
[2023-04-13] MEDS ORDERED: ALUMINUM/MAGNESIUM SUSP 30 ML UDC PO PRN (18:28)
[2023-04-13] MEDS ORDERED: ONDANSETRON INJ 2 MG/ML 2 ML VIAL IV PRN (18:28)
[2023-04-13] MEDS ORDERED: POLYETHYLENE (MIRALAX) 17 GM PACK PO PRN (18:28)
[2023-04-13] MEDS ORDERED: MAGNESIUM HYDROXIDE SUSP 30 ML UDC PO PRN (18:28)
--- NOTE | 2023-04-13 18:43 | History & Physical Report ---
Date of Service April 13, 2023 Assessment & Plan (1) Symptomatic anemia: (2) Hypertension: (3) GERD (gastroesophageal reflux disease): (4) Hyperlipidemia: (5) History of GI bleed: Plan 72 year old presents with SOB, tachycardia, abdominal fullness and hypotension. Last night, he started to feel abdominal 'fullness' in his med abdomen. He tried to self induce vomiting due to the fullness feeling but was unsuccessful. He couldnt sleep with how uncomfortable he was feeling. He was sitting and stood and felt his heart rate climb; his who is an RN took his pulse and it was in the 130's. H/O GIB x 30 years ago related to aspirin and NSAID use. Hgb 11.9; baseline 13-15. BUN elevated 65 without creatinine bump. T/S and consent obtained in ED. Trop negative. Abd/Pelvic CT: Mild circumferential thickening of the distal esophagus with a small hiatus hernia. This favors a mild esophagitis. No bowel wall thickening or obstruction. Colonic diverticulosis. No evidence for acute diverticulitis. Moderate fecal retention. Protonix gtt, NPO, GI consult. Other PMH HTN, HLD, depression. Symptomatic Anemia: Suspect Upper GIB; H/O GIB 30 years ago Abdomen/Pelvis CT: Mild circumferential thickening of the distal esophagus with a small hiatus hernia. This favors a mild esophagitis. No bowel wall thickening or obstruction. Colonic diverticulosis. No evidence for acute diverticulitis. Moderate fecal retention. Hgb 11.9; baseline 13-15 BUN 65; normal creatinine FOBT negative Type and Screen with consent done in ED; had had a blood transfusion in the past Troponin negative Positional tachycardia/hypotension; check orthostatic BPs 1LNSB given in ED; continue fluids @ 125 ml/hour x 2 bags; reassess Protonix gtt started in ED; continue for now Q 6 H/H GI Consult placed Arthritis: H/O Back Surgery: Arachnoiditis; surgery performed at [facility] in 10/2022. Has been more sedentary since his surgery Right hip replacement scheduled for 05/[address] Jordan Takes Meloxicam; hold for now due to increased risk for bleeding Check D-Dimer for increased PE risk. HTN: Takes Losartan/HCTZ; continue If becomes hypotensive; hold HLD: takes Atorvastatin; continue Alcohol use: drinks 2-3 beers 2-3 times per week Sometimes goes weeks without any. No need for AWSS scale at this time Disposition: PCP: Dr. Persaud Code Status: Full Code VTE Prophyalxis: Teds + SCDs for now I spent a total of 87 minutes coordinating, documenting, and providing care for this patient excluding time spent in the performance of separately billed services. All of the aforementioned completed while collaborating with the assigned attending physician for a full treatment plan. Please see their addendum for further details. History of Present Illness Chief Complaint: SOB Primary Care Provider: Melquiades Persaud MD 72 year old presents with SOB, tachycardia, abdominal fullness and hypotension. Last night, he started to feel abdominal 'fullness' in his med abdomen. He tried to self induce vomiting due to the fullness feeling but was unsuccessful. He couldnt sleep with how uncomfortable he was feeling. He was sitting in a chair this afternoon and stood and felt his heart rate increase; his who is an RN took his pulse and it was in the 130's. Known H/O GIB x 30 years ago related to aspirin and NSAID use. Hgb 11.9; baseline 13-15. BUN elevated 65 , creatinine 0.96. T/S and consent obtained in ED. Trop negative. Abd/Pelvic CT: Mild circumferential thickening of the distal esophagus with a small hiatus hernia. This favors a mild esophagitis. No bowel wall thickening or obstruction. Colonic diverticulosis. No evidence for acute diverticulitis. Moderate fecal retention. CXR negative for acute cardiopulmonary process. Questionable 9 mm nodule within the right midlung zone. This could represent a nipple shadow. Follow-up nonemergent PA and lateral views of the chest are recommended for further evaluation. Protonix IV, NPO, GI consult with fluid resuscitation. Other PMH HTN, HLD, depression. Pt had arachnoiditis and had back surgery at [facility] in October 2022. He is scheduled to have R hip replacement in May 2023 at [facility] with Dr. Jordan. He indicates he is more sedentary as he prepares for his upcoming surgery; higher risk for PE; will order D-Dimer. Hgb: 11.9; baseline 14-15. FOBT negative. BUN 60s was otherwise normal. Denies tobacco or recreational drug use. Drinks two - three days per week; drinking two - three beers on those days but can go weeks without an alcoholic drink. Pt denies BELTRAN, dizziness, Chest pain, palpitations, hematochezia, melena, coffee ground emesis, nausea, vomiting, diarrhea, abdominal pain or tenderness, stool or urine changes, recent falls or trauma. Suspect that his symptomatic anemia may be related to an upper GIB starting to evolve as his Hgb has dropped, has been taking Meloxicam daily and the fullness feeling in his epigastrum. Responded well to IV fluids; HR resolved back to normal with some PVC's. Patient will be admitted for further evaluation and management. Please see A/P for further details. Allergies Allergy/AdvReac Type Severity Reaction Status Date / Time ibuprofen AdvReac Mild NASAL Verified 04/13/23 17:03 STUFFINESS Home Medications Medication Instructions Recorded Confirmed Type albuterol sulfate 90 mcg/actuation 1 puff inhalation Q6H PRN Wheezing 09/03/18 04/13/23 History aerosol inhaler meloxicam 15 mg tablet 15 mg PO QAM 11/17/21 04/13/23 History atorvastatin 40 mg tablet 40 mg PO DAILY 01/28/22 04/13/23 History acetaminophen 500 mg tablet 500 mg PO BID PRN Pain 04/13/23 04/13/23 History losartan 100 1 tab PO QAM 04/13/23 04/13/23 History mg-hydrochlorothiazide 12.5 mg tablet Past Med/Surg History Medical History Asthma Very well controlled > rare res inh use GERD (gastroesophageal reflux disease) Well controlled and stable Gout No recent issues History of GI bleed Hyperlipidemia Hypertension 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 BIGEMINY NOTED ON MONITOR ONCE-- EVALUATED BY DR YARBROUGH 2015. ECHO WNL. PT ASYMPTOMATIC. Restless legs Stable Symptomatic anemia Surgical History History of adenoidectomy History of cataract surgery RIGHT AND LEFT History of colonoscopy History of discectomy LUMBAR AREA (X3 SURGERIES WITHIN 21 DAYS) WITH REVISIONS DUE TO DURA BEING CUT DURING FIRST SURGERY L4-5 History of endoscopic sinus surgery History of esophagogastroduodenoscopy (EGD) History of herniorrhaphy UMBILICAL History of tonsillectomy History of tooth extraction History of total shoulder replacement RIGHT - [facility] Hx of thumb surgery right Social History Smoking Status: Never smoker Second Hand Exposure: No; Do You Dip or Chew Tobacco: No; Hx Alcohol Use: No Hx Substance Use: No Preferred Language: [place]dean Communication Ability: Effective Tile Grinder Required: No Beliefs That Will Affect Care: None marital status: Current Living Situation: Spouse Current Living Situation Comment: home with Other Information That Helps Us Care for You: No Feels Safe at Home: Yes Safety Concerns: Feels Safe At This Time Assistive Devices: Glasses Review of Systems Review of Systems: Neuro: (-) Falls, trauma, slurred speech HEENT: (-) BELTRAN, dizziness, dysphagia, visual or auditory changes CV: (-) CP, palpitations, swelling Resp: (+) exertional SOB GI: (-) appetite changes, N/V/D, bowel changes (+) abdominal fullness (-) melena, hematochezia, coffee ground emesis : (-) urinary changes Skin: (-) rashes Psych: (-) anxiety, depression Physical Exam Physical Exam: Neuro: AAOx4, PERRLA, no aphagia, memory changes, CNII-XII grossly intact HEENT: head normocephalic, moist mucus membranes CV: S1/S2, (-) M/G/R, (-) edema, cap refill < 3 seconds Resp: Lungs CTA in all hart. On RA GI: Abdomen large S/NT/ND, Ax4 bowel sounds, (-) CVA tenderness Musculoskeletal: 5/5 B/L UE strength, 5/5 B/L LE strength. No gait disturbance Skin: (-) rashes , (-) erythema. Psych: euthymic mood Results & Data Results & Data Vital Signs (Past 12 Hours) Vital Signs Temp Pulse Pulse Resp BP BP Pulse Ox 04/13/23 16:14 81 18 150/97 H 98 04/13/23 15:34 04/13/23 15:34 84 16 132/83 93 04/13/23 15:34 04/13/23 14:56 92 H 04/13/23 14:02 37.0 C 130 H 20 100/65 99 O2 Del Method 04/13/23 16:14 Room Air 04/13/23 15:34 Room Air 04/13/23 15:34 04/13/23 15:34 Room Air 04/13/23 14:56 04/13/23 14:02 Room Air Laboratory Results Short CBC 04/13/23 Range/Units 14:16 WBC 8.26 (4.8-10.8) K/ul Hgb 11.9 L (14.0-18.0) g/dl Hct 34.2 L (42.0-52.0) % Plt Count 231 (130-400) K/uL BMP 04/13/23 14:16 Sodium 136 Potassium 3.8 Chloride 103 Carbon Dioxide 24 BUN 65 H Creatinine 0.96 Glucose 141 H Calcium 9.8 Liver Function 04/13/23 Range/Units 14:16 Total Bilirubin 0.5 (0.2-1.0) mg/dl AST 17 (13-39) U/L ALT 22 (7-52) U/L Alkaline Phosphatase 96 (34-104) U/L Albumin 4.2 (3.4-5.0) gm/dl Diagnostic Findings Chest X-Ray 04/13/23 14:10 XR chest 1V portable HISTORY: Chest pain, nonspecific COMPARISON: Chest 02/02/2022. FINDINGS: No pneumothorax. No pleural effusions. The cardiac silhouette is borderline enlarged. No evidence for pulmonary edema. A right shoulder prosthesis. Questionable 9 mm nodular density within the right midlung zone. IMPRESSION: 1. No acute process within the chest. 2. Questionable 9 mm nodule within the right midlung zone. This could represent a nipple shadow. Follow-up nonemergent PA and lateral views of the chest are recommended for further evaluation. ACT 112: Positive. There are findings on this exam that require communication between the performing entity and the patient following Patient Test Result Information Act ([place] Act 112) guidelines. Electronically signed by: Aníbal Soares M.D. 04/13/2023 3:30 PM Abdomen/Pelvis CT 04/13/23 14:[address] WITH IV CONTRAST CT DOSE: 1549.61 mGy.cm HISTORY: bloated, lower abdominal pain, hist gI bleed TECHNIQUE: Multiaxial CT images of the abdomen and pelvis were performed following the use of intravenous contrast. A dose lowering technique was utilized adhering to the principles of ALARA. COMPARISON STUDY: Lumbar spine MRI 07/30/2022. FINDINGS: There are few punctate calcified granulomas within the right lower lobe. The left lung base is clear. There is a left total hip arthroplasty. Severe degenerative changes noted within the right hip. Stable 4.2 cm hypodense collection at the right L4-L5 hemilaminectomy site. This is better appreciated on the prior lumbar spine MRI. No acute fractures identified. Mild circumferential thickening of the distal esophagus and a small hiatus hernia. Coronary artery calcifications are noted. Dextroscoliosis of the lumbar spine. The liver, gallbladder, spleen, and adrenal glands unremarkable. There are few scattered punctate calcifications within the pancreas. No evidence for acute pancreatitis. The kidneys enhance normally. No hydronephrosis. No retroperitoneal lymphadenopathy. The main portal vein is patent. Normal caliber abdominal aorta with mild calcified plaque. No pelvic free fluid or pelvic lymphadenopathy. The prostate gland is mildly enlarged. Normal bladder. Colonic diverticulosis. No evidence for acute diverticulitis. Moderate fecal retention. No bowel wall thickening or obstruction. Normal appendix. IMPRESSION: 1. Mild circumferential thickening of the distal esophagus with a small hiatus hernia. This favors a mild esophagitis. 2. Otherwise, no bowel wall thickening or obstruction. 3. Colonic diverticulosis. No evidence for acute diverticulitis. 4. Moderate fecal retention. 5. Normal appendix. 6. Additional findings as described above. ACT 112: Negative or not required by law. Electronically signed by: Aníbal oSares M.D. 04/13/2023 5:11 PM Code Status & VTE Plan Code Status Full Code in the event of cardiac or respiratory arrest VTE Prophylaxis Plan VTE Prophylaxis will be ordered: Yes Supervising Physician Co-Signing Physician Notes I have seen and examined the patient and have discussed the case with the pr ovider above. I agree with the assessment and plan as stated with the following exceptions. 72 yo M presents with acute shortness of breath without hypoxia and stomach pain worse yesterday and better today. He reports that he felt a lump in his stomach last night after dinner that was not improved with TUMS. He reports severe acid reflux and felt some of this get into his airway and he started coughing a few times. He denies vomiting and has a poor appetite. Today his stomach issues are better but his shortness of breath with exertion is still present per his report. He did have a reported rapid increase in pulse with standing earlier today and was short of breath. He does appear to have anemia with a Hb drop from baseline and elevated BUN in the setting of Mobic use as a h/o GI bleed in the past. With dizziness upon standing and shortness of breath clinically, this may suggest a GI bleed. He was started on a protonix drip but remains hemodynamically stable at rest with no gross blood per rectum and no recent h/o melena. He also reported a surgery in Oct 2022 and more sedentary behavior recently. With his description of how severe the shortness of breath was, and given his anemia was fairly mild despite being a drop from his baseline, PE was considered in the differential diagnosis. A d-dimer was mildly positive. A repeat CT angio is pending. Given he already had a dose of IV contrast today he is on IVF and will continue on these through the night to help prevent RUBY. On exam he is is NAD, WNWD. Skin warm and dry. Abdomen is soft, NTND. Lungs CTAB. CV: S1/2 heard, reg rate and rhythm, no murmurs. Euvolemic on exam. 1. Shortness of breath on exertion without hypoxia 2. anemia 3. Arthritis with ongoing use of NSAIDs. Agree with protonix and trending blood count. Anemia may be dilutional vs acute blood loss anemia or other. GI consult for assistance with rule out acute bleed. Hold NSAIDs including Mobic. Given elevated d dimer and description of the severe shortness of breath, CT chest to rule out PE. Cont additional plans as mentioned above. DO Keagan
[2023-04-13 19:55] LABS: Hematocrit (blood only) 29.4 % (42.0-52.0); Hemoglobin 10.1 g/dl (14.0-18.0)
[2023-04-13 20:08] LABS: BUN Creatinine Ratio 63.4 (10-20); Creatinine Clr Calc Pharmacy 102.6 ml/min; Est GFR (African American) 94.1 ml/min; Est GFR (Non-African American) 81.2 ml/min; Potassium 3.9 mmol/L (3.5-5.1)
[2023-04-13] MEDS ORDERED: SODIUM CHLORIDE 0.9% 250 ML IV PRN (20:23)
[2023-04-13] MEDS: PANTOprazole 40 MG in DEXTROSE 5% 100 ML IV SCH (20:43)
[2023-04-13 21:13] LABS: D Dimer 540 ug/L FEU (0-500)
[2023-04-13] MEDS ORDERED: OPTIRAY 320 125ml IV ONE (22:18)
[2023-04-13] MEDS: SODIUM CHLORIDE 0.9% 1000ML 1,000 ML IV SCH (22:23)
--- NOTE | 2023-04-13 23:31 | CT Scan Report ---
Exam(s): CTA CHEST IV Amt: 84ML OPTIRAY 320 EXAM: CT Angiography Chest With Intravenous Contrast CLINICAL HISTORY: Reason for exam: PE. TECHNIQUE: Axial computed tomographic angiography images of the chest with intravenous contrast. CTDI is 35 mGy and DLP is 922.18 mGy-cm. Automated exposure control was utilized for the study. A dose lowering technique was utilized adhering to the principles of ALARA. MIP reconstructed images were created and reviewed. COMPARISON: No relevant prior studies available. FINDINGS: Pulmonary arteries: Unremarkable. No acute pulmonary embolism. Aorta: No acute findings. No thoracic aortic aneurysm. Lungs: RIGHT middle lobe nodule measures 11 mm, follow-up as per Fleischner Society guidelines. Pleural space: Unremarkable. No focal infiltrate, pleural effusion, or pneumothorax. Heart: Cardiomegaly. No significant pericardial effusion. No evidence of RV dysfunction. Mediastinum: Small hiatal hernia. Bones/joints: RIGHT shoulder arthroplasty. Degenerative changes of the spine. No acute fracture. No dislocation. Soft tissues: Unremarkable. Lymph nodes: Unremarkable. No enlarged lymph nodes. IMPRESSION: 1. No acute pulmonary embolism. 2. No focal infiltrate, pleural effusion, or pneumothorax. 3. RIGHT middle lobe nodule measures 11 mm, follow-up as per Fleischner Society guidelines. Electronically signed by: Camilo Scott MD 04/13/23 23:30 PM
[2023-04-14] MEDS: PANTOprazole 40 MG in DEXTROSE 5% 100 ML IV SCH ×6 (01:45→23:05)
[2023-04-14 01:50] LABS: Hematocrit (blood only) 28.3 % (42.0-52.0); Hemoglobin 9.8 g/dl (14.0-18.0)
[2023-04-14] MEDS ORDERED: ALBUT/IPRATROP 3MG/0.5MG NEB 3 ML VIAL NEB STA (04:11)
[2023-04-14] MEDS ORDERED: ALBUTEROL HFA 8 GM INHALER INH PRN (04:21)
[2023-04-14 04:49] LABS: Hemoglobin 9.5 g/dl (14.0-18.0); Mean Corpuscular Hemoglobin 31.4 pg (25.0-34.0); Mean Corpuscular Hgb Conc 35.2 g/dL (32.0-36.0); Mean Corpuscular Volume 89.1 fL (80.0-100.0); Mean Platelet Volume 11.7 fL (9.4-12.4); Platelet Count 166 K/uL (130-400); RDW Coefficient of Variation 12.9 % (11.5-14.5); Red Blood Count 3.03 M/uL (4.70-6.10)
[2023-04-14 05:08] LABS: Albumin Globulin Ratio 1.6 (0.9-2); Albumin Level 3.5 gm/dl (3.4-5.0); BUN Creatinine Ratio 55.2 (10-20); Bilirubin,Total 0.4 mg/dl (0.2-1.0); Calcium 8.6 mg/dl (8.6-10.3); Creatinine Clr Calc Pharmacy 109.7 ml/min; Est GFR (African American) 99.2 ml/min; Est GFR (Non-African American) 85.6 ml/min; Globulin 2.2 gm/dl (2.5-4.0); Potassium 3.5 mmol/L (3.5-5.1); Total Protein 5.7 gm/dl (6.0-8.3)
[2023-04-14] MEDS ORDERED: ALBUT/IPRATROP 3MG/0.5MG NEB 3 ML VIAL ONE (05:25)
[2023-04-14] MEDS: MAGNESIUM SULFATE / D5W 1 GM/100 ML BAG IV SCH ×2 (05:37→05:38)
[2023-04-14] MEDS: SODIUM CHLORIDE 0.9% 1000ML 1,000 ML IV SCH (07:13)
[2023-04-14] MEDS: ATORVASTATIN 40 MG TAB PO SCH (08:11)
[2023-04-14] MEDS ORDERED: hydroCHLOROthiazide 25 MG TAB PO SCH (09:00)
[2023-04-14] MEDS ORDERED: LOSARTAN POTASSIUM 50 MG TAB PO SCH ×2 (09:00)
--- NOTE | 2023-04-14 09:39 | Gastrointestinal Consultation ---
Date of Consultation April 14, 2023 Assessment & Plan (1) Esophagitis: 72-year-old with a longstanding history of use of Mobic presenting with anemia and evidence of esophagitis on the CT scan. There does not appear to be any overt bleeding at the present time we will make arrangements for upper endoscopy on Saturday. For the present I would recommend n.p.o. status and continued use of a Protonix drip as you are doing. Upper endoscopy will be scheduled for tomorrow unless the patient develops additional symptoms today. I suspect that the patient's esophagitis is related to his hiatal hernia and perhaps ongoing use of Mobic use of a proton pump inhibitor as an outpatient. Recommendations N.p.o. Continue Protonix drip Upper endoscopy arranged for Saturday morning Stop all nonsteroidals and antiplatelet agents please Please call with any questions or concerns History of Present Illness Reason for Consultation: Esophagitis Requesting Physician: Dr. Dickinson Attending Physician: Talha Dickinson MD History of Present Illness The patient is a 72-year-old male who presented to the emergency room yesterday evening for evaluation of progressive abdominal fullness, bloating nausea. He notes that he does take Mobic on a regular basis due to problems with arthritis. The patient denies having difficulty with swallowing pain with swallowing changes in his bowel habits. Yesterday he was having brown stools but notes that it may be darkening this morning but denies having dark sticky stools. A Hemoccult was done in the emergency room which was negative. The patient's past medical history is notable for a hiatal hernia, hypertension hypercholesterolemia and depression. Allergies Allergy/AdvReac Type Severity Reaction Status Date / Time ibuprofen AdvReac Mild NASAL Verified 04/13/23 17:03 STUFFINESS Home Medications Medication Instructions Recorded Confirmed Type albuterol sulfate 90 mcg/actuation 1 puff inhalation Q6H PRN Wheezing 09/03/18 04/13/23 History aerosol inhaler meloxicam 15 mg tablet 15 mg PO QAM 11/17/21 04/13/23 History atorvastatin 40 mg tablet 40 mg PO DAILY 01/28/22 04/13/23 History acetaminophen 500 mg tablet 500 mg PO BID PRN Pain 04/13/23 04/13/23 History losartan 100 1 tab PO QAM 04/13/23 04/13/23 History mg-hydrochlorothiazide 12.5 mg tablet duloxetine 60 mg capsule,delayed 60 mg PO DAILY 04/14/23 04/14/23 History release (Cymbalta) Patient History Medical History Asthma Very well controlled > rare res inh use GERD (gastroesophageal reflux disease) Well controlled and stable Gout No recent issues History of GI bleed Hyperlipidemia Hypertension 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 BIGEMINY NOTED ON MONITOR ONCE-- EVALUATED BY DR YARBROUGH 2014. ECHO WNL. PT ASYMPTOMATIC. Restless legs Stable Symptomatic anemia Surgical History History of adenoidectomy History of cataract surgery RIGHT AND LEFT History of colonoscopy History of discectomy LUMBAR AREA (X3 SURGERIES WITHIN 21 DAYS) WITH REVISIONS DUE TO DURA BEING CUT DURING FIRST SURGERY L4-5 History of endoscopic sinus surgery History of esophagogastroduodenoscopy (EGD) History of herniorrhaphy UMBILICAL History of tonsillectomy History of tooth extraction History of total shoulder replacement RIGHT - [facility] Hx of thumb surgery right Social History Smoking Status: Never smoker Second Hand Exposure: No; Do You Dip or Chew Tobacco: No; Hx Alcohol Use: No Hx Substance Use: No Preferred Language: Turkmen Communication Ability: Effective Railroad Crossing Protection Maintainer Required: No Beliefs That Will Affect Care: None marital status: Current Living Situation: Spouse Current Living Situation Comment: home with Other Information That Helps Us Care for You: No Feels Safe at Home: Yes Safety Concerns: Feels Safe At This Time Assistive Devices: Glasses Review of Systems Constitutional: no fever, no chills and no sweats Eyes: no diplopia Ear, Nose, Mouth, Throat: no ear pain and no dizziness Respiratory: no cough, no change in sputum, no dyspnea and no hemoptysis Cardiovascular: no chest pain, no chest pain with activity and no dyspnea at rest Gastrointestinal: + nausea; no vomiting, no hematemesis, no cramping and no change in stools Genitourinary: no hematuria Neurologic: no falls and no paralysis Hematologic / Lymphatic: no coagulopathy Physical Exam Eyes: PERRL, conjunctivae normal, anicteric sclerae ENMT: external ear and nose normal, oropharynx normal Neck: no neck crepitus and no midline deformity Respiratory: Auscultation: no diminished lung sounds, no crackles, no rales and no wheezes Cardiovascular: Rate/Rhythm: regular rate and regular rhythm Heart Sounds: no murmur Gastrointestinal (Abdomen): Percussion/Palpation: abdomen soft; abdomen nontender, no guarding, abdomen not rigid and no ascites Results & Data Vital Signs (Past 12 Hours) Vital Signs Temp Pulse Pulse Resp BP Pulse Ox O2 Del Method 04/14/23 08:21 36.6 C 68 18 114/74 98 Room Air 04/13/23 22:00 77 04/14/23 05:29 77 17 96 Room Air 04/14/23 03:52 36.4 C L 73 18 146/62 H 96 Room Air 04/13/23 21:50 Room Air 04/13/23 21:45 36.5 C 86 18 134/89 99 Room Air Laboratory Results Laboratory Results - last 24 hr 04/13/23 04/13/23 04/13/23 14:16 14:16 14:16 WBC 8.26 RBC 3.77 L Hgb 11.9 L Hct 34.2 L MCV 90.7 MCH 31.6 MCHC 34.8 RDW Std Deviation 41.6 RDW Coeff of Melanie 12.7 Plt Count 231 MPV 12.0 Immature Gran % (Auto) 0.5 Neut % (Auto) 62.2 Lymph % (Auto) 23.2 [place] % (Auto) 9.1 Eos % (Auto) 4.4 Baso % (Auto) 0.6 Neut # (Auto) 5.14 Lymph # (Auto) 1.92 [place] # (Auto) 0.75 H Eos # (Auto) 0.36 Baso # (Auto) 0.05 Immature Gran # (Auto) 0.04 PT 11.5 INR 1.1 APTT 23.9 PTT Ratio 0.8 D-Dimer Sodium 136 Potassium 3.8 Chloride 103 Carbon Dioxide 24 Anion Gap 9 BUN 65 H Creatinine 0.96 Est Cr Clr Drug Dosing 97.4 Est GFR ( Amer) 90.5 Est GFR (Non-Af Amer) 78.1 BUN/Creatinine Ratio 67.7 H Glucose 141 H POC Glucose Calcium 9.8 Magnesium 1.7 Total Bilirubin 0.5 AST 17 ALT 22 Alkaline Phosphatase 96 Troponin I High Sens 7.3 Total Protein 7.0 Albumin 4.2 Globulin 2.8 Albumin/Globulin Ratio 1.5 SARS-CoV-2, RNA, NAAT Blood Type Antibody Screen Antibody Identification Antibody ID Comment Crossmatch 04/13/23 04/13/23 04/13/23 14:16 14:39 16:46 WBC RBC Hgb Hct MCV MCH MCHC RDW Std Deviation RDW Coeff of Melanie Plt Count MPV Immature Gran % (Auto) Neut % (Auto) Lymph % (Auto) [place] % (Auto) Eos % (Auto) Baso % (Auto) Neut # (Auto) Lymph # (Auto) [place] # (Auto) Eos # (Auto) Baso # (Auto) Immature Gran # (Auto) PT INR APTT PTT Ratio D-Dimer Sodium Potassium Chloride Carbon Dioxide Anion Gap BUN Creatinine Est Cr Clr Drug Dosing Est GFR ( Amer) Est GFR (Non-Af Amer) BUN/Creatinine Ratio Glucose POC Glucose 146 H Calcium Magnesium Total Bilirubin AST ALT Alkaline Phosphatase Troponin I High Sens Total Protein Albumin Globulin Albumin/Globulin Ratio SARS-CoV-2, RNA, NAAT NEGATIVE Blood Type O Positive Antibody Screen NEGATIVE Antibody Identification Cancelled Antibody ID Comment Cancelled Crossmatch See Detail 04/13/23 04/13/23 04/13/23 19:28 19:28 19:51 WBC RBC Hgb 10.1 L Hct 29.4 L MCV MCH MCHC RDW Std Deviation RDW Coeff of Melanie Plt Count MPV Immature Gran % (Auto) Neut % (Auto) Lymph % (Auto) [place] % (Auto) Eos % (Auto) Baso % (Auto) Neut # (Auto) Lymph # (Auto) [place] # (Auto) Eos # (Auto) Baso # (Auto) Immature Gran # (Auto) PT INR APTT PTT Ratio D-Dimer 540 H* Sodium 138 Potassium 3.9 Chloride 107 Carbon Dioxide 26 Anion Gap 5 BUN 59 H Creatinine 0.93 Est Cr Clr Drug Dosing 102.6 Est GFR ( Amer) 94.1 Est GFR (Non-Af Amer) 81.2 BUN/Creatinine Ratio 63.4 H Glucose 96 POC Glucose Calcium 9.0 Magnesium Total Bilirubin AST ALT Alkaline Phosphatase Troponin I High Sens Total Protein Albumin Globulin Albumin/Globulin Ratio SARS-CoV-2, RNA, NAAT Blood Type Antibody Screen Antibody Identification Antibody ID Comment Crossmatch 04/14/23 04/14/23 04/14/23 01:08 04:04 04:04 WBC 9.30 RBC 3.03 L Hgb 9.8 L 9.5 L Hct 28.3 L 27.0 L MCV 89.1 MCH 31.4 MCHC 35.2 RDW Std Deviation 42.0 RDW Coeff of Melanie 12.9 Plt Count 166 MPV 11.7 Immature Gran % (Auto) Neut % (Auto) Lymph % (Auto) [place] % (Auto) Eos % (Auto) Baso % (Auto) Neut # (Auto) Lymph # (Auto) [place] # (Auto) Eos # (Auto) Baso # (Auto) Immature Gran # (Auto) PT INR APTT PTT Ratio D-Dimer Sodium 139 Potassium 3.5 Chloride 107 Carbon Dioxide 25 Anion Gap 7 BUN 48 H Creatinine 0.87 Est Cr Clr Drug Dosing 109.7 Est GFR ( Amer) 99.2 Est GFR (Non-Af Amer) 85.6 BUN/Creatinine Ratio 55.2 H Glucose 100 H POC Glucose Calcium 8.6 Magnesium Total Bilirubin 0.4 AST 13 ALT 16 Alkaline Phosphatase 77 Troponin I High Sens Total Protein 5.7 L Albumin 3.5 Globulin 2.2 L Albumin/Globulin Ratio 1.6 SARS-CoV-2, RNA, NAAT Blood Type Antibody Screen Antibody Identification Antibody ID Comment Crossmatch Diagnostic Findings ABDOMEN AND PELVIS CT WITH IV CONTRAST CT DOSE: 1549.61 mGy.cm HISTORY: bloated, lower abdominal pain, hist gI bleed TECHNIQUE: Multiaxial CT images of the abdomen and pelvis were performed following the use of intravenous contrast. A dose lowering technique was utilized adhering to the principles of ALARA. COMPARISON STUDY: Lumbar spine MRI 07/30/2022. FINDINGS: There are few punctate calcified granulomas within the right lower lobe. The left lung base is clear. There is a left total hip arthroplasty. Severe degenerative changes noted within the right hip. Stable 4.2 cm hypodense collection at the right L4-L5 hemilaminectomy site. This is better appreciated on the prior lumbar spine MRI. No acute fractures identified. Mild circumferential thickening of the distal esophagus and a small hiatus hernia. Coronary artery calcifications are noted. Dextroscoliosis of the lumbar spine. The liver, gallbladder, spleen, and adrenal glands unremarkable. There are few scattered punctate calcifications within the pancreas. No evidence for acute pancreatitis. The kidneys enhance normally. No hydronephrosis. No retroperitoneal lymphadenopathy. The main portal vein is patent. Normal caliber abdominal aorta with mild calcified plaque. No pelvic free fluid or pelvic l ymphadenopathy. The prostate gland is mildly enlarged. Normal bladder. Colonic diverticulosis. No evidence for acute diverticulitis. Moderate fecal retention. No bowel wall thickening or obstruction. Normal appendix. IMPRESSION: 1. Mild circumferential thickening of the distal esophagus with a small hiatus hernia. This favors a mild esophagitis. 2. Otherwise, no bowel wall thickening or obstruction. 3. Colonic diverticulosis. No evidence for acute diverticulitis. 4. Moderate fecal retention. 5. Normal appendix. 6. Additional findings as described above.
--- NOTE | 2023-04-14 11:09 | XRay Report ---
XR chest 1V portable CLINICAL HISTORY: sob TECHNIQUE: Single frontal radiograph of the chest was obtained. Comparison: Comparison is made to chest radiograph 04/13/2023 FINDINGS: Exam is limited by underpenetration. The cardiomediastinal silhouette is normal. The lungs are clear. No evidence of pleural effusion or pneumothorax. IMPRESSION: No acute abnormalities and in particular no radiographic evidence of pneumonia. ACT 112: Negative or not required by law. Electronically signed by: Josias Thomas M.D. 04/14/2023 11:07 AM
--- NOTE | 2023-04-14 11:47 | Electrocardiogram Report ---
Test Reason : Blood Pressure : / mmHG Vent. Rate : 108 BPM Atrial Rate : 108 BPM P-R Int : 186 ms QRS Dur : 096 ms QT Int : 338 ms P-R-T Axes : 041 -53 048 degrees QTc Int : 452 ms Sinus tachycardia with frequent Premature ventricular complexes Left anterior fascicular block Cannot rule out Inferior infarct , age undetermined Poor R wave progression, consider anterior [place] vs. lead placement vs. LVH Abnormal ECG When compared with ECG of 29-JAN-2022 03:31, Premature ventricular complexes are now Present Left anterior fascicular block is now Present Confirmed by Vipul Gibson ([id number]) on 04/14/2023 11:47:22 AM Referred By: Confirmed By:Vipul Gibson
[2023-04-14] MEDS: ACETAMINOPHEN 325 MG TAB PO PRN ×2 (12:10→19:35)
[2023-04-14 13:38] LABS: Hematocrit (blood only) 27.1 % (42.0-52.0); Hemoglobin 9.3 g/dl (14.0-18.0)
--- NOTE | 2023-04-14 16:39 | Hospitalist Progress Note ---
Date of Service April 14, 2023 Assessment & Plan (1) Symptomatic anemia: (2) Hypertension: (3) GERD (gastroesophageal reflux disease): (4) Hyperlipidemia: (5) History of GI bleed: Plan per admitting service notes with addendum: 72 year old presents with SOB, tachycardia, abdominal fullness and hypotension. Last night, he started to feel abdominal 'fullness' in his med abdomen. He tried to self induce vomiting due to the fullness feeling but was unsuccessful. He couldnt sleep with how uncomfortable he was feeling. He was sitting and stood and felt his heart rate climb; his who is an RN took his pulse and it was in the 130's. H/O GIB x 30 years ago related to aspirin and NSAID use. Hgb 11.9; baseline 13-15. BUN elevated 65 without creatinine bump. T/S and consent obtained in ED. Trop negative. Abd/Pelvic CT: Mild circumferential thickening of the distal esophagus with a small hiatus hernia. This favors a mild esophagitis. No bowel wall thickening or obstruction. Colonic diverticulosis. No evidence for acute diverticulitis. Moderate fecal retention. Protonix gtt, NPO, GI consult. Other PMH HTN, HLD, depression. Symptomatic Anemia: Suspect Upper GIB; H/O GIB 30 years ago Abdomen/Pelvis CT: Mild circumferential thickening of the distal esophagus with a small hiatus hernia. This favors a mild esophagitis. No bowel wall thickening or obstruction. Colonic diverticulosis. No evidence for acute diverticulitis. Moderate fecal retention. Hgb 11.9; baseline 13-15 BUN 65; normal creatinine FOBT negative Type and Screen with consent done in ED; had had a blood transfusion in the past Troponin negative Positional tachycardia/hypotension; check orthostatic BPs 1LNSB given in ED; continue fluids @ 125 ml/hour x 2 bags; reassess Protonix gtt started in ED; continue for now Q 6 H/H GI Consult placed 04/14 Hemoglobin 11.9, currently 9.3 Continue Protonix drip N.p.o. except meds For EGD tomorrow Arthritis: H/O Back Surgery: Arachnoiditis; surgery performed at [facility] [place] 10/2022. Has been more sedentary since his surgery Right hip replacement scheduled for 05/[address] Jordan Takes Meloxicam; hold for now due to increased risk for bleeding Check D-Dimer for increased PE risk: 540 HTN: hold Losartan HCTZ HLD: takes Atorvastatin; continue Alcohol use: drinks 2-3 beers 2-3 times per week Sometimes goes weeks without any. No need for AWSS scale at this time Disposition: PCP: Dr. Persaud Code Status: Full Code VTE Prophylaxis: SCDs Admission and Anticipated Discharge Date Admission Date: April 13, 2023 Subjective Follow-up for possible upper GI bleed etc. Seen resting in bed, comfortable, not distressed Denies abdominal pain, nausea or vomiting, fevers or chills No chest pain, palpitations, dizziness, shortness of breath No other new symptoms Review of Systems Review of Systems: all noted and negative except for above Physical Exam Physical Exam: General- oriented x 3, not in distress, speaks in sentences with no effort or accessory muscle use Eyes- anicteric Neck- no JVD Lungs-clear breath sounds bilaterally Heart- normal rate, regular rhythm; no murmurs Abdomen- normal bowel sounds, nondistended, soft, nontender Extremities- no pretibial edema, no calf tenderness Neuro- alert, oriented x 3; no gross focal neurologic deficits Skin- warm & dry Results & Data Results & Data Vital Signs (Past 12 Hours) Vital Signs Temp Pulse Resp BP Pulse Ox O2 Del Method 04/14/23 15:25 36.7 C 73 18 112/70 95 Room Air 04/14/23 11:51 36.5 C 81 18 131/81 97 Room Air 04/14/23 08:21 36.6 C 68 18 114/74 98 Room Air 04/14/23 05:29 77 17 96 Room Air all noted and reviewed including below
[2023-04-14 19:23] LABS: Hematocrit (blood only) 25.4 % (42.0-52.0); Hemoglobin 8.7 g/dl (14.0-18.0)
[2023-04-15] MEDS: ACETAMINOPHEN 325 MG TAB PO PRN ×3 (03:18→20:40)
[2023-04-15] MEDS: PANTOprazole 40 MG in DEXTROSE 5% 100 ML IV SCH ×3 (03:52→18:08)
--- NOTE | 2023-04-15 08:13 | Hospitalist Progress Note ---
Date of Service April 15, 2023 Assessment & Plan (1) Symptomatic anemia: (2) Hypertension: (3) GERD (gastroesophageal reflux disease): (4) Hyperlipidemia: (5) History of GI bleed: Plan per admitting service notes with addendum: 72 year old presents with SOB, tachycardia, abdominal fullness and hypotension. Last night, he started to feel abdominal 'fullness' in his med abdomen. He tried to self induce vomiting due to the fullness feeling but was unsuccessful. He couldnt sleep with how uncomfortable he was feeling. He was sitting and stood and felt his heart rate climb; his who is an RN took his pulse and it was in the 130's. H/O GIB x 30 years ago related to aspirin and NSAID use. Hgb 11.9; baseline 13-15. BUN elevated 65 without creatinine bump. T/S and consent obtained in ED. Trop negative. Abd/Pelvic CT: Mild circumferential thickening of the distal esophagus with a small hiatus hernia. This favors a mild esophagitis. No bowel wall thickening or obstruction. Colonic diverticulosis. No evidence for acute diverticulitis. Moderate fecal retention. Protonix gtt, NPO, GI consult. Other PMH HTN, HLD, depression. Symptomatic Anemia: Possible acute blood loss anemia Suspect Upper GIB; H/O GIB 30 years ago Abdomen/Pelvis CT: Mild circumferential thickening of the distal esophagus with a small hiatus hernia. This favors a mild esophagitis. No bowel wall thickening or obstruction. Colonic diverticulosis. No evidence for acute diverticulitis. Moderate fecal retention. Hgb 11.9; baseline 13-15 BUN 65; normal creatinine FOBT negative Type and Screen with consent done in ED; had had a blood transfusion in the past Troponin negative Positional tachycardia/hypotension; check orthostatic BPs 1LNSB given in ED; continue fluids @ 125 ml/hour x 2 bags; reassess Protonix gtt started in ED; continue for now Q 6 H/H GI Consult placed 04/15 Hemoglobin 11.9, currently 9.3-->8.7 asymptomatic repeat tomorrow s/p EGD: (+) hiatal hernia, Cochran's esophagus Protonix drip--> Protonix PO BNID x 3 months, then daily clears advance tomorrow anticipate d/c tomorrow Arthritis: H/O Back Surgery: Arachnoiditis; surgery performed at [facility] in 10/2022. Has been more sedentary since his surgery Right hip replacement scheduled for 05/[address] Jordan Takes Meloxicam; hold for now due to increased risk for bleeding Check D-Dimer for increased PE risk: 540 HTN: hold Losartan HCTZ HLD: takes Atorvastatin; continue Alcohol use: drinks 2-3 beers 2-3 times per week Sometimes goes weeks without any. No need for AWSS scale at this time Disposition: PCP: Dr. Persaud Code Status: Full Code VTE Prophylaxis: SCDs Admission and Anticipated Discharge Date Admission Date: April 13, 2023 Subjective ff up for UGIB, etc s/p EGD today resting in bed, comfortable states he feels fine overall denies abdominal pain, nausea tolerating clears well (+) BM no chest pain, dyspnea, palpitations, dizziness no other symptoms Review of Systems Review of Systems: all noted and negative except for above Physical Exam Physical Exam: General- oriented x 3, not in distress, speaks in sentences with no effort or accessory muscle use Eyes- anicteric Neck- no JVD Lungs- clear BSBL Heart- normal rate, regular rhythm; no murmurs Abdomen- normal bowel sounds, nondistended, soft, no tenderness Extremities- no pretibial edema, no calf tenderness Neuro- alert, oriented x 3; no gross focal neurologic deficits Skin- warm & dry Results & Data Results & Data Vital Signs (Past 12 Hours) Vital Signs Temp Pulse Pulse Resp BP Pulse Ox O2 Del Method 04/15/23 04:12 36.6 C 69 18 126/69 98 Room Air 04/14/23 23:35 64 04/14/23 23:18 36.6 C 68 18 118/72 96 Room Air all noted and reviewed including below
--- NOTE | 2023-04-15 08:14 | Anesthesiology Consultation ---
Date of Service April 15, 2023 Assessment & Plan (1) Encounter for pre-operative examination: History Surgery Operation Date: 04/15/23 17:00 Proposed Procedures p Esophagogastroduodenoscopy Dr Orourke - Ying Orourke MD Height/Weight Height: 6 ft 4 in Weight: 120.6 kg Allergies Allergy/AdvReac Type Severity Reaction Status Date / Time ibuprofen AdvReac Mild NASAL Verified 04/15/23 08:08 STUFFINESS Medications Home Medications Medication Instructions Recorded Confirmed Last Taken albuterol sulfate 90 mcg/actuation 1 puff inhalation Q6H PRN Wheezing 09/03/18 04/13/23 01/05/22 04:30 aerosol inhaler meloxicam 15 mg tablet 15 mg PO QAM 11/17/21 04/13/23 02/20/22 atorvastatin 40 mg tablet 40 mg PO DAILY 01/28/22 04/13/23 02/20/22 acetaminophen 500 mg tablet 500 mg PO BID PRN Pain 04/13/23 04/13/23 Unknown losartan 100 1 tab PO QAM 04/13/23 04/13/23 Unknown mg-hydrochlorothiazide 12.5 mg tablet duloxetine 60 mg capsule,delayed 60 mg PO DAILY 04/14/23 04/14/23 04/12/23 08:00 release (Cymbalta) Active Medications Generic Name Dose Route Start Last Admin Trade Name Freq PRN Reason Stop Dose Admin Acetaminophen 650 mg 04/13/23 18:28 04/15/23 03:18 Acetaminophen 325 Mg Tab PO 05/13/23 18:27 650 mg Q4H PRN Administration Pain or Fever Atorvastatin Calcium 40 mg 04/14/23 09:00 04/14/23 08:11 Atorvastatin 40 Mg Tab PO 05/14/23 08:59 40 mg DAILY BIENVENIDO Administration Pantoprazole Sodium 40 mg/ 100 mls @ 20 mls/hr 04/13/23 20:00 04/15/23 03:52 Dextrose IV 05/13/23 19:59 8 mg/hr Q5H BIENVENIDO 20 mls/hr Administration 8 MG/HR Past Medical History Medical History (Updated 04/15/23 @ 08:14 by Brandy Kaufman MD) Asthma Very well controlled > rare res inh use GERD (gastroesophageal reflux disease) Well controlled and stable Gout No recent issues History of GI bleed Hyperlipidemia Hypertension 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 BIGEMINY NOTED ON MONITOR ONCE-- EVALUATED BY DR YARBROUGH 2014. ECHO WNL. PT ASYMPTOMATIC. Restless legs Stable Staphylococcus aureus bacteremia Symptomatic anemia Past Surgical History Surgical History History of adenoidectomy History of cataract surgery RIGHT AND LEFT History of colonoscopy History of discectomy LUMBAR AREA (X3 SURGERIES WITHIN 21 DAYS) WITH REVISIONS DUE TO DURA BEING CUT DURING FIRST SURGERY L4-5 History of endoscopic sinus surgery History of esophagogastroduodenoscopy (EGD) History of herniorrhaphy UMBILICAL History of tonsillectomy History of tooth extraction History of total shoulder replacement RIGHT - [facility] Hx of thumb surgery right Social History Smoking Status: Never smoker tobacco type: cigarettes Do You Dip or Chew Tobacco: No Hx Alcohol Use: No Alcohol type: beer alcohol intake frequency: holidays/special occasions only Hx Substance Use: No substance use type: does not use Physical Exam Vital Signs Last Vital Signs Temp 36.6 C 04/15/23 04:12 Pulse 69 04/15/23 04:12 Resp 18 04/15/23 04:12 BP 126/69 04/15/23 04:12 Pulse Ox 98 04/15/23 04:12 O2 Del Method Room Air 04/15/23 04:12 Testing Laboratory Results 04/14/23 18:47 04/14/23 04:04 PT 11.5 Seconds (9.0-12.0) 04/13/23 14:16 INR 1.1 (0.9-1.1) 04/13/23 14:16 APTT 23.9 Seconds (21.0-31.0) 04/13/23 14:16 Blood Type O Positive 04/13/23 14:16 Antibody Screen NEGATIVE 04/13/23 14:16
--- NOTE | 2023-04-15 08:42 | History & Physical Bridge Note ---
Date of Service April 15, 2023 History & Physical Bridge Note I have examined the patient, reviewed the History & Physical and in the interval since the performance of the History & Physical I have noted the following changes of clinical significance: no changes noted
[2023-04-15] MEDS ORDERED: LOSARTAN POTASSIUM 25 MG TAB PO SCH (09:00)
[2023-04-15] MEDS ORDERED: LIDOCAINE 2% 2 ML VIAL/AMP(20MG/ML) INFIL ONE (09:42)
[2023-04-15] MEDS ORDERED: PROPOFOL IV EMULSION 10 MG/ML 20 ML VIAL IV ONE (09:42)
--- NOTE | 2023-04-15 09:46 | GI REPORT ---
Patient Name: Dax Fontana Procedure Date: 04/15/2023 9:01 AM Date of : 1950 Admit Type: Inpatient Age: 72 Gender: Male Attending MD: Ying Orourke MD, Procedure: Upper GI endoscopy Providers: Ying Orourke MD Referring MD: Talha Dickinson Indications: Melena Medicines: Propofol per Anesthesia Complications: No immediate complications. Estimated Blood Loss: Estimated blood loss: none. Procedure: Pre-Anesthesia Assessment: - Prior to the procedure, a History and Physical was performed, and patient medications, allergies and sensitivities were reviewed. The patient's tolerance of previous anesthesia was reviewed. - The risks and benefits of the procedure and the sedation options and risks were discussed with the patient. All questions were answered and informed consent was obtained. - Patient identification and proposed procedure were verified prior to the procedure by the physician and the nurse. The procedure was verified in the procedure room. - Pre-procedure physical examination revealed no contraindications to sedation. After obtaining informed consent, the endoscope was passed under direct vision. Throughout the procedure, the patient's blood pressure, pulse, and oxygen saturations were monitored continuously. The Endoscope was introduced through the mouth, and advanced to the second part of duodenum. The upper GI endoscopy was accomplished without difficulty. The patient tolerated the procedure well. Findings: A large hiatal hernia was found. The proximal extent of the gastric folds (end of tubular esophagus) was 40 cm from the incisors. The hiatal narrowing was 44 cm from the incisors. There were esophageal mucosal changes classified as Cochran's stage C10-M12 per [place] criteria present in the lower third of the esophagus. The maximum longitudinal extent of these mucosal changes was 12 cm in length. Two cratered esophageal ulcers with no bleeding and no stigmata of recent bleeding were found 38 cm from the incisors. The largest lesion was 20 mm in largest dimension. The entire examined stomach was normal. The duodenal bulb and second portion of the duodenum were normal. Impression: - Large hiatal hernia. 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 - Pill induced Esophageal ulcers with no bleeding likely due to NSAIDs. - Normal stomach. - Normal duodenal bulb and second portion of the duodenum. - No specimens collected. Recommendation: - Return patient to [facility] for [facility] care. - Follow an antireflux regimen. 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 - Repeat upper endoscopy in 2 months to check healing and biopsy the Cochran's area. - No aspirin, ibuprofen, naproxen, Meloxicam or other non-steroidal anti-inflammatory drugs. - Recall GI if needed. Ying Orourke MD 04/15/2023 9:46:03 AM This report has been signed electronically. Note Initiated On: 04/15/2023 9:01 AM Number of Addenda: 0 I attest to the content of the Intraoperative Record and orders documented therein, exceptions below {[id number]}
--- NOTE | 2023-04-15 10:34 | Anesthesiology Progress Note ---
Date of Service April 15, 2023 Anesthesia Post Procedure Vital Signs Vital Signs: Temp Pulse Pulse Resp BP Pulse Ox O2 Del Method 04/15/23 10:08 67 20 135/78 97 Room Air 04/15/23 09:54 67 18 127/71 98 Room Air 04/15/23 09:39 68 16 117/70 98 Room Air 04/15/23 08:08 36.6 C 65 16 136/86 99 Room Air 04/15/23 04:12 36.6 C 69 18 126/69 98 Room Air 04/14/23 23:35 64 04/14/23 23:18 36.6 C 68 18 118/72 96 Room Air 04/14/23 19:20 36.3 C L 72 18 131/79 98 Room Air 04/14/23 15:25 36.7 C 73 18 112/70 95 Room Air 04/14/23 11:51 36.5 C 81 18 131/81 97 Room Air Transfer of Care Handoff Completed per policy Notes Mental Status: alert / awake / arousable and participated in evaluation Patient Amnestic to Procedure: Yes Nausea / Vomiting: adequately controlled Pain: adequately controlled Airway Patency, RR, SpO2: stable & adequate BP & HR: stable & adequate Hydration State: stable & adequate Anesthetic Complications: no major complications apparent and Pt Satisfied with anesthetic care
[2023-04-15] MEDS: DULoxetine HCL 60 MG CAP PO SCH (11:04)
[2023-04-15] MEDS: ATORVASTATIN 40 MG TAB PO SCH (13:18)
[2023-04-15 13:23] LABS: Basophils # (auto) 0.04 K/uL (0-0.2); Basophils % (auto) 0.6 %; Eosinophils # (auto) 0.38 K/uL (0-0.50); Eosinophils % (auto) 5.9 %; Hematocrit (blood only) 25.2 % (42.0-52.0); Hemoglobin 8.7 g/dl (14.0-18.0); Immature Granulocytes # (auto) 0.02 K/uL (0.01-0.20); Immature Granulocytes % (auto) 0.3 %; Lymphocytes # (auto) 1.81 K/uL (1.2-3.4); Mean Corpuscular Hemoglobin 32.5 pg (25.0-34.0); Mean Corpuscular Hgb Conc 34.5 g/dL (32.0-36.0); Mean Platelet Volume 11.7 fL (9.4-12.4); Monocytes % (auto) 9.3 %; Neutrophils # (auto) 3.62 K/uL (1.40-6.50); Neutrophils % (auto) 55.9 %; Platelet Count 149 K/uL (130-400); RDW Coefficient of Variation 13.2 % (11.5-14.5); Red Blood Count 2.68 M/uL (4.70-6.10); White Blood Count 6.47 K/ul (4.8-10.8)
[2023-04-15] MEDS: PANTOprazole 40 MG TAB PO SCH (20:38)
[2023-04-16 05:08] LABS: Basophils # (auto) 0.04 K/uL (0-0.2); Basophils % (auto) 0.6 %; Eosinophils # (auto) 0.33 K/uL (0-0.50); Eosinophils % (auto) 4.9 %; Hematocrit (blood only) 23.8 % (42.0-52.0); Hemoglobin 8.4 g/dl (14.0-18.0); Immature Granulocytes # (auto) 0.02 K/uL (0.01-0.20); Immature Granulocytes % (auto) 0.3 %; Lymphocytes % (auto) 29.7 %; Mean Corpuscular Hemoglobin 31.9 pg (25.0-34.0); Mean Corpuscular Hgb Conc 35.3 g/dL (32.0-36.0); Mean Corpuscular Volume 90.5 fL (80.0-100.0); Mean Platelet Volume 11.4 fL (9.4-12.4); Monocytes # (auto) 0.57 K/uL (0.11-0.59); Monocytes % (auto) 8.5 %; Neutrophils # (auto) 3.77 K/uL (1.40-6.50); Platelet Count 145 K/uL (130-400); RDW Coefficient of Variation 12.9 % (11.5-14.5); RDW Standard Deviation 41.9 fL (36.4-46.3); Red Blood Count 2.63 M/uL (4.70-6.10); White Blood Count 6.73 K/ul (4.8-10.8)
[2023-04-16] MEDS: ATORVASTATIN 40 MG TAB PO SCH (08:12)
[2023-04-16] MEDS: DULoxetine HCL 60 MG CAP PO SCH (08:13)
[2023-04-16] MEDS: PANTOprazole 40 MG TAB PO SCH (08:13)
[2023-04-16] MEDS: ACETAMINOPHEN 325 MG TAB PO PRN (08:16)
--- NOTE | 2023-04-16 09:34 | Gastroenterology Progress Note ---
Date of Service April 16, 2023 Assessment & Plan (1) Esophagitis: Plan: 72-year-old with a longstanding history of use of Mobic presenting with anemia and evidence of esophagitis on the CT scan s/p EGD w/ pill induced esophagitis, ?Cochran's and large HH - Advance diet as tolerated - No contraindication to discharge - Follow an antireflux regimen. - Use Protonix (pantoprazole) 40 mg PO BID for 3 months then once daily for fpc. - Repeat upper endoscopy in 2 months to check healingand biopsy the Cochran's area. No aspirin, ibuprofen, naproxen, Meloxicam or other non-steroidal anti- inflammatory drugs. - Recall GI if needed. Thank you for allowing us to participate in the care of this patient. Please call with any acute changes, questions or concerns. Please see addendum below with additional recommendation from my supervising physician. Admission and Anticipated Discharge Date Admission Date: April 13, 2023 Supervising Physician Co-Signing Physician Notes I performed a history and physical examination of the patient today, including specifically on physical exam - soft abdomen. I have discussed the patient's management with the advanced practitioner. Please refer to the nurse practitioner's note for the documented findings and plan of care. H/H stable Recall GI if needed. Subjective Feeling well No abd pain Tolerating PO No nausea, vomiting. Review of Systems Review of Systems: All systems reviewed & are unremarkable except as noted in HPI & below Physical Exam Constitutional: WD/WN, vitals as above Respiratory: normal respiratory effort, lungs clear to auscultation Cardiovascular: Rate/Rhythm: regular rate and regular rhythm Gastrointestinal (Abdomen): normal bowel sounds, soft, nontender, no hepatosplenomegaly Skin: no rashes, warm and dry Results & Data Vital Signs (Past 12 Hours) Vital Signs Temp Pulse Pulse Resp BP Pulse Ox O2 Del Method 04/16/23 08:14 36.6 C 80 18 137/85 96 Room Air 04/16/23 03:45 36.6 C 63 16 130/72 97 Room Air 04/15/23 23:44 57 L 04/15/23 22:33 36.7 C 60 16 134/76 99 Room Air Laboratory Results 04/16/23 04/15/23 Range/Units 04:53 12:13 WBC 6.73 6.47 (4.8-10.8) K/ul RBC 2.63 L 2.68 L (4.70-6.10) M/uL Hgb 8.4 L 8.7 L (14.0-18.0) g/dl Hct 23.8 L 25.2 L (42.0-52.0) % MCV 90.5 94.0 D (80.0-100.0) fL MCH 31.9 32.5 (25.0-34.0) pg MCHC 35.3 34.5 (32.0-36.0) g/dL RDW Std Deviation 41.9 45.0 (36.4-46.3) fL RDW Coeff of Melanie 12.9 13.2 (11.5-14.5) % Plt Count 145 149 (130-400) K/uL MPV 11.4 11.7 (9.4-12.4) fL Immature Gran % (Auto) 0.3 0.3 % Neut % (Auto) 56.0 55.9 % Lymph % (Auto) 29.7 28.0 % Reynolds % (Auto) 8.5 9.3 % Eos % (Auto) 4.9 5.9 % Baso % (Auto) 0.6 0.6 % Neut # (Auto) 3.77 3.62 (1.40-6.50) K/uL Lymph # (Auto) 2.00 1.81 (1.2-3.4) K/uL Reynolds # (Auto) 0.57 0.60 H (0.11-0.59) K/uL Eos # (Auto) 0.33 0.38 (0-0.50) K/uL Baso # (Auto) 0.04 0.04 (0-0.2) K/uL Immature Gran # (Auto) 0.02 0.02 (0.01-0.20) K/uL
--- NOTE | 2023-04-30 18:14 | Discharge Summary ---
Discharge Summary Date of Service April 30, 2023 Delayed entry date of service April 16, 2023 Notes For Next Care Provider Medication Changes From Visit Protonix - for esophageal ulcers - Take twice a day for 3 months, then daily indefinitely - Always take at least 30 minutes before meals No aspirin, ibuprofen, naproxen, Meloxicam or other non-steroidal anti- inflammatory drugs. Admission HPI Per Admitting Provider 72 year old presents with SOB, tachycardia, abdominal fullness and hypotension. Last night, he started to feel abdominal 'fullness' in his med abdomen. He tried to self induce vomiting due to the fullness feeling but was unsuccessful. He couldnt sleep with how uncomfortable he was feeling. He was sitting in a chair this afternoon and stood and felt his heart rate increase; his who is an RN took his pulse and it was in the 130's. Known H/O GIB x 30 years ago related to aspirin and NSAID use. Hgb 11.9; baseline 13-15. BUN elevated 65 , creatinine 0.96. T/S and consent obtained in ED. Trop negative. Abd/Pelvic CT: Mild circumferential thickening of the distal esophagus with a small hiatus hernia. This favors a mild esophagitis. No bowel wall thickening or obstruction. Colonic diverticulosis. No evidence for acute diverticulitis. Moderate fecal retention. CXR negative for acute cardiopulmonary process. Questionable 9 mm nodule within the right midlung zone. This could represent a nipple shadow. Follow-up nonemergent PA and lateral views of the chest are recommended for further evaluation. Protonix IV, NPO, GI consult with fluid resuscitation. Other PMH HTN, HLD, depression. Pt had arachnoiditis and had back surgery at [facility] in October 2022. He is scheduled to have R hip replacement in May 2023 at [facility] with Dr. Jordan. He indicates he is more sedentary as he prepares for his upcoming surgery; higher risk for PE; will order D-Dimer. Hgb: 11.9; baseline 14-15. FOBT negative. BUN 60s was otherwise normal. Denies tobacco or recreational drug use. Drinks two - three days per week; drinking two - three beers on those days but can go weeks without an alcoholic drink. Pt denies BELTRAN, dizziness, Chest pain, palpitations, hematochezia, melena, coffee ground emesis, nausea, vomiting, diarrhea, abdominal pain or tenderness, stool or urine changes, recent falls or trauma. Suspect that his symptomatic anemia may be related to an upper GIB starting to evolve as his Hgb has dropped, has been taking Meloxicam daily and the fullness feeling in his epigastrum. Responded well to IV fluids; HR resolved back to normal with some PVC's. Patient will be admitted for further evaluation and management. Please see A/P for further details. Admission Exam Per Admitting Provider Neuro: AAOx4, PERRLA, no aphagia, memory changes, CNII-XII grossly intact HEENT: head normocephalic, moist mucus membranes CV: S1/S2, (-) M/G/R, (-) edema, cap refill < 3 seconds Resp: Lungs CTA in all hart. On RA GI: Abdomen large S/NT/ND, Ax4 bowel sounds, (-) CVA tenderness Musculoskeletal: 5/5 B/L UE strength, 5/5 B/L LE strength. No gait disturbance Skin: (-) rashes , (-) erythema. Psych: euthymic mood Principal Dx & Hospital Course #1 = Principal Diagnosis (1) Symptomatic anemia: (2) Hypertension: (3) GERD (gastroesophageal reflux disease): (4) Hyperlipidemia: (5) History of GI bleed: Plan per admitting service notes with addendum: 72 year old presents with SOB, tachycardia, abdominal fullness and hypotension. Last night, he started to feel abdominal 'fullness' in his med abdomen. He tried to self induce vomiting due to the fullness feeling but was unsuccessful. He couldnt sleep with how uncomfortable he was feeling. He was sitting and stood and felt his heart rate climb; his who is an RN took his pulse and it was in the 130's. H/O GIB x 30 years ago related to aspirin and NSAID use. Hgb 11.9; baseline 13-15. BUN elevated 65 without creatinine bump. T/S and consent obtained in ED. Trop negative. Abd/Pelvic CT: Mild circumferential thickening of the distal esophagus with a small hiatus hernia. This favors a mild esophagitis. No bowel wall thickening or obstruction. Colonic diverticulosis. No evidence for acute diverticulitis. Moderate fecal retention. Protonix gtt, NPO, GI consult. Other PMH HTN, HLD, depression. Symptomatic Anemia Possible acute blood loss anemia Suspect Upper GIB; H/O GIB 30 years ago Abdomen/Pelvis CT: Mild circumferential thickening of the distal esophagus with a small hiatus hernia. This favors a mild esophagitis. No bowel wall thickening or obstruction. Colonic diverticulosis. No evidence for acute diverticulitis. Moderate fecal retention. Hemoglobin 11.9, currently 9.3-->8.4 asymptomatic s/p EGD: (+) hiatal hernia, Cochran's esophagus Protonix drip--> Protonix PO BID x 3 months, then daily tolerating diet well Arthritis H/O Back Surgery Arachnoiditis; surgery performed at [facility] in 10/2022. Has been more sedentary since his surgery Right hip replacement scheduled for 05/[address] Jordan Takes Meloxicam; hold for now due to increased risk for bleeding Check D-Dimer for increased PE risk: 540 HTN: resume Losartan HCTZ HLD: takes Atorvastatin; continue Alcohol use: drinks 2-3 beers 2-3 times per week no Signs of alcohol withdrawal Abnormal CT Findings RIGHT middle lobe nodule measures 11 mm, follow-up as per Fleischner Society guidelines. The prostate gland is mildly enlarged. Please refer to full report in the Ordered Studies section above Further work up, management, and ff up as outpatient Disposition: d/c home PCP in 1 week Discharge Exam General- oriented x 3, not in distress, speaks in sentences with no effort or accessory muscle use Eyes- anicteric Neck- no JVD Lungs- clear breath sounds bilaterally, no rales/wheezes Heart- normal rate, regular rhythm; no murmurs Abdomen- normal bowel sounds, nondistended, soft, nontender Extremities- no pretibial edema, no calf tenderness Neuro- alert, oriented x 3; no gross focal neurologic deficits Skin- warm & dry Updated Medication List Medication Instructions Recorded Confirmed Type albuterol sulfate 90 mcg/actuation 1 puff inhalation Q6H PRN Wheezing 09/03/18 04/13/23 History aerosol inhaler atorvastatin 40 mg tablet 40 mg PO DAILY 01/28/22 04/13/23 History acetaminophen 500 mg tablet 500 mg PO BID PRN Pain 04/13/23 04/13/23 History losartan 100 1 tab PO QAM 04/13/23 04/13/23 History mg-hydrochlorothiazide 12.5 mg tablet duloxetine 60 mg capsule,delayed 60 mg PO DAILY 04/14/23 04/14/23 History release (Cymbalta) pantoprazole 40 mg tablet,delayed 40 mg PO BID 30 days #60 tabs 04/16/23 Rx release Hospital Stay Data Consultations 04/13/23 18:28 Consult Gastroenterology Routine Procedures Performed Operation Date: 04/15/23 17:00 Actual Procedures p Esophagogastroduodenoscopy - Ying Orourke MD Diagnostic Imagining Performed Laboratory Results WBC 6.73 K/ul (4.8-10.8) 04/16/23 04:53 RBC 2.63 M/uL (4.70-6.10) L 04/16/23 04:53 Hgb 8.4 g/dl (14.0-18.0) L 04/16/23 04:53 Hct 23.8 % (42.0-52.0) L 04/16/23 04:53 MCV 90.5 fL (80.0-100.0) 04/16/23 04:53 MCH 31.9 pg (25.0-34.0) 04/16/23 04:53 MCHC 35.3 g/dL (32.0-36.0) 04/16/23 04:53 RDW Std Deviation 41.9 fL (36.4-46.3) 04/16/23 04:53 RDW Coeff of Melanie 12.9 % (11.5-14.5) 04/16/23 04:53 Plt Count 145 K/uL (130-400) 04/16/23 04:53 MPV 11.4 fL (9.4-12.4) 04/16/23 04:53 Immature Gran % (Auto) 0.3 % 04/16/23 04:53 Neut % (Auto) 56.0 % 04/16/23 04:53 Lymph % (Auto) 29.7 % 04/16/23 04:53 Lamar % (Auto) 8.5 % 04/16/23 04:53 Eos % (Auto) 4.9 % 04/16/23 04:53 Baso % (Auto) 0.6 % 04/16/23 04:53 Neut # (Auto) 3.77 K/uL (1.40-6.50) 04/16/23 04:53 Lymph # (Auto) 2.00 K/uL (1.2-3.4) 04/16/23 04:53 Lamar # (Auto) 0.57 K/uL (0.11-0.59) 04/16/23 04:53 Eos # (Auto) 0.33 K/uL (0-0.50) 04/16/23 04:53 Baso # (Auto) 0.04 K/uL (0-0.2) 04/16/23 04:53 Immature Gran # (Auto) 0.02 K/uL (0.01-0.20) 04/16/23 04:53 PT 11.5 Seconds (9.0-12.0) 04/13/23 14:16 INR 1.1 (0.9-1.1) 04/13/23 14:16 APTT 23.9 Seconds (21.0-31.0) 04/13/23 14:16 PTT Ratio 0.8 04/13/23 14:16 D-Dimer 540 ug/L FEU (0-500) H* 04/13/23 19:51 Sodium 139 mmol/L (136-145) 04/14/23 04:04 Potassium 3.5 mmol/L (3.5-5.1) 04/14/23 04:04 Chloride 107 mmol/L (98-107) 04/14/23 04:04 Carbon Dioxide 25 mmol/L (21-32) 04/14/23 04:04 Anion Gap 7 (3-11) 04/14/23 04:04 BUN 48 mg/dl (6-23) H 04/14/23 04:04 Creatinine 0.87 mg/dl (0.6-1.4) 04/14/23 04:04 Est Cr Clr Drug Dosing 109.7 ml/min 04/14/23 04:04 Est GFR ( Amer) 99.2 ml/min 04/14/23 04:04 Est GFR (Non-Af Amer) 85.6 ml/min 04/14/23 04:04 BUN/Creatinine Ratio 55.2 (10-20) H 04/14/23 04:04 Glucose 100 mg/dl (70-99(Fasting)) H 04/14/23 04:04 POC Glucose 146 mg/dl (70-99) H 04/13/23 14:39 Calcium 8.6 mg/dl (8.6-10.3) 04/14/23 04:04 Magnesium 1.7 mg/dl (1.7-2.4) 04/13/23 14:16 Iron 51 mcg/dl (35-175) 04/16/23 04:53 Total Bilirubin 0.4 mg/dl (0.2-1.0) 04/14/23 04:04 AST 13 U/L (13-39) 04/14/23 04:04 ALT 16 U/L (7-52) 04/14/23 04:04 Alkaline Phosphatase 77 U/L (34-104) 04/14/23 04:04 Troponin I High Sens 7.3 pg/ml (0-20) 04/13/23 14:16 Total Protein 5.7 gm/dl (6.0-8.3) L 04/14/23 04:04 Albumin 3.5 gm/dl (3.4-5.0) 04/14/23 04:04 Globulin 2.2 gm/dl (2.5-4.0) L 04/14/23 04:04 Albumin/Globulin Ratio 1.6 (0.9-2) 04/14/23 04:04 Stool Occult Bld Scrn Positive (Negative) A 04/14/23 14:26 SARS-CoV-2, RNA, NAAT NEGATIVE (NEGATIVE) 04/13/23 16:46 Blood Type O Positive 04/13/23 14:16 Antibody Screen NEGATIVE 04/13/23 14:16 Antibody Identification Cancelled 04/13/23 14:16 Antibody ID Comment Cancelled 04/13/23 14:16 Crossmatch See Detail 04/13/23 14:16 Impressions Abdomen/Pelvis CT 04/13/23 14:[address] WITH IV CONTRAST CT DOSE: 1549.61 mGy.cm HISTORY: bloated, lower abdominal pain, hist gI bleed TECHNIQUE: Multiaxial CT images of the abdomen and pelvis were performed following the use of intravenous contrast. A dose lowering technique was utilized adhering to the principles of ALARA. COMPARISON STUDY: Lumbar spine MRI 07/30/2022. FINDINGS: There are few punctate calcified granulomas within the right lower lobe. The left lung base is clear. There is a left total hip arthroplasty. Severe degenerative changes noted within the right hip. Stable 4.2 cm hypodense collection at the right L4-L5 hemilaminectomy site. This is better appreciated on the prior lumbar spine MRI. No acute fractures identified. Mild circumferential thickening of the distal esophagus and a small hiatus hernia. Coronary artery calcifications are noted. Dextroscoliosis of the lumbar spine. The liver, gallbladder, spleen, and adrenal glands unremarkable. There are few scattered punctate calcifications within the pancreas. No evidence for acute pancreatitis. The kidneys enhance normally. No hydronephrosis. No retrop eritoneal lymphadenopathy. The main portal vein is patent. Normal caliber abdominal aorta with mild calcified plaque. No pelvic free fluid or pelvic lymphadenopathy. The prostate gland is mildly enlarged. Normal bladder. Colonic diverticulosis. No evidence for acute diverticulitis. Moderate fecal retention. No bowel wall thickening or obstruction. Normal appendix. IMPRESSION: 1. Mild circumferential thickening of the distal esophagus with a small hiatus hernia. This favors a mild esophagitis. 2. Otherwise, no bowel wall thickening or obstruction. 3. Colonic diverticulosis. No evidence for acute diverticulitis. 4. Moderate fecal retention. 5. Normal appendix. 6. Additional findings as described above. ACT 112: Negative or not required by law. Electronically signed by: Aníbal Soares M.D. 04/13/2023 5:11 PM Chest CTA 04/13/23 21:19 Exam(s): CTA CHEST IV Amt: 84ML OPTIRAY 320 EXAM: CT Angiography Chest With Intravenous Contrast CLINICAL HISTORY: Reason for exam: PE. TECHNIQUE: Axial computed tomographic angiography images of the chest with intravenous contrast. CTDI is 35 mGy and DLP is 922.18 mGy-cm. Automated exposure control was utilized for the study. A dose lowering technique was utilized adhering to the principles of ALARA. MIP reconstructed images were created and reviewed. COMPARISON: No relevant prior studies available. FINDINGS: Pulmonary arteries: Unremarkable. No acute pulmonary embolism. Aorta: No acute findings. No thoracic aortic aneurysm. Lungs: RIGHT middle lobe nodule measures 11 mm, follow-up as per Fleischner Society guidelines. Pleural space: Unremarkable. No focal infiltrate, pleural effusion, or pneumothorax. Heart: Cardiomegaly. No significant pericardial effusion. No evidence of RV dysfunction. Mediastinum: Small hiatal hernia. Bones/joints: RIGHT shoulder arthroplasty. Degenerative changes of the spine. No acute fracture. No dislocation. Soft tissues: Unremarkable. Lymph nodes: Unremarkable. No enlarged lymph nodes. IMPRESSION: 1. No acute pulmonary embolism. 2. No focal infiltrate, pleural effusion, or pneumothorax. 3. RIGHT middle lobe nodule measures 11 mm, follow-up as per Fleischner Society guidelines. Electronically signed by: Camilo Scott MD 04/13/23 23:30 PM Chest X-Ray 04/14/23 04:11 XR chest 1V portable CLINICAL HISTORY: sob TECHNIQUE: Single frontal radiograph of the chest was obtained. Comparison: Comparison is made to chest radiograph 04/13/2023 FINDINGS: Exam is limited by underpenetration. The cardiomediastinal silhouette is normal. The lungs are clear. No evidence of pleural effusion or pneumothorax. IMPRESSION: No acute abnormalities and in particular no radiographic evidence of pneumonia. ACT 112: Negative or not required by law. Electronically signed by: Josias Thomas M.D. 04/14/2023 11:07 AM Pending Results Patient Have Any Pending Studies at Discharge: No Discharge Instructions Given to Patient (Per Discharging Provider) PLEASE REFER TO YOUR NEW MEDICATION LIST AND FOLLOW INSTRUCTIONS CAREFULLY. YOUR NEW MEDICATIONS INCLUDE: Protonix - for esophageal ulcers - Take twice a day for 3 months, then daily indefinitely - Always take at least 30 minutes before meals No aspirin, ibuprofen, naproxen, Meloxicam or other non-steroidal anti- inflammatory drugs. PLEASE CALL YOUR PRIMARY CARE PHYSICIAN OR RETURN TO THE ER IF WITH WORSENING OF SYMPTOMS, INCLUDING Abdominal pain, nausea vomiting, fevers or chills, blood in the stools, chest pain, shortness of breath, dizziness, etc. FOLLOW UP WITH PRIMARY CARE PHYSICIAN IN 1 WEEK. Total Time Total Time Spent Total Time Spent (In Minutes): >30 minutes
== END 2023-04-16 12:17 | disposition home or self-care (01) | DRG 381 ==
LOC: ED 13:37 → SUATTDRO 18:28 → 4W 18:28

== ENCOUNTER 2023-07-29 05:19 | Observation (INO) ==
--- NOTE | 2023-05-21 13:31 | PAT Medication Instructions ---
Medication Instructions Date of Service May 21, 2023 Home Medications Medication Instructions Recorded pantoprazole 40 mg tablet,delayed 40 mg PO BID 30 days #60 tabs 04/16/23 release albuterol sulfate 90 mcg/actuation aerosol inhaler 1 puff inhalation Q6H PRN Wheezing atorvastatin 40 mg tablet 40 mg PO QAM acetaminophen 500 mg tablet 500 - 1,000 mg PO BID PRN Pain losartan 100 mg-hydrochlorothiazide 12.5 mg tablet 1 tab PO QAM duloxetine 60 mg capsule,delayed release (Cymbalta) 60 mg PO QAM pantoprazole 40 mg tablet,delayed release 40 mg PO BID docusate sodium 100 mg capsule 100 mg PO DAILY PRN Constipation ferrous sulfate 325 mg (65 mg iron) tablet 325 mg PO UD magnesium oxide 400 mg PO QAM DO NOT take the morning of surgery losartan 100 mg-hydrochlorothiazide 12.5 mg tablet 1 tab PO QAM docusate sodium 100 mg capsule 100 mg PO DAILY PRN Constipation ferrous sulfate 325 mg (65 mg iron) tablet 325 mg PO UD magnesium oxide 400 mg PO QAM Take morning of surgery With a small sip of water, OTHERWISE NOTHING TO EAT OR DRINK AFTER MIDNIGHT: albuterol sulfate 90 mcg/actuation aerosol inhaler 1 puff inhalation Q6H PRN Wheezing (use if needed; please bring rescue inhaler with you to hospital day of surgery if possible) atorvastatin 40 mg tablet 40 mg PO QAM acetaminophen 500 mg tablet 500 - 1,000 mg PO BID PRN Pain (if needed) duloxetine 60 mg capsule,delayed release (Cymbalta) 60 mg PO QAM pantoprazole 40 mg tablet,delayed release 40 mg PO BID Take evening before surgery albuterol sulfate 90 mcg/actuation aerosol inhaler 1 puff inhalation Q6H PRN Wheezing (if needed) acetaminophen 500 mg tablet 500 - 1,000 mg PO BID PRN Pain (if needed) pantoprazole 40 mg tablet,delayed release 40 mg PO BID docusate sodium 100 mg capsule 100 mg PO DAILY PRN Constipation (if needed) Other Notes If you have any questions please call us at [phone] or [phone] or [phone] or [phone]
--- NOTE | 2023-07-02 09:45 | Anesthesiology Consultation ---
Date of Service July 02, 2023 Assessment & Plan (1) Encounter for pre-operative examination: - Infectious disease screening: Per assessment on 07/02/23: No known infectious disease contacts or current infectious disease symptoms. No noted Covid positive test result in past 90 days. - Outpatient joint assessment: Pt currently scheduled for inpatient pathway. If surgeon requests review for outpatient joint pathway, patient is not recommended candidate for outpatient joint program from anesthesia standpoint. - Cardiology visit (03/28/23): "He was last seen in October of 2021 for preoper ative risk assessment regarding hip surgery. The patient went on to have that surgery but then had a very difficult year developing a post up infection of the prosthetic hip. He was receiving antibiotics and recovering and then had to be seen emergently at the [facility] with what was thought to be a subdural hematoma of the spine that actually turned out to be arachnoiditis with compression of the spinal cord. He underwent surgery for removal a spinal web. He is still recovering from that surgery but is considering having a right total hip replacement later this year. He has no ongoing cardiac complaints.. History of sensed unifocal PVCs 2. Essential hypertension 3. Left total hip replacement with postop infection 4. 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 Plan: From a cardiac standpoint the patient is clinically stable and will continue his current medications. I recommended that we see him on an annual or as-needed basis however, he is considering having right hip surgery later this year. Once he has the surgery scheduled and is going to move forward then we can see him if necessary for preoperative risk assessment." Per surgeon orders, preop cardiology evaluation not indicated from their perspective. Patient seen at [facility] 07/02/23- currently asymptomatic/denies palpitations or cardiopulmonary complaints. - Urology visit (06/19/23): "potential implications of elevated PSA. We discussed potential benign explanations (inflammation, recent instrumentation) as well as the chance this may represent prostate cancer. We discussed the possibility of repeating PSA, to further establish a trend. We discussed the role of prostate biopsy to obtain a tissue diagnosis. We discussed the risks and benefits of transrectal ultrasound-guided biopsy, specifically we discussed the risks of infection/sepsis, blood in stool, urine or semen, potential for nondiagnostic biopsy or finding nonclinically significant cancer. We also discussed the role of prostate MRI in assessing his prostate and that this can help obtain a more directed biopsy. I suspect his elevated PSA is related to his acute UTI. We will treat the UTI and recheck.. We discussed trialing tamsulosin to see if this helps empty his bladder any better. He was amenable to trial of medication.. He likely has a component of BPH. 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 Chart Review Chart Review: Acceptable Risk for Surgery (pending evaluation DOS) and Patient seen in Pre Admission Testing Teaching & Discussion Pre-Anesthesia Teaching/Discussion Notes: Instructed NPO after midnight before surgery,except medications with 15 cc of water. Medication instructions provided according to the PAT guidelines. History Surgery Operation Date: 07/29/23 11:25 Proposed Procedures p Right Total Hip Arthroplasty Sonny - Lul Jordan DO Height/Weight Height: 6 ft 5 in Weight: 125.5 kg Allergies Allergy/AdvReac Type Severity Reaction Status Date / Time ibuprofen AdvReac Mild Nasal Verified 06/26/23 13:40 congestion Medications Home Medications Medication Instructions Recorded Confirmed Last Taken albuterol sulfate 90 mcg/actuation 1 puff inhalation Q6H PRN Wheezing 09/03/18 06/11/23 01/05/22 04:30 aerosol inhaler atorvastatin 40 mg tablet 40 mg PO QAM 01/28/22 06/11/23 06/11/23 06:30 acetaminophen 500 mg tablet 500 - 1,000 mg PO BID PRN Pain 04/13/23 06/11/23 06/09/23 losartan 100 1 tab PO QAM 04/13/23 06/11/23 06/11/23 06:30 mg-hydrochlorothiazide 12.5 mg tablet duloxetine 60 mg capsule,delayed 60 mg PO QAM 04/14/23 06/11/23 06/11/23 06:30 release (Cymbalta) pantoprazole 40 mg tablet,delayed 40 mg PO BID 30 days #60 tabs 04/16/23 06/11/23 06/11/23 06:30 release docusate sodium 100 mg capsule 100 mg PO DAILY PRN Constipation 05/10/23 06/11/23 Unknown ferrous sulfate 325 mg (65 mg 325 mg PO UD 05/10/23 06/11/23 06/11/23 06:30 iron) tablet magnesium oxide 400 mg PO QAM 05/10/23 06/11/23 06/11/23 06:30 meloxicam 15 mg tablet 15 mg PO QAM 05/31/23 06/11/23 06/10/23 sulfamethoxazole 800 1 tab PO BID 05/31/23 06/11/23 06/11/23 06:30 mg-trimethoprim 160 mg tablet tamsulosin 0.4 mg capsule 0.4 mg PO DAILY #90 caps 06/19/23 06/19/23 Unknown Past Medical History Medical History (Updated 07/02/23 @ 12:12 by Irish Cantu) 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 Patient asymptomatic. Restless legs Staphylococcus aureus bacteremia s/p DAVINA left 2021 > "resolved" Symptomatic anemia EGD 06/11/23 [facility]- hiatal hernia, maynard's Exercise / Class Metabolic Activity II 4-5 Yardwork/Stairs/Walk up hill (one FS (no CP, no SOB)) Past Family History Family History Other No family history of adverse response to anesthesia Past Surgical History Surgical History History of anesthesia reaction "Paranoid and climbing the lucas" History of cataract surgery R/L History of colonoscopy History of discectomy Lumbar region (x3 surgeries within 21 days) + revisions d/t "dura being cut" during initial surgery L4-5 History of endoscopic sinus surgery History of esophagogastroduodenoscopy (EGD) EGD (06/11/23): MAC at [facility] History of herniorrhaphy Umbilical History of lumbar laminectomy T4-T8 neurosurgeon in [facility] 07/2022 History of revision of total hip arthroplasty Left hip I&D (01/29/22): LMA#5 at [facility] (required picc line and home iv antibiotics, 2021) History of tonsillectomy and adenoidectomy History of tooth extraction History of total hip arthroplasty Left DAVINA (01/05/22): LMA#5, atraumatic at [facility] DAVINA done under [place], 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 (2016 lumbar MRI in chart) History of total shoulder replacement Right Hx of thumb surgery Right Slow to wake up after anesthesia Past Anesthesia History No Family Hx of Anesthesia Complications and Other ("Slow to wake", "sensitive" to narcotics, post-op hallucinations/ICU psychosis) History of PONV No Hx of PONV and No Hx of Motion Sickness Social History Smoking Status: Former smoker tobacco type: cigarettes Do You Dip or Chew Tobacco: No Smoking End Date: Quit age 24 Hx Alcohol Use: Yes Alcohol type: beer alcohol intake frequency: holidays/special occasions only Hx Substance Use: No substance use type: does not use Review of Systems Patient denies chest pain, shortness of breath, dyspnea on exertion, fever, chills, cough, wheezing, palpitations. Physical Exam Vital Signs VITALS BP 136/78 P 61 TEMP 98.2 SP02 96%RA RESP 16 PHYSICAL Full cervical extension range of motion. Full TMJ range of motion. TMD 3 finger breaths Mallampati Score 1 Dentition: lower front chipped tooth Lungs: clear throughout to auscultation Cardiac: regular rate and rhythm with occasional extra beat, no murmurs noted Spine: normal Carotid arteries: negative bruit Extremities: no LE edema Lab Results Anesthesia Preop Results Results Anesthesia Widget: PT 11.1 Seconds (9.0-12.0) 07/02/23 PTT 28.6 Seconds (21.0-31.0) 07/02/23 INR 1.0 (0.9-1.1) 07/02/23 Blood Type O Positive 07/02/23 Antibody Screen NEGATIVE 07/02/23 Testing Laboratory Results 07/01/23 WBC 5.73 H/H 13.4/41.0 PLATELETS 192 SODIUM 138 POTASSIUM 4.6 CHLORIDE 101 CO2 24 BUN 26 CREATININE 1.2 GLUCOSE 155 Electrocardiogram Date: 07/02/23 Sinus rhythm with premature supraventricular complexes at 62 bpm. 1st degree AVB. LAD. Chest X-Ray Date: 04/14/23 Findings: + NAD Echocardiogram Date: 01/30/22 EF 55 to 60%. Grade 1 diastolic dysfunction. LV wall motion is normal. Trivial mitral and tricuspid regurgitation. No evidence of mass or vegetation. "This does not rule out endocarditis" per report. Stress Test Date: 06/02/20 Type: exercise Stress echo/EKG negative for ischemia. Exercise capacity is average. Occasional PVCs noted with stress. 102% MPHR. 9.9 METS. LVEF 55-59%. Mildly increased concentric LV wall thickness. Grade 1 diastolic dysfunction. No significant valvular disease.
--- NOTE | 2023-07-25 06:52 | History & Physical Report ---
Date of Service July 25, 2023 Assessment & Plan (1) Osteoarthritis of right hip: We will proceed with a right anterior total of arthroplasty. Postoperatively he will be started on aspirin for DVT prophylaxis and kept overnight in the hospital for postop medical management. He plans to use [facility] at home upon discharge. History of Present Illness Chief Complaint: Osteoarthritis of the right hip. Primary Care Provider: Melquiades Persaud MD Dax is a pleasant 72-year-old male who I did a left hip replacement on over a year ago. The hip was doing well, but he developed a postoperative infection. He required 6 weeks of IV antibiotics and oral antibiotics. Fortunately, this infection subsided. He is now dealing with more right hip and groin pain. It has been bothering him more and more. Most of his pain is located in his groin. He is struggling with the hip. X-rays and clinical examination been diagnostic for worsening osteoarthritis of the right hip. After failing conservative treatment, he has elected to proceed with a right anterior total of arthroplasty. Allergies Allergy/AdvReac Type Severity Reaction Status Date / Time ibuprofen AdvReac Mild Nasal Verified 06/26/23 13:40 congestion Home Medications Medication Instructions Recorded Confirmed Type albuterol sulfate 90 mcg/actuation 1 puff inhalation Q6H PRN Wheezing 09/03/18 06/11/23 History aerosol inhaler atorvastatin 40 mg tablet 40 mg PO QAM 01/28/22 06/11/23 History acetaminophen 500 mg tablet 500 - 1,000 mg PO BID PRN Pain 04/13/23 06/11/23 History losartan 100 1 tab PO QAM 04/13/23 06/11/23 History mg-hydrochlorothiazide 12.5 mg tablet duloxetine 60 mg capsule,delayed 60 mg PO QAM 04/14/23 06/11/23 History release (Cymbalta) pantoprazole 40 mg tablet,delayed 40 mg PO BID 30 days #60 tabs 04/16/23 06/11/23 Rx release docusate sodium 100 mg capsule 100 mg PO DAILY PRN Constipation 05/10/23 06/11/23 History ferrous sulfate 325 mg (65 mg 325 mg PO UD 05/10/23 06/11/23 History iron) tablet magnesium oxide 400 mg PO QAM 05/10/23 06/11/23 History meloxicam 15 mg tablet 15 mg PO QAM 05/31/23 06/11/23 History sulfamethoxazole 800 1 tab PO BID 05/31/23 06/11/23 History mg-trimethoprim 160 mg tablet tamsulosin 0.4 mg capsule 0.4 mg PO DAILY #90 caps 06/19/23 06/19/23 Rx Past Med/Surg History Medical History Adhesive arachnoiditis Dx 07/2022- requiring surgical intervention Asthma GERD (gastroesophageal reflux disease) Hearing deficit Hiatal hernia History of GI bleed 03/2023 hospitalized at [place] Hx of gout Hyperlipidemia Hypertension 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 Patient asymptomatic. Restless legs Staphylococcus aureus bacteremia s/p DAVINA left 2021 > "resolved" Symptomatic anemia EGD 06/11/23 [facility]- hiatal hernia, maynard's Surgical History History of anesthesia reaction "Paranoid and climbing the lucas" History of cataract surgery R/L History of colonoscopy History of discectomy Lumbar region (x3 surgeries within 21 days) + revisions d/t "dura being cut" during initial surgery L4-5 History of endoscopic sinus surgery History of esophagogastroduodenoscopy (EGD) EGD (06/11/23): MAC at [facility] History of herniorrhaphy Umbilical History of lumbar laminectomy T4-T8 neurosurgeon in [facility] 07/2022 History of revision of total hip arthroplasty Left hip I&D (01/29/22): LMA#5 at [facility] (required picc line and home iv antibiotics, 2021) History of tonsillectomy and adenoidectomy History of tooth extraction History of total hip arthroplasty Left DAVINA (01/05/22): LMA#5, atraumatic at [facility] DAVINA done under [place], 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 (2016 lumbar MRI in chart) History of total shoulder replacement Right Hx of thumb surgery Right Slow to wake up after anesthesia Family History Other No family history of adverse response to anesthesia Social History Smoking Status: Former smoker Tobacco Type: Cigarettes Second Hand Exposure: No; Do You Dip or Chew Tobacco: No; Hx Alcohol Use: Yes Alcohol type: beer Hx Substance Use: No Preferred Language: Amharic 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 Physical Exam On physical examination of the right hip, he has decreased range of motion. He has pain with forced internal/external rotation. All of his pain is located in his groin.. Constitutional WD/WN, vitals as above Eyes PERRL, conjunctivae normal, anicteric sclerae ENMT external ear and nose normal, oropharynx normal Neck trachea midline, no thyromegaly Respiratory normal respiratory effort, lungs clear to auscultation Cardiovascular RRR, no murmur, no edema Gastrointestinal (Abdomen) normal bowel sounds, soft, nontender, no hepatosplenomegaly Skin no rashes, warm and dry Psychiatric A+Ox3, euthymic affect Results & Data Results & Data Laboratory Results . Diagnostic Findings X-rays of the right hip and pelvis show advanced osteoarthritis with joint space narrowing, osteophyte formation, and [id number] articulation. PG Care Time/CCT Total # of Minutes Spent Total Time Spent with Patient: Total time spent is greater than 50% in coordination of care (as documented) at patient's floor/unit and/or counseling patient: Coding Level of Care Code None Diagnoses Osteoarthritis of right hip M16.11
[2023-07-29] MEDS ORDERED: TRANEXAMIC ACID 1,000 MG **IV Intra-op IV SCH (06:00)
[2023-07-29] MEDS ORDERED: GABAPENTIN 300 MG CAP PO SCH (06:00)
[2023-07-29] MEDS ORDERED: FAMOTIDINE 20 MG TAB PO SCH (06:00)
[2023-07-29] MEDS ORDERED: dexAMETHasone 4 MG TAB PO SCH (06:00)
[2023-07-29] MEDS ORDERED: ORTHO JOINT MIX INFIL SCH (06:00)
[2023-07-29] MEDS ORDERED: LR 15ML/HR IV SCH (06:00)
[2023-07-29] MEDS ORDERED: TRANEXAMIC ACID 1,000 MG **IV Pre-op IV SCH (06:00)
[2023-07-29] MEDS ORDERED: LR 60ML/HR IV SCH (06:00)
[2023-07-29] MEDS ORDERED: ACETAMINOPHEN 500 MG TAB PO SCH (06:00)
[2023-07-29] MEDS ORDERED: BUPIVACAINE 0.5 % 5 MG/1 ML PF 10ML VIAL ONE (06:19)
[2023-07-29] MEDS ORDERED: MIDAZOLAM HCL 1 MG/ML 2ML VIAL ONE (06:38)
[2023-07-29] MEDS ORDERED: fentaNYL citrate PF 100 MCG/2 ML VIAL ONE (06:38)
--- NOTE | 2023-07-29 06:40 | History & Physical Bridge Note ---
Date of Service July 29, 2023 History & Physical Bridge Note I have examined the patient, reviewed the History & Physical and in the interval since the performance of the History & Physical I have noted the following changes of clinical significance: no changes noted
[2023-07-29] MEDS ORDERED: ATROPINE SULFATE 0.1 MG/ML 10ML SYR IV PRN (06:46)
[2023-07-29] MEDS ORDERED: fentaNYL citrate PF 100 MCG/2 ML VIAL IV PRN (06:46)
[2023-07-29] MEDS ORDERED: HYDROmorphone INJ 1 MG/ML SYRINGE IV PRN (06:46)
[2023-07-29] MEDS ORDERED: ePHEDrine sulfate 50 MG/ML AMP IV PRN (06:46)
[2023-07-29] MEDS ORDERED: ONDANSETRON INJ 2 MG/ML 2 ML VIAL IV PRN ×2 (06:46→12:36)
[2023-07-29] MEDS ORDERED: ORTHO JOINT ANESTHETIC ONE (06:54)
[2023-07-29] MEDS ORDERED: HYDROmorphone INJ 2 MG/ML SYR/VIAL ONE (07:13)
[2023-07-29] MEDS ORDERED: DEXAMETHASONE SOD INJ 4 MG/ML VIAL ONE ×2 (07:24→07:25)
[2023-07-29] MEDS ORDERED: PROPOFOL IV EMULSION 10 MG/ML 20 ML VIAL IV ONE (07:24)
[2023-07-29] MEDS ORDERED: LIDOCAINE 2% 2 ML VIAL/AMP(20MG/ML) INFIL ONE (07:24)
[2023-07-29] MEDS ORDERED: ONDANSETRON INJ 2 MG/ML 2 ML VIAL ONE (07:25)
--- NOTE | 2023-07-29 08:23 | Operative Report ---
PG Post Operative Report Pre & Post Diagnosis Operation Date: 07/29/23 07:00 Pre-Op Diagnosis: Degenerative Joint Disease Hip Right Post-Op Diagnosis: Degenerative Joint Disease Hip Right I identified the patient and participated in the time-out.: Yes Procedure Operation Date: 07/29/23 07:00 Actual Procedures p Right Total Hip Arthroplasty Anterior(Right) - Lul Jordan DO Surgeon Lul Jordan DO Computer Systems Integrator Lul Gamino PA-C Estimated Blood Loss 250 Findings Consistent with Post-Op Diagnosis Specimens Right femoral head Description of Procedure Implants used I used a ZimmerBiomet total hip arthroplasty system with a size 5 high offset Avenir Complete stem, a 60 mm G7 cup with a 25mm screw, an E1 polyethylene liner, a 40 mm ceramic head with a +7 neck. Dax arrived at the hospital for the above procedure. He was seen in the preoperative holding area and the operative extremity was identified and signed. He was given a spinal anesthetic, a preoperative antibiotic, and TXA. He was then taken back to the operating room and laid on the table in the supine position. He was given basic sedation. The operative leg was secured to a Puristst leg positioner. The hip was then prepped and draped in sterile fashion. A timeout was done and the patient and the operative extremity was properly identified. An anterior approach was used. Dissection was taken down through the fascia and the tensor muscle belly was retracted laterally and the rectus was retracted medially. The circumflex vessels were identified and ligated. The capsule was then incised and tagged for later repair. The femoral neck was then cut and the femoral head was removed. The acetabulum was exposed. Time was spent doing a complete circumferential labral release. Sequential reaming of the acetabulum up to a size 59 reamer was done. Final reamings were done under fluoroscopy to ensure appropriate version. A Biomet 60 mm G7 cup was then impacted into place. A single 25 mm screw was placed. The E1 polyethylene liner was then snapped into place. Surrounding soft tissues were then injected with 100 cc of an orth opedic pain control cocktail. The proximal femur was then exposed. Sequential broaching up to a size 5 broach was done. Off that broach a size 40 head with a +7 neck was trialed. The hip was reduced and fluoroscopic images showed anatomic alignment of the implants in acceptable length. The broach was removed. The final size 5 high offset Avenir Complete stem was then impacted into place. A ceramic 40 mm head with a +7 neck was then impacted onto the stem and the hip was reduced. Final fluoroscopic images showed anatomic alignment of the hip. The capsule was then closed with #1 Vicryl suture. A dilute betadyne lavage was then done for 3 minutes. The joint was then irrigated with normal saline solution. The fascia was closed with #1 PDS suture. Skin was closed with 2-0 Vicryl, edie, and a Silverlon dressing. He was then transferred to a hospital bed and taken to the post anesthesia care unit in stable condition. He tolerated the procedure well. Lul Gamino PA-C, was present for the entire procedure. He was critical for patient positioning, prepping, draping, retraction exposure, wound closure and application of sterile dressing. I attest to the content of the Intraoperative Record and any orders documented therein. Any exceptions are noted below.
--- NOTE | 2023-07-29 08:40 | Fluoroscopy Report ---
FL hip RT 1V CLINICAL HISTORY: RIGHT ANTERIOR HIP 1 VIEW COMPARISON STUDY: None. FLUOROSCOPY TIME: 18 seconds FLUOROSCOPY IMAGES: 1 Ka,r: 5.1 mGy FINDINGS: There is a right total hip arthroplasty. The hardware appears intact. No fracture or disloc ation. IMPRESSION: Fluoroscopic assistance as above. ACT 112: Negative or not required by law. Electronically signed by: Aníbal Soares M.D. 07/29/2023 8:38 AM
--- NOTE | 2023-07-29 10:12 | XRay Report ---
SINGLE VIEW PELVIS; SINGLE VIEW RIGHT HIP CLINICAL HISTORY: Postoperative examination. FINDINGS: An AP portable view of the hips and pelvis with a crosstable lateral portable view of the r ight hip are compared to study dated 01/05/2022. A bipolar right hip arthroplasty is in near-anatomic a lignment. A single cortical lag screw transfixes the acetabular cup. No acute fracture is identified. There are expected postoperative changes overlying the right hip including skin clips, subcutaneous gas, and soft tissue swelling. A left hip arthroplasty is unchanged in position. IMPRESSION: Expected postoperative findings status post right hip arthroplasty. No acute fracture is seen. ACT 112: Negative or not required by law. Electronically signed by: True Hwang M.D. 07/29/2023 10:11 AM
--- NOTE | 2023-07-29 10:54 | Anesthesiology Progress Note ---
Date of Service July 29, 2023 Anesthesia Post Procedure Vital Signs Vital Signs: Temp Pulse Pulse Resp BP BP Pulse Ox 07/29/23 10:40 91 H 11 L 115/80 96 07/29/23 10:25 92 H 12 138/90 96 07/29/23 10:10 97 H 12 135/82 94 07/29/23 09:55 97.9 F 88 12 153/78 H 93 07/29/23 09:45 100 H 13 130/83 94 07/29/23 09:35 90 17 140/83 94 07/29/23 09:15 93 H 12 126/77 90 07/29/23 09:25 88 13 146/78 H 92 07/29/23 09:05 90 15 156/78 H 96 07/29/23 08:55 90 10 L 147/95 H 92 07/29/23 08:49 97.7 F 92 H 10 L 146/83 H 96 07/29/23 05:54 97.5 F L 66 20 177/97 H 96 O2 Del Method O2 Flow Rate 07/29/23 10:40 Nasal Cannula 2 07/29/23 10:25 Nasal Cannula 2 07/29/23 10:10 Nasal Cannula 2 07/29/23 09:55 Nasal Cannula 2 07/29/23 09:45 Nasal Cannula 2 07/29/23 09:35 Nasal Cannula 2 07/29/23 09:15 Room Air 07/29/23 09:25 Nasal Cannula 2 07/29/23 09:05 Oxymask 2 07/29/23 08:55 Oxymask 6 07/29/23 08:49 Oxymask 6 07/29/23 05:54 Room Air Transfer of Care Handoff Completed per policy Notes Mental Status: alert / awake / arousable and participated in evaluation Patient Amnestic to Procedure: Yes Nausea / Vomiting: adequately controlled Pain: adequately controlled Airway Patency, RR, SpO2: stable & adequate BP & HR: stable & adequate Hydration State: stable & adequate Anesthetic Complications: no major complications apparent and Pt Satisfied with anesthetic care
[2023-07-29] MEDS ORDERED: oxyCODONE HCL IR 5 MG TAB (IMMEDIATE RELEASE) PO PRN (12:36)
[2023-07-29] MEDS ORDERED: SODIUM CHLORIDE 0.9% 1,000 ML IV SCH (12:36)
[2023-07-29] MEDS ORDERED: METOCLOPRAMIDE HCL INJ 5 MG/ML 2 ML VIAL IV PRN (12:36)
[2023-07-29] MEDS ORDERED: MAGNESIUM HYDROXIDE SUSP 30 ML UDC PO PRN (12:36)
[2023-07-29] MEDS ORDERED: ALBUTEROL HFA 8 GM INHALER INH PRN (12:36)
[2023-07-29] MEDS ORDERED: NALOXONE HCL 0.4 MG/1 ML VIAL/CARP IV PRN (12:36)
[2023-07-29] MEDS ORDERED: HYDROmorphone INJ 0.5 MG/0.5 ML SYR IV PRN (12:36)
[2023-07-29] MEDS ORDERED: bisacodyL 10 MG SUPP PR PRN (12:36)
[2023-07-29] MEDS: COLCHICINE 0.6 MG TAB PO SCH (13:20)
[2023-07-29] MEDS: allopurinoL 100 MG TAB PO SCH (13:20)
[2023-07-29] MEDS: ATORVASTATIN 40 MG TAB PO SCH (13:20)
[2023-07-29] MEDS: KETOROLAC TROMETHAMINE 15 MG/ML VIAL IV SCH ×3 (13:21→23:13)
[2023-07-29] MEDS: DOCUSATE SODIUM 100 MG CAP PO SCH ×2 (13:21→20:01)
[2023-07-29] MEDS: hydroCHLOROthiazide 25 MG TAB PO SCH (13:21)
[2023-07-29] MEDS: DULoxetine HCL 60 MG CAP PO SCH (13:21)
[2023-07-29] MEDS: MULTIVITAMIN TAB PO SCH (13:21)
[2023-07-29] MEDS: ACETAMINOPHEN 500 MG TAB PO SCH ×2 (13:22→21:25)
[2023-07-29] MEDS: LOSARTAN POTASSIUM 50 MG TAB PO SCH (13:22)
[2023-07-29] MEDS: TAMSULOSIN HCL 0.4 MG CAP PO SCH (13:22)
[2023-07-29] MEDS: PANTOprazole 40 MG TAB PO SCH ×2 (13:22→19:59)
[2023-07-29] MEDS ORDERED: ceFAZolin 2000MG 2,000 MG/15 ML SYR IV SCH (15:00)
[2023-07-29] MEDS: ceFAZolin 2000MG 2,000 MG/15 ML SYR IV SCH ×2 (15:16→23:13)
[2023-07-29] MEDS ORDERED: ASPIRIN 81 MG ECTAB PO SCH (18:00)
[2023-07-29] MEDS ORDERED: SENNA 8.6 MG TAB PO SCH (21:00)
[2023-07-30] MEDS: KETOROLAC TROMETHAMINE 15 MG/ML VIAL IV SCH (05:30)
[2023-07-30] MEDS: ACETAMINOPHEN 500 MG TAB PO SCH (05:30)
[2023-07-30] MEDS ORDERED: traMADol HCL 50 MG TABLET PO PRN (07:13)
--- NOTE | 2023-07-30 07:19 | Orthopedic Progress Note ---
Date of Service July 30, 2023 Assessment & Plan (1) Status post right hip replacement: Overall he is doing fairly well. He is not having much pain in the right hip. He will be seen by physical therapy today for ambulation and range of motion exercises. He is on aspirin for DVT prophylaxis. He can be discharged home later today. He will follow-up with orthopedics in 2 weeks. Alba Verduzco was seen and examined at bedside this morning. Overall he is doing fairly well. He is not having much pain in the right hip. He has been up and ambulating into the hallway. He has no complaints.. Review of Systems All systems reviewed & are unremarkable except as noted in HPI & below. Physical Exam On physical examination of the right hip, the dressing is clean and dry. His leg is out full extension. He has active dorsiflexion plantarflexion of the right ankle.. Results & Data Results & Data Laboratory Results . Diagnostic Findings Postoperative x-rays of the right hip show the prosthesis to be in anatomic alignment without any evidence of fracture complication, or loosening. PG Care Time/CCT Total # of Minutes Spent Total Time Spent with Patient: Total time spent is greater than 50% in coordination of care (as documented) at patient's floor/unit and/or counseling patient: Coding Level of Care Code 48305 Post Operative Follow-Up Diagnoses Status post right hip replacement Z96.641
--- NOTE | 2023-07-30 07:20 | Discharge Summary ---
Date of Service July 30, 2023 Admission HPI (Per Admitting) Dax is a pleasant 72-year-old male who I did a left hip replacement on over a year ago. The hip was doing well, but he developed a postoperative infection. He required 6 weeks of IV antibiotics and oral antibiotics. Fortunately, this infection subsided. He is now dealing with more right hip and groin pain. It has been bothering him more and more. Most of his pain is located in his groin. He is struggling with the hip. X-rays and clinical examination been diagnostic for worsening osteoarthritis of the right hip. After failing conservative treatment, he has elected to proceed with a right anterior total of arthroplasty. Admission Exam (Per Admitting) On physical examination of the right hip, he has decreased range of motion. He has pain with forced internal/external rotation. All of his pain is located in his groin.. Principal Diagnosis Same as "Discharge Diagnosis" noted below under Discharge Instructions. Discharge Exam On physical examination of the right hip, the dressing is clean and dry. His leg is out full extension. He has active dorsiflexion plantarflexion of the right ankle.. Discharge Data Procedures Performed Operation Date: 07/29/23 07:00 Actual Procedures p Right Total Hip Arthroplasty Anterior(Right) - Lul Jordan, Ordered Studies 07/29/23 07:00 FL hip RT 1V Routine Hospital Course (1) Status post right hip replacement: On July 29, 2023 Dax arrived at [facility] and underwent a right hip replacement without complication. He had a general anesthetic. Postoperatively he was started on aspirin for DVT prophylaxis and transferred to the general orthopedic floors. His hospital course was uneventful. On postop day #1, his vital signs were stable and his pain was well controlled. He was able to participate well with physical therapy doing ambulation and range of motion exercises. He was then discharged home. He will follow-up with orthopedics in 2 weeks. PG Care Time/CCT Total # of Minutes Spent Total Time Spent with Patient: Total time spent is greater than 50% in coordination of care (as documented) at patient's floor/unit and/or counseling patient: Discharge Plan Discharge Items Patient Disposition: Home - Home Health Services Reason For Visit: POST SURGICAL CARE Discharge Diagnosis: Status post right hip replacement Activity: Per Instructions section Non-emergency contact: Surgeon Call non-emergency contact if: your wound has increased redness and your wound has increased drainage Follow-up/Referrals: Melquiades Persaud MD [Primary Care Provider] - Diet: Regular Addtl Attending Provider Instructions: Activity and Therapy Recommendations: * If you are using [facility] then therapy will be provided at your home until they feel you have accomplished all of your goals. * If you are using [facility] then Physical Therapy will be provided until they feel you are ready to start Outpatient Physical Therapy. * If you are not using home therapy then Outpatient Physical Therapy should start about 3-5 days from your day of surgery. Therapy will last about 6-10 weeks * You were shown a series of exercises in the hospital. Do these exercises three times each day including the exercises you were shown in physical therapy. * Get up and walk several times each day.~ For the first four weeks, try not to stand or walk for more than one hour at a time. If you do stand or walk for more than one hour, you will not hurt anything, but your leg will likely swell.~~ * As you feel comfortable, you may change from the walker or crutches to a cane and~then to independent walking. Medications: * Narcotic You will likely be sent home from the hospital with a prescription for the narcotic pain medication that worked best throughout your stay. * Aspirin Most patients will be required to take Aspirin 81mg twice a day for 6 weeks after surgery. This is obtained [id number] and a prescription is not necessary. * Cefadroxil - take the antibiotic twice a day for 30 days to help prevent infections. * Other medications may be prescribed for specific circumstances. If you have any questions, please call the office at . * Resume previous home medications unless otherwise instructed TEDs/Elastic Stockings: The white elastic stockings help limit swelling and prevent blood clots from forming in your legs. The more you wear them, the more they work. Wear them for six weeks. Dressing Care: Leave the Silverlon dressing in place for 7 days. After 7 days you may remove the dressing. If the incision is not draining then you may leave the edie open to air. If there is a little bit of drainage or if the edie are getting stuck on your clothing then cover the incision with a dry dressing. The edie will be removed at your 2 week follow-up appointment. Showering: You may shower with the Silverlon dressing in place. Do not let the shower spray hit the dressing directly. Pat the Silverlon dressing dry. If the dressing becomes wet underneath, then simply remove the dressing. Keep the incision dry until you are 7 days out from the day of surgery. After 7 days you may remove the Silverlon dressing and shower with the edie exposed. Let soapy water run over the edie and pat them dry. Do not scrub or soak the incision. Things To Watch For: * Drainage from the incision site that occurs more than one week after your surgery. * Increased redness at the incision site. * Fever above 102 degrees Fahrenheit. * Unusual chest pain or shortness of breath. * Call [facility] at with any of the above problems Follow-Up Visit: Follow-up with Dr. Jordan's PA (Lul Gamino) 2-3 weeks after your day of surgery. He will remove your edie and answer any questions. If you have any additional questions or concerns, Dr Jordan is usually in the office at the same time and will be available An appointment was probably scheduled when you signed-up for surgery in the office. If you have any questions call Office Instructions: More detailed instructions as well as Frequently Asked Questions were provided in a folder by our office when you signed-up for surgery. Please review these instructions when you get home. If you have any further questions or concerns, please feel free to call the office at [phone] Pending Studies at Discharge: No Stand-Alone Forms: My [facility], Smoking Cessation Medications and DC Order Prescriptions: New tramadol 50 mg tablet 50 mg PO Q6H PRN (Reason: pain) Qty: 30 0RF cefadroxil 500 mg capsule 500 mg PO BID 30 Days Qty: 60 0RF aspirin [Adult Aspirin Regimen] 81 mg tablet,delayed release (DR/EC) 81 mg PO BID Qty: 84 0RF Continued tamsulosin 0.4 mg capsule 0.4 mg PO DAILY Qty: 90 3RF albuterol sulfate 90 mcg/actuation Hfa Aerosol Inhaler 1 puff INHALATION Q6H PRN (Reason: Wheezing) docusate sodium 100 mg Capsule 100 mg PO DAILY PRN (Reason: Constipation) allopurinol 100 mg Tablet 100 mg PO DAILY colchicine (gout) 0.6 mg Capsule 0.6 mg PO DAILY meloxicam 15 mg tablet 15 mg PO QAM atorvastatin 40 mg tablet 40 mg PO QAM acetaminophen 500 mg Tablet 500 - 1,000 mg PO BID PRN (Reason: Pain) losartan-hydrochlorothiazide 100-12.5 mg tablet 1 tab PO QAM duloxetine [Cymbalta] 60 mg Capsule,Delayed Release(Dr/Ec) 60 mg PO QAM pantoprazole 40 mg Tablet,Delayed Release (Dr/Ec) 40 mg PO BID 30 Days Qty: 60 2RF Rx Instructions: Take at least 30 minutes before first meal of the day Admission Data Admit Date/Time: 07/29/23 08:48 Attending Provider: Lul Jordan Admit Provider: Lul Jordan Primary Care Provider: Melquiades Persaud
[2023-07-30] MEDS ORDERED: dexAMETHasone 4 MG TAB PO SCH (08:00)
[2023-07-30] MEDS: ATORVASTATIN 40 MG TAB PO SCH (08:58)
[2023-07-30] MEDS: PANTOprazole 40 MG TAB PO SCH (08:58)
[2023-07-30] MEDS: COLCHICINE 0.6 MG TAB PO SCH (08:59)
[2023-07-30] MEDS: LOSARTAN POTASSIUM 50 MG TAB PO SCH (08:59)
[2023-07-30] MEDS: DULoxetine HCL 60 MG CAP PO SCH (08:59)
[2023-07-30] MEDS: MULTIVITAMIN TAB PO SCH (09:00)
[2023-07-30] MEDS ORDERED: APIXABAN 2.5 MG TAB PO SCH (09:00)
[2023-07-30] MEDS ORDERED: ASPIRIN 81 MG ECTAB PO SCH (09:00)
[2023-07-30] MEDS: allopurinoL 100 MG TAB PO SCH (09:01)
[2023-07-30] MEDS: hydroCHLOROthiazide 25 MG TAB PO SCH (09:01)
[2023-07-30] MEDS: TAMSULOSIN HCL 0.4 MG CAP PO SCH (09:02)
[2023-07-30] MEDS: DOCUSATE SODIUM 100 MG CAP PO SCH (09:06)
== END 2023-07-30 10:54 | disposition home health service (06) ==
LOC: PACUINP 05:19 → ASU 05:19 → 3W 12:46